=== PATIENT | male | born 1950 | race Caucasian/White ===

== ENCOUNTER 2019-03-17 11:00 | Inpatient (IN) | payer MEDICARE ==
[2019-03-17] MEDS ORDERED: SODIUM CHLORIDE 0.9% 1,000 ML IV STA (11:27)
[2019-03-17 11:46] LABS: Basophils # (A) 0.1 k/uL (0-0.2); Basophils % (A) 1 %; Eosinophils # (A) 0.5 k/uL (0-0.7); Eosinophils % (A) 7 %; HCT 44.7 % (39.0-53.0); HGB 14.6 gm/dL (13.0-17.5); Lymphocytes # (A) 2.1 k/uL (1.0-4.8); Lymphocytes % (A) 27 %; MCH 29.7 pg (25.0-35.0); MCHC 32.7 g/dL (31.0-37.0); MCV 90.7 fL (80.0-100.0); Mean Platelet Volume 7.8; Monocytes # (A) 0.4 k/uL (0-1.0); Monocytes % (A) 5 %; Neutrophils # (A) 4.7 k/uL (1.3-7.7); Neutrophils % (A) 60 %; Platelet Count 227 k/uL (150-450); RBC 4.93 m/uL (4.30-5.90); RDW 15.9 % (11.5-15.5); WBC 7.9 k/uL (3.8-10.6)
--- NOTE | 2019-03-17 11:51 | ED ---
Neuro HPI - General Chief Complaint: Neuro Symptoms/Deficit Stated Complaint: poss cva Time Seen by Provider: 03/17/19 11:11 Source: patient Mode of arrival: wheelchair Limitations: no limitations - History of Present Illness Is the patient presenting with stroke symptoms?: Yes Last Known Well Date: 03/15/19 -: days(s) Initial Comments: This is a 68-year-old male the ER for evaluation. Patient resents to ER for evaluation of strokelike symptoms slurred speech right-sided facial droop right- sided eye droop. Symptoms noted on Sunday they did and have mildly improved since. Symptoms of surgeon is to continue to wax and wane. Patient has elevated blood pressure takes no blood pressure medication. No significant medical history takes no medications. Patient occasionally will take a daily aspirin. Denies headache. No trauma. No fevers. Location: right face History of same: No Place: home Severity: mild Quality: weak Improves With: time Worsens With: none On Anticoagulants: No Context: sudden onset Associated Symptoms: denies other symptoms Treatments Prior to Arrival: none - Related Data Home Medications: Home Medications Medication Instructions Recorded Confirmed Aspirin EC [Ecotrin Low Dose] 81 mg PO DAILY 03/17/19 03/17/19 Cetirizine HCl [Zyrtec] 10 mg PO DAILY 03/17/19 03/17/19 Allergies/Adverse Reactions: Allergies Allergy/AdvReac Type Severity Reaction Status Date / Time No Known Allergies Allergy Verified 03/17/19 11:25 Review of Systems ROS Statement: Those systems with pertinent positive or pertinent negative responses have been documented in the HPI. ROS Other: All systems not noted in ROS Statement are negative. General Exam - General Exam Comments Initial Comments: NIH is 2 slurred speech Limitations: no limitations General appearance: alert, in no apparent distress Head exam: Present: atraumatic, normocephalic, normal inspection Eye exam: Present: normal appearance, PERRL, EOMI. Absent: scleral icterus, conjunctival injection, periorbital swelling ENT exam: Present: normal exam, mucous membranes moist Neck exam: Present: normal inspection. Absent: tenderness, meningismus, l ymphadenopathy Respiratory exam: Present: normal lung sounds bilaterally. Absent: respiratory distress, wheezes, rales, rhonchi, stridor Cardiovascular Exam: Present: regular rate, normal rhythm, normal heart sounds. Absent: systolic murmur, diastolic murmur, rubs, gallop, clicks GI/Abdominal exam: Present: soft, normal bowel sounds. Absent: distended, tenderness, guarding, rebound, rigid Extremities exam: Present: normal inspection, full ROM, normal capillary refill. Absent: tenderness, pedal edema, joint swelling, calf tenderness Back exam: Present: normal inspection Neurological exam: Present: alert, oriented X3, CN II-XII intact Psychiatric exam: Present: normal affect, normal mood Skin exam: Present: warm, dry, intact, normal color. Absent: rash Stroke MDM - Lab Data Result diagrams: 03/17/19 11:20 03/17/19 11:20 Lab Results 03/17/19 03/17/19 03/17/19 Range/Units 11:20 11:20 11:20 WBC 7.9 (3.8-10.6) k/uL RBC 4.93 (4.30-5.90) m/uL Hgb 14.6 (13.0-17.5) gm/dL Hct 44.7 (39.0-53.0) % MCV 90.7 (80.0-100.0) fL MCH 29.7 (25.0-35.0) pg MCHC 32.7 (31.0-37.0) g/dL RDW 15.9 H (11.5-15.5) % Plt Count 227 (150-450) k/uL Neutrophils % 60 % Lymphocytes % 27 % Monocytes % 5 % Eosinophils % 7 % Basophils % 1 % Neutrophils # 4.7 (1.3-7.7) k/uL Lymphocytes # 2.1 (1.0-4.8) k/uL Monocytes # 0.4 (0-1.0) k/uL Eosinophils # 0.5 (0-0.7) k/uL Basophils # 0.1 (0-0.2) k/uL PT 9.6 (9.0-12.0) sec INR 0.9 (<1.2) APTT 24.6 (22.0-30.0) sec Sodium 140 (137-145) mmol/L Potassium 4.2 (3.5-5.1) mmol/L Chloride 104 (98-107) mmol/L Carbon Dioxide 27 (22-30) mmol/L Anion Gap 9 mmol/L BUN 23 H (9-20) mg/dL Creatinine 1.25 (0.66-1.25) mg/dL Est GFR (CKD-EPI)AfAm 69 (>60 ml/min/1.73 sqM) Est GFR (CKD-EPI)NonAf 60 (>60 ml/min/1.73 sqM) Glucose 131 H (74-99) mg/dL Calcium 9.3 (8.4-10.2) mg/dL Total Bilirubin 0.7 (0.2-1.3) mg/dL AST 48 (17-59) U/L ALT 80 H (21-72) U/L Alkaline Phosphatase 186 H (38-126) U/L Troponin I (0.000-0.034) ng/mL Total Protein 7.6 (6.3-8.2) g/dL Albumin 4.2 (3.5-5.0) g/dL Urine Color Urine Appearance (Clear) Urine pH (5.0-8.0) Ur Specific Anthony (1.001-1.035) Urine Protein (Negative) Urine Glucose (UA) (Negative) Urine Ketones (Negative) Urine Blood (Negative) Urine Nitrite (Negative) Urine Bilirubin (Negative) Urine Urobilinogen (<2.0) mg/dL Ur Leukocyte Esterase (Negative) 03/17/19 03/17/19 Range/Units 11:20 12:15 WBC (3.8-10.6) k/uL RBC (4.30-5.90) m/uL Hgb (13.0-17.5) gm/dL Hct (39.0-53.0) % MCV (80.0-100.0) fL MCH (25.0-35.0) pg MCHC (31.0-37.0) g/dL RDW (11.5-15.5) % Plt Count (150-450) k/uL Neutrophils % % Lymphocytes % % Monocytes % % Eosinophils % % Basophils % % Neutrophils # (1.3-7.7) k/uL Lymphocytes # (1.0-4.8) k/uL Monocytes # (0-1.0) k/uL Eosinophils # (0-0.7) k/uL Basophils # (0-0.2) k/uL PT (9.0-12.0) sec INR (<1.2) APTT (22.0-30.0) sec Sodium (137-145) mmol/L Potassium (3.5-5.1) mmol/L Chloride (98-107) mmol/L Carbon Dioxide (22-30) mmol/L Anion Gap mmol/L BUN (9-20) mg/dL Creatinine (0.66-1.25) mg/dL Est GFR (CKD-EPI)AfAm (>60 ml/min/1.73 sqM) Est GFR (CKD-EPI)NonAf (>60 ml/min/1.73 sqM) Glucose (74-99) mg/dL Calcium (8.4-10.2) mg/dL Total Bilirubin (0.2-1.3) mg/dL AST (17-59) U/L ALT (21-72) U/L Alkaline Phosphatase (38-126) U/L Troponin I <0.012 (0.000-0.034) ng/mL Total Protein (6.3-8.2) g/dL Albumin (3.5-5.0) g/dL Urine Color Light Yellow Urine Appearance Clear (Clear) Urine pH 5.0 (5.0-8.0) Ur Specific Anthony 1.015 (1.001-1.035) Urine Protein Negative (Negative) Urine Glucose (UA) Negative (Negative) Urine Ketones Negative (Negative) Urine Blood Negative (Negative) Urine Nitrite Negative (Negative) Urine Bilirubin Negative (Negative) Urine Urobilinogen <2.0 (<2.0) mg/dL Ur Leukocyte Esterase Negative (Negative) - NIH Stroke Scale 1a. Level of Consciousness: (0) alert 1b. LOC Questions: (0) answers correctly 1c. LOC Commands: (0) performs tasks correctly 2. Best Gaze: (0) normal 3. Visual: (0) no visual loss 4. Facial Palsy: (0) normal symmetrical movement 5a. Motor Arm Left: (0) no drift 5b. Motor Arm Right: (0) no drift 6a. Motor Leg Left: (0) no drift 6b. Motor Leg Right: (0) no drift 7. Limb Ataxia: (0) absent 8. Sensory: (0) normal 9. Best Language: (1) mild/moderate aphasia 10. Dysarthria: (1) mild/moderate dysarthria 11. Extinction/Inattention: (0) no abnormality - Thrombolytic Inclusion/Exclusion Thrombolytic Exclusion Criteria: Symptom Onset > 3 Hours - Medical Decision Making 68 male the ER for evaluation hypertensive emergency with strokelike symptoms. Patient be admitted for blood pressure control aspirin neurology evaluation and continue monitoring of blood pressure - Radiology Data Radiology results: report reviewed (CT brain CTA had not negative for acute disease), image reviewed - EKG Data -: EKG Interpreted by Me (EKG shows normal sinus rhythm rate of 71, [place] 144, QRS 74, QTc 458) Past Medical History Past Medical History: No Reported History History of Any Multi-Drug Resistant Organisms: None Reported Past Surgical History: No Surgical Hx Reported Past Psychological History: No Psychological Hx Reported Smoking Status: Current some day smoker Past Alcohol Use History: Occasional Past Drug Use History: Marijuana Course Vital Signs 03/17/19 03/17/19 03/17/19 11:05 11:30 11:40 Temperature 98.5 F Pulse Rate 73 68 67 Respiratory 16 16 16 Rate Blood Pressure 213/113 208/108 192/143 O2 Sat by Pulse 97 96 97 Oximetry 03/17/19 12:50 Temperature Pulse Rate 60 Respiratory Rate Blood Pressure 204/94 O2 Sat by Pulse 98 Oximetry - Reevaluation(s) Reevaluation #1: 03/17/19 13:42 Medical records reviewed Reevaluation #2: 03/17/19 13:42 Patient's blood pressures improved remains severely elevated Critical Care Time Critical Care Time: Yes Total Critical Care Time: 31 Disposition Clinical Impression: Cerebrovascular accident, Hypertensive emergency Disposition: ADMITTED IP TO THIS [facility] Condition: Fair Is patient prescribed a controlled substance at d/c from ED?: No Referrals: Madhu Lombardo MD [Primary Care Provider] - 1-2 days
[2019-03-17 11:56] LABS: Albumin 4.2 g/dL (3.5-5.0); Calcium 9.3 mg/dL (8.4-10.2); Potassium 4.2 mmol/L (3.5-5.1); Total Bilirubin 0.7 mg/dL (0.2-1.3); Total Protein 7.6 g/dL (6.3-8.2)
[2019-03-17 12:01] LABS: INR 0.9 (<1.2)
[2019-03-17 12:02] LABS: Partial Thromboplastin Time 24.6 sec (22.0-30.0); Prothrombin Time 9.6 sec (9.0-12.0)
--- NOTE | 2019-03-17 12:19 | XR ---
EXAMINATION TYPE: XR chest 2V DATE OF EXAM: 03/17/2019 COMPARISON: NONE HISTORY: Altered mental status, slurred speech TECHNIQUE: Frontal and lateral views of the chest are obtained. FINDINGS: There is no focal air space opacity, pleural effusion, or pneumothorax seen. The cardiac silhouette size is within normal limits. The osseous structures are intact. There are overlying car diac leads. IMPRESSION: No acute cardiopulmonary process.
--- NOTE | 2019-03-17 12:20 | CT ---
EXAMINATION TYPE: CT brain wo con for TPA DATE OF EXAM: 03/17/2019 COMPARISON: None HISTORY: 68-year-old male Episode of right side facial numbness, droop, and slurred speech 3 days ago . TECHNIQUE: Examination was done in axial plane without intravenous contrast. Coronal and sagittal r econstructions performed. CT DLP: 1098.8 mGycm Automated exposure control for dose reduction was used. FINDINGS: There is no evidence of acute intracranial hemorrhage, acute ischemic changes, mass, mass-effect, or extra-axial fluid collection. There is no effacement of cerebral sulci or basal subarachnoid cister ns. There is no hydrocephalus. There is no midline shift. Weber-white matter distinction is preserv ed. Mild bifrontal cortical atrophy. Mild mucosal thickening right maxillary sinus. Cerumen within the right greater than left external au ditory canals. Mastoid air cells are well pneumatized. Orbits and globes appear intact. IMPRESSION: Mild bifrontal atrophy. No acute intracranial abnormality seen.
--- NOTE | 2019-03-17 12:29 | CT ---
EXAMINATION TYPE: CT angio head neck DATE OF EXAM: 03/17/2019 COMPARISON: CT brain noncontrast same day HISTORY: 68-year-old male with an episode of right side facial numbness, droop, and slurred speech 3 days ago. TECHNIQUE: Contiguous axial scanning of the neck and brain performed with IV Contrast, patient inject ed with 50 mL of Isovue 370. Coronal/sagittal MIP reconstructions performed. 3-D reconstructions gene rated on a dedicated independent workstation. CT DLP: 609.5 mGycm Automated exposure control for dose reduction was used. FINDINGS: Neck: Mild emphysematous change in the visualized upper lungs. Left apical pleural parenchymal scarring. Pr ominent adherent mucus and debris along the right posterolateral tracheal wall. There is conventional arterial vessel branching anatomy. Mild to moderate atherosclerotic plaque reva g the aortic arch. Brachiocephalic artery, right common carotid, and right internal carotid arteries are patent. Minimal atherosclerotic calcification at the right carotid bifurcation. There is retropharyngeal course of t he right CCA and ICA causing impression on the posterior pharyngeal wall. Left common and internal carotid arteries are patent with minimal atherosclerotic calcification of th e carotid bulb. Bilateral vertebral arteries are patent. Right vertebral artery is dominant. Head: The left vertebral artery becomes hypoplastic after the takeoff of the PICA. Diminutive versus hypoplastic P1 segment left posterior cerebral artery. Basilar artery is patent. Mild atherosclerotic calcifications within the carotid siphons. Anterior circulation appears patent. No aneurysmal change seen in the significant stenosis identified . IMPRESSION: 1. HEAD: DIMINUTIVE VERSUS HYPOPLASTIC P1 SEGMENT LEFT POSTERIOR CEREBRAL ARTERY. CORRELATE FOR POSSI BILITY OF FOCAL MODERATE TO SEVERE STENOSIS HERE. OTHERWISE, NO LARGE VESSEL INTRACRANIAL ARTERIAL OC CLUSION OR ANEURYSMAL CHANGE SEEN. 2. NECK: NO ICA STENOSIS. INCIDENTALLY, THE NONDOMINANT LEFT VERTEBRAL ARTERY BECOMES HYPOPLASTIC AFT ER THE LEFT PICA TAKEOFF.
[2019-03-17 12:49] LABS: Appearance,Urine Clear (Clear); Bilirubin,Urine Negative (Negative); Blood,Urine Negative (Negative); Color,Urine Light Yellow; Glucose,Urine (UA) Negative (Negative); Ketones,Urine Negative (Negative); Leukocyte Esterase,Urine Negative (Negative); Nitrite,Urine Negative (Negative); Protein,Urine Negative (Negative); Specific Gravity,Urine 1.015 (1.001-1.035); Urobilinogen,Urine <2.0 mg/dL (<2.0)
[2019-03-17] MEDS ORDERED: LABETALOL SYRINGE 5 MG/ML IVP STA (12:50)
[2019-03-17] MEDS ORDERED: ASPIRIN 81 MG PO STA (12:50)
[2019-03-17 14:59] VITALS: BMI 27.7
[2019-03-17] MEDS: SODIUM CHLORIDE 0.9% 1,000 ML IV SCH ×2 (16:33→19:56)
[2019-03-17] MEDS ORDERED: NALOXONE 0.4 MG/ML 1 ML VIAL IV PRN (17:13)
[2019-03-17] MEDS ORDERED: ACETAMINOPHEN TAB 325 MG TAB PO PRN (17:13)
--- NOTE | 2019-03-17 17:14 | P.HPIM ---
History of Present Illness H&P Date: 03/17/19 Chief Complaint: Neurological deficit 68-year-old male with no significant past medical history presents the ED for slurred speech, left-sided facial droop that has been ongoing since Sunday. Patient states that he was playing poker when the symptoms happened Sunday night. Symptoms lasted for 5 minutes and slowly went away. Patient also complained of slurred speech at that time. He denies any difficulty concentrating. He denies any difficult swallowing food. He denied any confusion. He denies any headache, lower extremity edema, nausea, vomiting, fever, cough, chest pain, shortness breath, changes in urination or bowel habits. No changes in appetite or weight. He denies any dizziness, numbness/weakness/tingling of the extremities. In the ED, his BP was 204/94. Vital signs were otherwise stable. CT of the brain was negative. CTA head and neck showed possible stenosis in the posterior left cerebral artery. CBC and CMP were unremarkable. Troponin was negative. Urinalysis was negative. Patient is admitted for possible CVA, neurology is consulted. Review of Systems Pertinent positives and negatives as discussed in HPI, a complete review of systems was performed and all other systems are negative. Past Medical History Past Medical History: GERD/Reflux, Hyperlipidemia, Hypertension Additional Past Medical History / Comment(s): Severe B12 deficiency, allergic rhinitis, pt/spouse state pt does not go to see a PCP very often. History of Any Multi-Drug Resistant Organisms: None Reported Past Surgical History: No Surgical Hx Reported Smoking Status: Current every day smoker - Past Family History Father Family Medical History: Congestive Heart Failure (CHF) Additional Family Medical History / Comment(s): Father at the age of 82 yrs from CHF. Mother Family Medical History: No Reported History Additional Family Medical History / Comment(s): Mother was healthy, not on any medications and lived to be 92 yrs old. Medications and Allergies Home Medications Medication Instructions Recorded Confirmed Type Aspirin EC [Ecotrin Low Dose] 81 mg PO DAILY 03/17/19 03/17/19 History Cetirizine HCl [Zyrtec] 10 mg PO DAILY 03/17/19 03/17/19 History Allergies Allergy/AdvReac Type Severity Reaction Status Date / Time No Known Allergies Allergy Verified 03/17/19 11:25 Physical Exam Vitals: Vital Signs Temp Pulse Resp BP Pulse Ox 03/17/19 16:00 51 L 162/86 97 03/17/19 15:00 49 L 165/96 95 03/17/19 14:00 155/92 93 L 03/17/19 13:40 54 L 18 161/96 94 L 03/17/19 12:50 60 204/94 98 03/17/19 11:40 67 16 192/143 97 03/17/19 11:30 68 16 208/108 96 03/17/19 11:05 98.5 F 73 16 213/113 97 Intake and Output 03/17/19 03/17/19 03/17/19 06:59 14:59 22:59 Other: Weight 103.419 kg General: [non toxic], [no distress], [appears at stated age] Derm: [warm], [dry] Head: [atraumatic], [normocephalic], [symmetric] Eyes: [EOMI], [no lid lag], [anicteric sclera] Mouth: [no lip lesion], [mucus membranes moist] Cardiovascular: [S1S2 reg], [no murmur], [positive posterior tibial pulse bilateral], Lungs: [CTA bilateral], [no rhonchi, no rales] , [no accessory muscle use] Abdominal: [soft], [ nontender to palpation], [no guarding], [no appreciable organomegaly] Ext: [no gross muscle atrophy], [no edema], [no contractures] Neuro: [ CN II-XI grossly intact except for cranial nerve VII on the left side], [no focal neuro deficits] Psych: [Alert], [oriented], [appropriate affect] Results CBC & Chem 7: 03/17/19 11:20 03/17/19 11:20 Labs: Abnormal Lab Results - Last 24 Hours (Table) 03/17/19 03/17/19 Range/Units 11:20 11:20 RDW 15.9 H (11.5-15.5) % BUN 23 H (9-20) mg/dL Glucose 131 H (74-99) mg/dL ALT 80 H (21-72) U/L Alkaline Phosphatase 186 H (38-126) U/L Thrombosis Risk Factor Assmnt - Choose All That Apply Any of the Below Risk Factors Present?: Yes Each Factor Represents 1 point: Obesity (BMI >25) Other Risk Factors: Yes Other congenital or acquired thrombophilia - If yes, enter type in comment: No Each Risk Factor Represents 5 Points: Stroke (< 1 month) Thrombosis Risk Factor Assessment Total Risk Factor Score: 6 Thrombosis Risk Factor Assessment Level: High Risk Assessment and Plan Assessment: Assessment and Plan Slurred speech, right-sided facial droop, concerns for CVA Hypertensive urgency Symptoms concerning of CVA. Brain CT shows no acute intracranial abnormality. CTA of the head and neck shows possible stenosis of the left posterior cerebral artery. Plans: Follow MRI brain. Follow-up echocardiogram. Follow A1c and lipid panel. Follow PT, OT and ST. Follow neurology consultation. Out of the window for permissive hypertension or for TPA. Continue aspirin and Lipitor. BP 162/86. Plans: Start amlodipine 10 mg by mouth daily. Start lisinopril 10 mg by mouth daily.. Monitor vitals, adjust medications as necessary. DVT prophylaxis heparin 5000 units subcutaneously twice a day. DVT prophylaxis: [Heparin] Discussed with: [Patient and ] Anticipated discharge: [Home] Anticipated discharge place: [1-2 days] A total of [45] minutes was spent on the care of this complex patient more than 50% of the time was spent in counseling and care coordination.
[2019-03-17] MEDS: amLODIPine 10 MG TAB PO SCH (17:42)
[2019-03-17] MEDS: LISINOPRIL 10 MG TAB PO SCH (17:42)
[2019-03-17] MEDS: HEPARIN SODIUM,PORCINE 5,000 UNIT/ML 1 ML VIAL SQ SCH (19:54)
[2019-03-17] MEDS ORDERED: ATORVASTATIN 80 MG TAB PO SCH (21:00)
[2019-03-18 03:15] LABS: Cholesterol 195 mg/dL (<200); HDL Cholesterol 41 mg/dL (40-60); LDL Cholesterol,Calculated 108 mg/dL (0-99); Triglycerides 228 mg/dL (<150)
[2019-03-18] MEDS: HEPARIN SODIUM,PORCINE 5,000 UNIT/ML 1 ML VIAL SQ SCH (08:04)
[2019-03-18] MEDS: amLODIPine 10 MG TAB PO SCH (08:04)
[2019-03-18] MEDS: LISINOPRIL 10 MG TAB PO SCH (08:04)
[2019-03-18] MEDS ORDERED: ASPIRIN 325 MG TAB PO SCH (09:00)
[2019-03-18 10:44] VITALS: RESP 16; TEMP 97.6
--- NOTE | 2019-03-18 11:11 | MR ---
MR brain without contrast HISTORY: Cerebral vascular accident Multiplanar multisequence imaging through the brain and correlated to CT brain 03/17/2019 There is restricted diffusion present within the posterior limb internal capsule, globus pallidus on the right, corresponding hyperintensity is present on T2 and inversion recovery sequences consistent with patient's history of surgery last accident. There is no hemorrhage or hydrocephalus. Some scatte red hyperintensities are present within the deep white matter on inversion recovery T2-weighted seque nces, approximately 5 lesions. There are normal vascular flow voids. Cerebellopontine angles, corpus callosum, pituitary, cervical medullary junction are normal. Orbits show symmetric appearance. Mild m ucosal disease present within the maxillary sinuses. Orbits show symmetric appearance. IMPRESSION: Subacute infarct as described.
--- NOTE | 2019-03-18 11:48 | P.PN ---
Subjective Progress Note Date: 03/18/19 Principal diagnosis: CVA Patient was seen and examined. No acute events overnight. Patient reports no changes in symptoms from last night. He does complain of facial droop. He denies chest pain, shortness of breath or palpitations. Wanting to go home. Objective - Vital Signs Vital signs: Vital Signs Temp 97.6 F 03/18/19 07:50 Pulse 64 03/18/19 07:50 Resp 16 03/18/19 07:50 BP 172/89 03/18/19 07:50 Pulse Ox 96 03/18/19 07:50 Intake & Output 03/17/19 03/18/19 03/18/19 18:59 06:59 18:59 Intake Total 300 480 Output Total 1100 Balance 300 -620 Weight 103.419 kg 101 kg Intake: Intake, IV Titration 300 Amount Sodium Chloride 0.9% 1, 300 000 ml @ 100 mls/hr IV . Q10H [facility] Rx#:[id number] Oral 480 Output: Urine 1100 Other: # Voids 1 - Exam General: [non toxic], [no distress], [appears at stated age] Derm: [warm], [dry] Head: [atraumatic], [normocephalic], [symmetric] Eyes: [EOMI], [no lid lag], [anicteric sclera] Mouth: [no lip lesion], [mucus membranes moist] Cardiovascular: [S1S2 reg], [no murmur], [positive posterior tibial pulse bilateral], Lungs: [CTA bilateral], [no rhonchi, no rales] , [no accessory muscle use] Abdominal: [soft], [ nontender to palpation], [no guarding], [no appreciable organomegaly] Ext: [no gross muscle atrophy], [no edema], [no contractures] Neuro: [ CN II-XI grossly intact except for cranial nerve VII on the left side], [no focal neuro deficits] Psych: [Alert], [oriented], [appropriate affect] - Labs CBC & Chem 7: 03/17/19 11:20 03/17/19 11:20 Labs: Abnormal Lab Results - Last 24 Hours (Table) 03/17/19 03/17/19 03/17/19 Range/Units 11:20 11:20 11:20 RDW 15.9 H (11.5-15.5) % BUN 23 H (9-20) mg/dL Glucose 131 H (74-99) mg/dL ALT 80 H (21-72) U/L Alkaline Phosphatase 186 H (38-126) U/L Triglycerides 228 H (<150) mg/dL LDL Cholesterol, Calc 108 H (0-99) mg/dL Assessment and Plan Assessment: Assessment and Plan Slurred speech, right-sided facial droop, concerns for CVA Hypertensive urgency Symptoms concerning of CVA. Brain CT shows no acute intracranial abnormality. CTA of the head and neck shows possible stenosis of the left posterior cerebral artery. MRI brain shows subacute CVA within the posterior limb of the internal capsule. Lipid panel shows LDL 108 and T. Chol 228. Plans: Follow-up echocardiogram. Follow A1c. Follow PT, OT and ST. Follow neurology consultation. Out of the window for permissive hypertension or for TPA. Continue aspirin and Lipitor. BP 172/89. Plans: Start amlodipine 10 mg by mouth daily. Start lisinopril 10 mg by mouth daily. Add Coreg 3.125 mg PO BID. Monitor vitals, adjust medications as necessary. DVT prophylaxis heparin 5000 units subcutaneously twice a day. CVA workup pending. Will DC when complete and Neuro evaluation.
[2019-03-18] MEDS: SODIUM CHLORIDE 0.9% 1,000 ML IV SCH (11:50)
--- NOTE | 2019-03-18 11:56 | ECHOF ---
Referral Reason:CVA MEASUREMENTS -------- HEIGHT: 188.0 cm WEIGHT: 102.5 kg BP: IVSd: 1.4 cm (0.6 - 1.1) LVIDd: 3.2 cm (3.9 - 5.3) LVPWd: 1.5 cm (0.6 - 1.1) IVSs: 2.0 cm LVIDs: 2.3 cm LVPWs: 1.4 cm LAESV Index (A-L): 18.43 ml/m Ao Diam: 3.5 cm (2.0 - 3.7) AV Cusp: 2.0 cm (1.5 - 2.6) LA Diam: 3.3 cm (2.7 - 3.8) MV EXCURSION: 11.714 mm (> 18.000) MV EF SLOPE: 80 mm/s (70 - 150) EPSS: 1.3 cm MV E Nicolás: 0.72 m/s MV A Nicolás: 0.85 m/s MV E/A Ratio: 0.85 RAP: 15.00 mmHg RVSP: 28.36 mmHg FINDINGS -------- Sinus rhythm. This was a technically good study. The left ventricular size is normal. There is moderate concentric left ventricular hypertrophy. O verall left ventricular systolic function is normal with, an EF between 55 - 60 %. The right ventricular wall thickness is normal measuring < 5mm. The left atrial size is normal. Normal LA size by volume 22+/-6 ml/m2. The right atrial size is normal. Interatrial and interventricular septum intact. The aortic valve is trileaflet and appears structurally normal. The mitral valve is normal. The mitral valve leaflets are mildly thickened. Mild mitral regurgita tion is present. Mild tricuspid regurgitation present. Right ventricular systolic pressure is normal at < 35 mmHg. There is no pulmonic regurgitation present. The aortic root size is normal. The inferior vena cava is mildly dilated but collapses. There is no pericardial effusion. CONCLUSIONS -------- 1. Sinus rhythm. 2. This was a technically good study. 3. The left ventricular size is normal. 4. There is moderate concentric left ventricular hypertrophy. 5. Overall left ventricular systolic function is normal with, an EF between 55 - 60 %. 6. The right ventricular wall thickness is normal measuring < 5mm. 7. The left atrial size is normal. 8. Normal LA size by volume 22+/-6 ml/m2. 9. The right atrial size is normal. 10. Interatrial and interventricular septum intact. 11. The aortic valve is trileaflet and appears structurally normal. 12. The mitral valve is normal. 13. The mitral valve leaflets are mildly thickened. 14. Mild mitral regurgitation is present. 15. Mild tricuspid regurgitation present. 16. Right ventricular systolic pressure is normal at < 35 mmHg. 17. There is no pulmonic regurgitation present. 18. The aortic root size is normal. 19. The inferior vena cava is mildly dilated but collapses. 20. There is no pericardial effusion. RECORDS MANAGEMENT CLERK: Nena Jeffery RDCS
[2019-03-18] MEDS: CARVEDILOL 3.125 MG TAB PO SCH ×2 (12:31→17:31)
[2019-03-18 14:39] LABS: Hemoglobin A1C 5.7 % (4.0-6.0)
--- NOTE | 2019-03-18 14:40 | P.CNNES ---
History of Present Illness Consult date: 03/18/19 Requesting physician: Jarek Kyle Reason for Consult: CVA Chief complaint: "I have a left facial droop since last Sunday" History of Present Illness: 68 RH male whose vascular risk factors include advancing age, HTN and tobacco use who was playing poker on 03/14/19 when he developed acute onset of left facial droop with slurred speech. His FD has improved since then but not resolved. No facial numbness or other focal neuro sx. He stopped taking his antihypertensives years ago. Does take an aspirin everyday and had been prior to his new-onset FD and dysarthria. Reportedly, he passed the dysphagia screen in the ER and was seen by SP this morning. He just had some pizza and is now coughing. Review of Systems 14-point ROS performed and as per HPI. Neurologically, patient denies decreased level or loss of consciousness, headache, seizure, changes in vision, diplopia, amaurosis, changes in hearing, facial numbness, ptosis, vertigo, hearing loss, tinnitus, aphasia, other focal numbness/weakness not mentioned above, tremors, bowel/bladder incontinence or ataxia. Past Medical History Past Medical History: GERD/Reflux, Hyperlipidemia, Hypertension Additional Past Medical History / Comment(s): Severe B12 deficiency, allergic rhinitis, pt/spouse state pt does not go to see a PCP very often. History of Any Multi-Drug Resistant Organisms: None Reported Past Surgical History: No Surgical Hx Reported Smoking Status: Current every day smoker - Past Family History Father Family Medical History: Congestive Heart Failure (CHF) Additional Family Medical History / Comment(s): Father at the age of 82 yrs from CHF. Mother Family Medical History: No Reported History Additional Family Medical History / Comment(s): Mother was healthy, not on any medications and lived to be 92 yrs old. Medications and Allergies Home Medications Medication Instructions Recorded Confirmed Type Aspirin EC [Ecotrin Low Dose] 81 mg PO DAILY 03/17/19 03/17/19 History Cetirizine HCl [Zyrtec] 10 mg PO DAILY 03/17/19 03/17/19 History Allergies Allergy/AdvReac Type Severity Reaction Status Date / Time No Known Allergies Allergy Verified 03/17/19 11:25 Physical Examination - Vital Signs Vital Signs: Vital Signs Temp Pulse Pulse Resp BP BP Pulse Ox 03/18/19 07:50 97.6 F 64 16 172/89 96 03/18/19 04:00 98 F 57 L 20 143/74 96 03/17/19 23:30 97.4 F L 60 18 167/71 96 03/17/19 19:54 59 L 18 185/88 96 03/17/19 18:50 57 L 16 190/85 96 03/17/19 16:50 98.1 F 56 L 18 210/103 99 03/17/19 16:00 51 L 162/86 97 03/17/19 15:00 49 L 165/96 95 Intake and Output 03/17/19 03/18/19 03/18/19 22:59 06:59 14:59 Intake Total 300 480 Output Total 1100 Balance 300 -620 Intake: Intake, IV Titration 300 Amount Sodium Chloride 0.9% 1, 300 000 ml @ 100 mls/hr IV . Q10H [facility] Rx#:[id number] Oral 480 Output: Urine 1100 Other: # Voids 1 Weight 101 kg Gen NAD Pleasant and cooperative HEENT NCAT Sclera without icterus O/P clear Neck Supple No carotid bruit Cor RRR no m/r/g Lungs CTAB Abd Soft NTND +BS Ext Warm to touch No edema Neuro MS A+Ox4 Normal fluency Able to follow all commands CN PERRL VFF no APD EOMI no nystagmus or HERMAN No Left UMN FD [place]'s symmetric Hearing intact to normal voice bilaterally Speech not dysarthric Equal elevation of palate Tongue midline Sym shrug and SCM bilaterally Motor Normal bulk/tone No pronator drift or tremors Strength 5/5 sym throughout Sens Intact to LT x4 No neglect or extinction Coord No dysmetria on FTN bilaterally DTRs 2+/4 sym throughout Toes downgoing bilaterally No clonus at achilles Gait Deferred NIHSS [address] head without contrast 03/17/19. Mild bifrontal atrophy. No acute intracranial abnormality seen. CT angiogram of the head and neck 03/17/19. 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 Otherwise no intra-or extracranial large vessel stenosis or occlusion. Incidental finding of nondominant left vertebral artery that becomes hypoplastic after doing left PICA takeoff. MRI Brain without gadolinium 03/18/19. Area of restricted diffusion in the posterior limb of the internal capsule and globus pallidus on the right with corresponding hypointensity on T2/FLAIR sequences suggestive of subacute ischemic infarct. There are also scattered subcortical hyperintensities bilaterally consistent with chronic microvascular ischemic disease. Transthoracic echocardiogram 03/18/19. Left ventricular size is normal. There is moderate concentric left ventricular hypertrophy. EF is between 55-60%. Left atrial size is normal. Inter-atrial and interventricular septum intact. No intracardiac thrombi are seen. - Laboratory Findings CBC and BMP: 03/17/19 11:20 03/17/19 11:20 Abnormal Lab Findings: Abnormal Labs 03/17/19 03/17/19 03/17/19 11:20 11:20 11:20 RDW 15.9 H BUN 23 H Glucose 131 H ALT 80 H Alkaline Phosphatase 186 H Triglycerides 228 H LDL Cholesterol, Calc 108 H Assessment and Plan Assessment: Right IC/GP subacute ischemic infarct, likely due to intracranial ath erosclerosis/thrombosis from uncontrolled HTN and ongoing tobacco use. 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 Plan: -Since patient was compliant with aspirin prior to his current stroke, will switch him to clopidogrel 75mg/day indefinitely. -Statin therapy. -Fine to treat BP to normotensive range as he is 4 days out from the onset of his acute stroke that is now subacute. -Goals BP <130/80, hga1c <7.0 and LDL <70. -Tobacco cessation counseling done. -Stroke education given to patient and . -PT/OT/SP per protocol. Since he is coughing after eating pizza, I have asked SP to come evaluate him again. -DVT prophylaxis: Heparin SC. -d/w patient and . All questions answered. -Once cleared by SP, may discharge from neuro standpoint. Please refer to outpatient neurology for follow-up within next 2-3 weeks. -No further neuro recs at this time. Please call with new ?. Thank you for this consultation. Time with Patient: Greater than 30 (Time spent in direct patient care, greater than 50% of which was spent in [id number] counseling and coordination of care: 70 minutes.)
[2019-03-18] MEDS ORDERED: CLOPIDOGREL 75 MG TAB PO SCH (14:45)
--- NOTE | 2019-03-18 16:22 | P.DS ---
Providers Date of admission: 03/17/19 13:33 Expected date of discharge: 03/18/19 Attending physician: Fallon Bajwa MD Consults: 03/18/19 09:24 Consult Physician Routine Consulting Provider: Hemal Martinez Consult Reason/Comments: cva Do you want consulting provider notified?: Yes Primary care physician: [facility] Course: 68-year-old male with no significant past medical history presents the ED for slurred speech, left-sided facial droop that has been ongoing since Sunday. Patient states that he was playing poker when the symptoms happened Sunday night. Symptoms lasted for 5 minutes and slowly went away. Patient also complained of slurred speech at that time. He denies any difficulty concentrating. He denies any difficult swallowing food. He denied any confusion. He denies any headache, lower extremity edema, nausea, vomiting, fever, cough, chest pain, shortness breath, changes in urination or bowel habits. No changes in appetite or weight. He denies any dizziness, numbness/weakness/tingling of the extremities. In the ED, his BP was 204/94. Vital signs were otherwise stable. CT of the brain was negative. CTA head and neck showed possible stenosis in the posterior left cerebral artery. CBC and CMP were unremarkable. Troponin was negative. Urinalysis was negative. Patient is admitted for possible CVA, neurology is consulted. CT of the head and neck showed possible stenosis of the left posterior cervical artery. MRI of the brain showed subacute stroke within the posterior limb of the internal capsule. Lipid panel showed LDL and total cholesterol 228. Echocardiogram showed EF of 55-60% with moderate LVH. Neurology evaluated the patient included the patient for discharge. Patient was cleared from physical therapy, occupational therapy and speech therapy. Assessment and Plan Slurred speech, right-sided facial droop, concerns for CVA Hypertensive urgency Symptoms concerning of CVA. Brain CT shows no acute intracranial abnormality. CTA of the head and neck shows possible stenosis of the left posterior cerebral artery. MRI brain shows subacute CVA within the posterior limb of the internal capsule. Lipid panel shows LDL 108 and T. Chol 228. Echocardiogram shows EF 55- 60% with moderate concentric LVH. Plans: Follow A1c. Follow PT, OT and ST. Follow neurology consultation. Out of the window for permissive hypertension or for TPA. Continue aspirin and Lipitor. BP 172/89. Plans: Start amlodipine 10 mg by mouth daily. Start lisinopril 10 mg by mouth daily. Add Coreg 3.125 mg PO BID. Monitor vitals, adjust medications as necessary. DVT prophylaxis heparin 5000 units subcutaneously twice a day. CVA workup complete. Cleared by neurology. Cleared by PT, OT and ST. Pertinent Studies: CT brain, CTA head and neck, echocardiogram, MRI brain. Patient Condition at Discharge: Stable Plan - Discharge Summary Discharge Rx Participant: No New Discharge Prescriptions: New Carvedilol [Coreg] 3.125 mg PO BID-W/MEALS #180 tab Atorvastatin [Lipitor] 80 mg PO HS #90 tab amLODIPine [Norvasc] 10 mg PO DAILY #90 tab Clopidogrel [Plavix] 75 mg PO DAILY #90 tab Lisinopril [Zestril] 10 mg PO DAILY #90 tab Continue Cetirizine HCl [Zyrtec] 10 mg PO DAILY Discontinued Aspirin EC [Ecotrin Low Dose] 81 mg PO DAILY Discharge Medication List Cetirizine HCl [Zyrtec] 10 mg PO DAILY 03/17/19 [History] Atorvastatin [Lipitor] 80 mg PO HS #90 tab 03/18/19 [Rx] Carvedilol [Coreg] 3.125 mg PO BID-W/MEALS #180 tab 03/18/19 [Rx] Clopidogrel [Plavix] 75 mg PO DAILY #90 tab 03/18/19 [Rx] Lisinopril [Zestril] 10 mg PO DAILY #90 tab 03/18/19 [Rx] amLODIPine [Norvasc] 10 mg PO DAILY #90 tab 03/18/19 [Rx] Follow up Appointment(s)/Referral(s): Madhu Lombardo MD [Primary Care Provider] - 1-2 days Mick Sim MD [STAFF PHYSICIAN] - 1 Week Activity/Diet/Wound Care/Special Instructions: diet: Heart healthy Follow-up PCP within 1-2 days of discharge. Follow-up with neurology within 1 week of discharge. Take all medications as advised. You will need additional speech therapy sessions through your PCP. Discharge Disposition: HOME SELF-CARE
[2019-03-18 16:59] VITALS: BP 182/90; PULSE 63
== END 2019-03-18 17:37 | disposition home or self-care (01) | DRG 65 ==
LOC: EC 11:00 → 3SCARD 13:33
PROVIDERS: ADMIT Internal Medicine; ATTEND Internal Medicine
DX: I63.9 Cerebral infarction, unspecified (principal); I16.1 Hypertensive emergency; R29.702 NIHSS score 2; R47.81 Slurred speech; R29.810 Facial weakness; R40.2362 Coma scale, best motor response, obeys commands, at arrival to emergency department; E53.8 Deficiency of other specified B group vitamins; Z68.27 Body mass index [BMI] 27.0-27.9, adult; E66.9 Obesity, unspecified; R40.2142 Coma scale, eyes open, spontaneous, at arrival to emergency department; K21.9 Gastro-esophageal reflux disease without esophagitis; R40.2252 Coma scale, best verbal response, oriented, at arrival to emergency department; J30.9 Allergic rhinitis, unspecified; E78.5 Hyperlipidemia, unspecified; F17.200 Nicotine dependence, unspecified, uncomplicated; I10 Essential (primary) hypertension; Z79.82 Long term (current) use of aspirin; Z79.899 Other long term (current) drug therapy; Z82.49 Family history of ischemic heart disease and other diseases of the circulatory system
CPT/HCPCS: 36415; 70450; 70496; 70498; 70551; 71046; 80053; 80061; 81003; 83036; 84484; 85025; 85610; 85730; 93005; 93306

== ENCOUNTER → 2019-09-23 | Outpatient (CLI) | payer MEDICARE ==
--- NOTE | 2019-09-23 10:39 | US ---
EXAMINATION TYPE: US abdomen complete DATE OF EXAM: 09/23/2019 COMPARISON: NONE CLINICAL HISTORY: R63.4 WEIGHT LOSS. EXAM MEASUREMENTS: Liver Length: 14.1 cm Gallbladder Wall: 0.6 cm CBD: 0.9 cm Spleen: 14.6 cm Right Kidney: 12.1 x 5.3 x 4.3cm Left Kidney: 10.1 x 4.7 x 4.4 cm Pancreas: somewhat limited visualization due to overlying bowel gas, portions visualized wnl Liver: Coarsened echo pattern Gallbladder: large stone vs sludge ball, wall thickened lower Evidence for sonographic Marino's sign: no CBD: dilated Spleen: measures large Right Kidney: measures large Left Kidney: lobular, measures smaller than right Upper IVC: wnl Abd Aorta: atherosclerotic changes throughout, proximal portion obscured by bowel gas, right iliac p rominent at 1.3cm IMPRESSION: 1. Large gallstone with gallbladder sludge and gallbladder wall thickening correlate for cholecystiti s. 2. Common bile duct measures 9 mm and is dilated distal CBD stone or pathology in the differential di agnosis. 3. Mild splenomegaly. 4. The liver echo pattern is somewhat coarsened which could be associated with hepatic steatosis or h epatocellular disease correlate clinically.
== END | disposition home or self-care (01) ==
LOC: RADUSWWP 09:55
PROVIDERS: ATTEND Internal Medicine
DX: K80.20 Calculus of gallbladder without cholecystitis without obstruction (principal); R16.1 Splenomegaly, not elsewhere classified; R93.2 Abnormal findings on diagnostic imaging of liver and biliary tract
CPT/HCPCS: 76700

== ENCOUNTER → 2021-05-26 | Outpatient (CLI) | payer MEDICARE ==
[2021-05-26 13:18] LABS: Albumin 3.4 g/dL (3.5-5.0); Calcium 9.2 mg/dL (8.4-10.2); Potassium 4.5 mmol/L (3.5-5.1); Total Bilirubin 0.8 mg/dL (0.2-1.3); Total Protein 6.2 g/dL (6.3-8.2)
[2021-05-26 13:34] LABS: Basophils # (A) 0.1 k/uL (0-0.2); Basophils % (A) 1 %; Eosinophils # (A) 0.2 k/uL (0-0.7); Eosinophils % (A) 2 %; HGB 14.1 gm/dL (13.0-17.5); Lymphocytes # (A) 1.2 k/uL (1.0-4.8); Lymphocytes % (A) 11 %; MCHC 33.7 g/dL (31.0-37.0); Mean Platelet Volume 7.3; Monocytes # (A) 0.6 k/uL (0-1.0); Monocytes % (A) 5 %; Neutrophils # (A) 9.3 k/uL (1.3-7.7); Neutrophils % (A) 82 %; Platelet Count 547 k/uL (150-450); RBC 4.56 m/uL (4.30-5.90); RDW 13.8 % (11.5-15.5); WBC 11.4 k/uL (3.8-10.6)
--- NOTE | 2021-05-26 13:53 | CT ---
EXAMINATION TYPE: CT abdomen pelvis w con DATE OF EXAM: 05/26/2021 COMPARISON: Ultrasound abdomen September 23, 2019 HISTORY: Decreased appetite, diarrhea, left lower quadrant pain. CT DLP: 996.7 mGycm, Automated Exposure Control for Dose Reduction was Utilized. CONTRAST: CT scan of the abdomen and pelvis is performed without oral but with IV Contrast, patient injected wi th 80 mL of Isovue M300. FINDINGS: LUNG BASES: No significant abnormality is appreciated. LIVER/GB: Gallbladder not distinctly visualized, may be surgically absent. Liver somewhat small in si ze with adjacent moderate ascites. No new biliary dilatation. PANCREAS: No significant abnormality is seen. SPLEEN: Spleen remains mildly enlarged at 13.8 cm long axis coronal image 65 with moderate adjacent a scites. ADRENALS: Nonspecific 2.4 cm right adrenal mass axial image 21 warrants follow-up. Slightly smaller n odularity left adrenal gland axial image 24 favored benign. KIDNEYS: Slight asymmetric diminished size and cortical thinning left kidney. No hydronephrosis ident ified, no excretion noted on delayed images however. BOWEL: Stomach poorly distended and suboptimally evaluated. No suspicious small or large bowel dilata tion. Hyperdense material distally likely reflects ingested food product. Slightly suboptimal evaluat ion of bowel without enteric contrast. PROSTATE/SEMINAL VESICLES: Mildly enlarged prostate bulging on bladder base with central calcificatio ns. LYMPH NODES: No greater than 1cm abdominal or pelvic lymph nodes are appreciated. OSSEOUS STRUCTURES: No significant abnormality is seen. OTHER: Small to moderate amount of nonsimple ascites as does not layer dependently and is not more pr ominent in the pelvis. There is irregular linear component in the mid abdomen with suggestion of some mass effect on the serosal surface of the adjacent bowel loops. [id number] calcified plaque of the aorta extends into branch vessels. IMPRESSION: New small to moderate amount of intra-abdominal nonsimple ascites. Peritoneal carcinomato sis is suspected. Imaging guided sampling for diagnostic purposes may be beneficial.
[2021-05-27 11:50] LABS: Protein, Total 6.4 g/dL (6.2-8.2)
== END | disposition home or self-care (01) ==
LOC: RADCTMAIN 12:20
PROVIDERS: ATTEND Internal Medicine
DX: R18.8 Other ascites (principal)
CPT/HCPCS: 80053; 84443; 82150; 83690; 85025; 84165; 74177; 36415; Q9967 ×2

== ENCOUNTER 2021-06-01 16:27 | Emergency (ER) | payer MEDICARE ==
[2021-06-01] MEDS ORDERED: SODIUM CHLORIDE 0.9% 1,000 ML IV STA (18:35)
[2021-06-01] MEDS ORDERED: ONDANSETRON 4 MG/2 ML VIAL IVP STA (18:35)
[2021-06-01 18:55] LABS: Basophils # (A) 0.1 k/uL (0-0.2); Basophils % (A) 0 %; Eosinophils # (A) 0.2 k/uL (0-0.7); Eosinophils % (A) 1 %; HCT 44.4 % (39.0-53.0); HGB 15.3 gm/dL (13.0-17.5); Lymphocytes # (A) 1.2 k/uL (1.0-4.8); Lymphocytes % (A) 10 %; MCH 30.9 pg (25.0-35.0); MCHC 34.5 g/dL (31.0-37.0); MCV 89.7 fL (80.0-100.0); Monocytes # (A) 0.7 k/uL (0-1.0); Monocytes % (A) 6 %; Neutrophils # (A) 9.5 k/uL (1.3-7.7); Neutrophils % (A) 81 %; Platelet Count 480 k/uL (150-450); RBC 4.95 m/uL (4.30-5.90); RDW 13.2 % (11.5-15.5); WBC 11.7 k/uL (3.8-10.6)
--- NOTE | 2021-06-01 19:03 | ED ---
General Adult HPI - General Chief complaint: Weakness Stated complaint: not able to eat, fluid on Abdomen Time Seen by Provider: 06/01/21 18:11 Source: patient, RN notes reviewed, old records reviewed Mode of arrival: ambulatory Limitations: no limitations - History of Present Illness Initial comments: Evaluated the patient when he was placed in a room. Patient is a 70-year-old male with past medical history remarkable for hypertension, hyperlipidemia, GERD, ALLERGIC rhinitis who is recently diagnosed ascites of unknown etiology as well as a plan for diagnostic paracentesis with possible biopsy of a masslike structure in his abdomen presents emergency Department with a chief complaint of possible dehydration. Patient states he has been having no appetite either. Is been having his typical abdominal discomfort since being diagnosed with ascites recently. He had a CT abdomen and pelvis earlier this week that revealed the ascites as well as possible mass which is being worked up outpatient. He denies any chest pain but does endorse some intermittent abnormal dyspnea which is usually when he has some intermittent abdominal discomfort. He did climes knowing any palliative or provocative factors for any of his symptoms. He believes is dehydrated but states he has no appetite to eat or drink. He has been trying to drink. That is his primary complaint at this time. Denies any recent weight loss to his knowledge. Denies any history of blood clots. Denies any headache or weakness. Patient otherwise has no acute complaints, denying any change in stooling or urinary complaints. Patient presents primarily for evaluation over concern for his loss of appetite. - Related Data Home Medications Medication Instructions Recorded Confirmed Ciprofloxacin HCl [Cipro] 500 mg PO BID 06/01/21 06/01/21 Previous Rx's Medication Instructions Recorded Atorvastatin [Lipitor] 80 mg PO HS #90 tab 03/18/19 Clopidogrel [Plavix] 75 mg PO DAILY #90 tab 03/18/19 carvediloL [Coreg] 3.125 mg PO BID-W/MEALS #180 tab 03/18/19 lisinopriL [Zestril] 10 mg PO DAILY #90 tab 03/18/19 Ondansetron Odt [Zofran Odt] 4 mg PO Q8HR PRN 2 Days #6 tab 06/01/21 Allergies Allergy/AdvReac Type Severity Reaction Status Date / Time No Known Allergies Allergy Verified 06/01/21 19:03 Review of Systems ROS Statement: Those systems with pertinent positive or pertinent negative responses have been documented in the HPI. Review of Systems: CONST: Denies fever EYES: Denies blurry vision ENT: Denies nasal congestion C/V: Denies Chest pain RESP: Endorses intermittent dyspnea of unknown etiology GI: Endorses abdominal ascites : Denies dysuria SKIN: Denies rash. MSK: Denies joint pain. NEURO: Denies headache ROS Other: All systems not noted in ROS Statement are negative. Past Medical History Past Medical History: GERD/Reflux, Hyperlipidemia, Hypertension Additional Past Medical History / Comment(s): Severe B12 deficiency, allergic rhinitis History of Any Multi-Drug Resistant Organisms: None Reported Past Surgical History: Cholecystectomy Past Anesthesia/Blood Transfusion Reactions: No Reported Reaction Past Psychological History: No Psychological Hx Reported Smoking Status: Former smoker Past Alcohol Use History: Occasional Past Drug Use History: Marijuana - Past Family History Father Family Medical History: Congestive Heart Failure (CHF) Additional Family Medical History / Comment(s): Father at the age of 82 yrs from CHF. Mother Family Medical History: No Reported History Additional Family Medical History / Comment(s): Mother was healthy, not on any medications and lived to be 92 yrs old. General Exam - General Exam Comments Initial Comments: General: Appears in no acute distress. HEAD: Normal with no signs of head trauma. EYES: PERRLA, EOMI, conjunctiva normal, no discharge. ENT: Hearing grossly intact, normal oropharynx. RESPIRATORY: Clear breath sounds bilaterally. No wheezes, rales, or rhonchi. C/V: Patient is tachycardic with a regular rhythm. S1 and S2 auscultated. Peripheral pulses are 2+ and intact throughout. There is no peripheral edema. ABD: Abdomen soft, nondistended. It is nontender to palpation. No peritoneal signs. No rebound tenderness. EXT: Normal range of motion, no obvious deformity SKIN: No rashes or lesions observed on exposed skin. NEURO: Alert and oriented 4. No focal sensory strength deficits. Limitations: no limitations Course Vital Signs 06/01/21 06/01/21 06/01/21 17:00 19:29 21:16 Temperature 97.7 F 98.1 F Pulse Rate 97 109 H 105 H Respiratory 16 20 20 Rate Blood Pressure 132/76 151/88 138/97 O2 Sat by Pulse 93 L 99 94 L Oximetry Medical Decision Making - Medical Decision Making Based on the patient's presentation and physical exam, is likely experiencing symptoms related to his possible abdominal cancer which is being worked up on an outpatient basis. However patient is tachycardic with an unknown etiology, possible dehydration. I cannot rule out the possibility of pulmonary embolism at this time as patient does not perC out, and he has a low Well's score for PE, so d-dimer in addition to abdominal laboratory studies as well as cardiac workup including troponin and EKG will be obtained. Patient was in agreement this plan. He'll be given a 1 L fluid bolus as well as IV Zofran for symptomatically treatment. He will be connected to continuous cardiac monitoring while is here in the department. Patient was in agreement this plan. His EKG shows no signs of acute ischemia on but does reveal sinus tachycardia. Laboratory studies were remarkable for a very mild leukocytosis of 11.7. Platelet count is mildly elevated 480. Patient has an elevated d-dimer 7.63. She has mild hyponatremia and hypochloremia at 130-95 respectively. Troponin is negative. Remainder the laboratory studies are unremarkable. On reevaluation come patient's tachycardia is improved to approximately 105. However due to the elevated d-dimer did recommend that we obtain a CT angiogram of pulmonary embolus and. He was in agreement this plan. CT angiogram did not reveal pulmonary embolism. It revealed chronic changes and his abdomen previously seen on prior CT abdomen and pelvis. I discussed the findings with the patient. He is feeling improved. He is time by mouth intake. Vital signs are improved. I believe it is safer to be discharged home with his prescheduled follow-up with his PCP and to continue workup of his abdominal mass for possible cancer. Patient was in agreement this plan. I councelled the patient on the importance of eating and staying hydrated. I will provide the patient with a prescription for Zofran ODT. I instructed the patient to follow up with their PCP in the next 3 days. . I explained that the patient should return to the emergency department if they experience any worsening symptoms. Strict return precautions were discussed with the patient. The patient expressed understanding of these instructions. I answered all questions that the patient had. The patient was discharged home in fair con dition with their prescriptions and follow up information. - Lab Data Result diagrams: 06/01/21 18:40 06/01/21 18:40 Lab Results 09/05/1406/01/21 06/01/21 Range/Units 18:40 18:40 18:40 WBC 11.7 H (3.8-10.6) k/uL RBC 4.95 (4.30-5.90) m/uL Hgb 15.3 (13.0-17.5) gm/dL Hct 44.4 (39.0-53.0) % MCV 89.7 (80.0-100.0) fL MCH 30.9 (25.0-35.0) pg MCHC 34.5 (31.0-37.0) g/dL RDW 13.2 (11.5-15.5) % Plt Count 480 H (150-450) k/uL MPV 8.0 Neutrophils % 81 % Lymphocytes % 10 % Monocytes % 6 % Eosinophils % 1 % Basophils % 0 % Neutrophils # 9.5 H (1.3-7.7) k/uL Lymphocytes # 1.2 (1.0-4.8) k/uL Monocytes # 0.7 (0-1.0) k/uL Eosinophils # 0.2 (0-0.7) k/uL Basophils # 0.1 (0-0.2) k/uL PT 10.8 (9.0-12.0) sec INR 1.0 (<1.2) APTT 25.7 (22.0-30.0) sec D-Dimer 7.63 H (<0.60) mg/L FEU Sodium (137-145) mmol/L Potassium (3.5-5.1) mmol/L Chloride (98-107) mmol/L Carbon Dioxide (22-30) mmol/L Anion Gap mmol/L BUN (9-20) mg/dL Creatinine (0.66-1.25) mg/dL Est GFR (CKD-EPI)AfAm (>60 ml/min/1.73 sqM) Est GFR (CKD-EPI)NonAf (>60 ml/min/1.73 sqM) Glucose (74-99) mg/dL Plasma Lactic Acid Leandro (0.7-2.0) mmol/L Calcium (8.4-10.2) mg/dL Total Bilirubin (0.2-1.3) mg/dL AST (17-59) U/L ALT (4-49) U/L Alkaline Phosphatase (38-126) U/L Troponin I (0.000-0.034) ng/mL Total Protein (6.3-8.2) g/dL Albumin (3.5-5.0) g/dL Amylase (30-110) U/L Lipase (23-300) U/L Urine Color Yellow Urine Appearance Clear (Clear) Urine pH 6.0 (5.0-8.0) Ur Specific Letcher 1.021 (1.001-1.035) Urine Protein 1+ H (Negative) Urine Glucose (UA) Negative (Negative) Urine Ketones 2+ H (Negative) Urine Blood Negative (Negative) Urine Nitrite Negative (Negative) Urine Bilirubin 1+ H (Negative) Urine Urobilinogen 2.0 (<2.0) mg/dL Ur Leukocyte Esterase Negative (Negative) Urine RBC 1 (0-5) /hpf Urine WBC 3 (0-5) /hpf Ur Squamous Epith Cells <1 (0-4) /hpf Hyaline Casts 11 H (0-2) /lpf Urine Mucus Many H (None) /hpf 06/01/21 06/01/21 06/01/21 Range/Units 18:40 18:40 18:40 WBC (3.8-10.6) k/uL RBC (4.30-5.90) m/uL Hgb (13.0-17.5) gm/dL Hct (39.0-53.0) % MCV (80.0-100.0) fL MCH (25.0-35.0) pg MCHC (31.0-37.0) g/dL RDW (11.5-15.5) % Plt Count (150-450) k/uL MPV Neutrophils % % Lymphocytes % % Monocytes % % Eosinophils % % Basophils % % Neutrophils # (1.3-7.7) k/uL Lymphocytes # (1.0-4.8) k/uL Monocytes # (0-1.0) k/uL Eosinophils # (0-0.7) k/uL Basophils # (0-0.2) k/uL PT (9.0-12.0) sec INR (<1.2) APTT (22.0-30.0) sec D-Dimer (<0.60) mg/L FEU Sodium 132 L (137-145) mmol/L Potassium 4.7 (3.5-5.1) mmol/L Chloride 95 L (98-107) mmol/L Carbon Dioxide 23 (22-30) mmol/L Anion Gap 14 mmol/L BUN 15 (9-20) mg/dL Creatinine 1.03 (0.66-1.25) mg/dL Est GFR (CKD-EPI)AfAm 86 (>60 ml/min/1.73 sqM) Est GFR (CKD-EPI)NonAf 75 (>60 ml/min/1.73 sqM) Glucose 128 H (74-99) mg/dL Plasma Lactic Acid Leandro 1.6 (0.7-2.0) mmol/L Calcium 9.6 (8.4-10.2) mg/dL Total Bilirubin 0.6 (0.2-1.3) mg/dL AST 18 (17-59) U/L ALT 8 (4-49) U/L Alkaline Phosphatase 80 (38-126) U/L Troponin I <0.012 (0.000-0.034) ng/mL Total Protein 6.9 (6.3-8.2) g/dL Albumin 3.7 (3.5-5.0) g/dL Amylase 63 (30-110) U/L Lipase 187 (23-300) U/L Urine Color Urine Appearance (Clear) Urine pH (5.0-8.0) Ur Specific Letcher (1.001-1.035) Urine Protein (Negative) Urine Glucose (UA) (Negative) Urine Ketones (Negative) Urine Blood (Negative) Urine Nitrite (Negative) Urine Bilirubin (Negative) Urine Urobilinogen (<2.0) mg/dL Ur Leukocyte Esterase (Negative) Urine RBC (0-5) /hpf Urine WBC (0-5) /hpf Ur Squamous Epith Cells (0-4) /hpf Hyaline Casts (0-2) /lpf Urine Mucus (None) /hpf - EKG Data -: EKG Interpreted by Me EKG Comments: 12-lead Electrocardiogram Interpretation Note EKG was reviewed and interpreted by myself. 12-lead ECG performed at 1829 is interpreted by me as revealing sinus tachycardia with PACs at a rate of 118 vega ts per minute. [place] is normal. ND interval is 130 ms, gross duration 76 seconds, QTC is 454 ms.. There were no ST or T wave abnormalities to suggest myocardial ischemia or injury. R wave progression across the precordium was satisfactory. By my interpretation this EKG is non-diagnostic for acute ischemia. Disposition Clinical Impression: Sinus tachycardia, Elevated d-dimer, Ascitic fluid, Dehydration Disposition: HOME SELF-CARE Condition: Fair Instructions (If sedation given, give patient instructions): Ascites (ED) Prescriptions: Ondansetron Odt [Zofran Odt] 4 mg PO Q8HR PRN 2 Days #6 tab PRN Reason: Nausea Is patient prescribed a controlled substance at d/c from ED?: No Referrals: Timo Cheung MD [Primary Care Provider] - 1-2 days
[2021-06-01 19:05] LABS: Albumin 3.7 g/dL (3.5-5.0); Calcium 9.6 mg/dL (8.4-10.2); Potassium 4.7 mmol/L (3.5-5.1); Total Bilirubin 0.6 mg/dL (0.2-1.3); Total Protein 6.9 g/dL (6.3-8.2)
[2021-06-01 19:23] LABS: Partial Thromboplastin Time 25.7 sec (22.0-30.0); Prothrombin Time 10.8 sec (9.0-12.0)
[2021-06-01 19:33] VITALS: RESP 20
[2021-06-01 19:50] LABS: Appearance,Urine Clear (Clear); Bilirubin,Urine 1+ (Negative); Blood,Urine Negative (Negative); Color,Urine Yellow; Glucose,Urine (UA) Negative (Negative); Ketones,Urine 2+ (Negative); Leukocyte Esterase,Urine Negative (Negative); Nitrite,Urine Negative (Negative); Protein,Urine 1+ (Negative); Specific Gravity,Urine 1.021 (1.001-1.035)
[2021-06-01 19:51] LABS: Hyaline Casts,Urine 11 /lpf (0-2); Mucus,Urine Many /hpf; RBC,Urine 1 /hpf (0-5); Squamous Epithelial Cell,Urine <1 /hpf (0-4); WBC,Urine 3 /hpf (0-5)
[2021-06-01] MEDS ORDERED: SODIUM CHLORIDE 0.9% 1,000 ML IV ONE (20:06)
--- NOTE | 2021-06-01 21:09 | CT ---
EXAMINATION TYPE: CT chest angio for PE DATE OF EXAM: 06/01/2021 COMPARISON: CT abdomen 05/26/2021. HISTORY: elevated d-dimer CT DLP: 425.5 mGycm Automated exposure control for dose reduction was used. CONTRAST: CT Chest for pulmonary embolism performed with with IV Contrast, patient injected with 100 mL of Isov ue 370. MIPS reformats were provided and reviewed. FINDINGS: LUNGS: The lungs are grossly clear, there is no concerning parenchymal mass or nodule identified. T here is no pleural effusion or pneumothorax seen. The tracheobronchial tree is patent. MEDIASTINUM: There is satisfactory enhancement of the pulmonary artery and its branches, there is no CT evidence for pulmonary embolism. There are no greater than 1 cm hilar or mediastinal lymph nodes. No pericardial effusion is seen. OTHER: Partially imaged moderate volume abdominal ascites. Mild pneumobilia seen. IMPRESSION: Recurrent/persistent abdominal ascites. Interval mild pneumobilia. Otherwise no acute PE or cardiopulmonary abnormality.
[2021-06-01 21:18] VITALS: BP 138/97; PULSE 105; TEMP 98.1
== END 2021-06-01 21:43 | disposition home or self-care (01) ==
LOC: EC 16:27
DX: R18.8 Other ascites (principal); E86.0 Dehydration; R00.0 Tachycardia, unspecified; R79.89 Other specified abnormal findings of blood chemistry; I10 Essential (primary) hypertension; E78.5 Hyperlipidemia, unspecified; K21.9 Gastro-esophageal reflux disease without esophagitis; F12.90 Cannabis use, unspecified, uncomplicated; Z79.02 Long term (current) use of antithrombotics/antiplatelets; Z79.899 Other long term (current) drug therapy; Z82.49 Family history of ischemic heart disease and other diseases of the circulatory system; Z87.891 Personal history of nicotine dependence; Z90.49 Acquired absence of other specified parts of digestive tract
CPT/HCPCS: 36415; 93005; 85379; 80053; 82150; 83605; 83690; 84484; 85025; 85610; 85730; 81001; 71275; 96374; 96361 ×3; 99284; J2405; Q9967

== ENCOUNTER 2021-06-08 08:36 | Day surgery (SDC) | payer MEDICARE ==
[2021-06-08 09:19] LABS: Mean Platelet Volume 7.8; Platelet Count 395 k/uL (150-450)
[2021-06-08 09:20] VITALS: TEMP 97.9
[2021-06-08 09:33] LABS: Prothrombin Time 10.3 sec (9.0-12.0)
[2021-06-08] MEDS: ALBUMIN HUMAN 25% 50 ML in EMPTY BAG 1 BAG IVPB SCH ×3 (10:17→10:53)
[2021-06-08 11:06] VITALS: BP 109/58; PULSE 78; RESP 14
--- NOTE | 2021-06-08 11:54 | US ---
Ultrasound-guided paracentesis. DATE OF EXAM: 06/08/2021 CLINICAL HISTORY: Ascites The procedure was discussed with the patient. The risks, complications, benefits, and alternatives we re discussed and any questions were answered. Informed consent was obtained. The patient was placed s upine on the ultrasound table and prepped and draped in the usual sterile fashion. All elements of maximal barrier technique were utilized. Under ultrasound guidance, access into the right lower quadrant was obtained, via the paracentesis catheter system and direct ultrasound guidanc e. Approximately 5.4 liters of straw-colored fluid was removed. The patient was stable throughout the pr ocedure and remained stable upon discharge from Department of Radiology. Sample sent to pathology for analysis. IMPRESSION: Successful paracentesis under ultrasound guidance.
== END 2021-06-08 11:10 | disposition home or self-care (01) ==
LOC: RADPROMAIN 08:36
PROVIDERS: ATTEND Internal Medicine
DX: R18.8 Other ascites (principal)
CPT/HCPCS: 49083; 88108; 88305; 82565; 85049; 85610; 87070; 87205; 87075; 36415; P9047

== ENCOUNTER → 2021-06-15 | Outpatient (CLI) | payer MEDICARE ==
[2021-06-15 23:27] LABS: Basophils # (A) 0.05 X 10*3/uL (0.00-0.10); Basophils % (A) 0.6 %; Eosinophils # (A) 0.16 X 10*3/uL (0.04-0.35); Eosinophils % (A) 1.9 %; HCT 40.3 % (39.6-50.0); Lymphocytes # (A) 1.18 X 10*3/uL (0.90-5.00); Lymphocytes % (A) 13.8 %; MCH 29.1 pg (27.0-32.0); MCHC 32.3 g/dL (32.0-37.0); MCV 90.4 fL (80.0-97.0); Monocytes # (A) 0.59 X 10*3/uL (0.20-1.00); Monocytes % (A) 6.9 %; Neutrophils % (A) 76.3 %; Platelet Count 368 X 10*3/uL (140-440); RBC 4.46 X 10*6/uL (4.40-5.60); RDW 12.9 % (11.5-14.5); WBC 8.52 X 10*3/uL (4.50-10.00)
[2021-06-16 16:08] LABS: ALT <8 U/L (10-49); AST 14 U/L (14-35); African American GFR (CKD) 59.4 (60.0-200.0); Albumin/Globulin Ratio 1.56 (1.60-3.17); Alkaline Phosphatase 73 U/L (41-126); BUN/Creat Ratio 19.29 Ratio (12.00-20.00); Calcium 8.7 mg/dL (8.7-10.3); Carbon Dioxide 19.7 mmol/L (21.6-31.8); Chloride 101 mmol/L (96-109); Globulin 2.5 g/dL (1.6-3.3); Glucose 97 mg/dL (70-110); Non-African American GFR(CKD) 51.3 (60.0-200.0); Potassium 5.3 mmol/L (3.5-5.5); Sodium 139 mmol/L (135-145); Total Bilirubin 0.6 mg/dL (0.3-1.2); Total Protein 6.4 g/dL (6.2-8.2)
== END | disposition home or self-care (01) ==
LOC: LABWHC1 14:09
PROVIDERS: ATTEND Internal Medicine
DX: E27.8 Other specified disorders of adrenal gland (principal)
CPT/HCPCS: 36415; 80053; 82533; 85025

== ENCOUNTER → 2021-07-01 | Outpatient (CLI) | payer MEDICARE ==
--- NOTE | 2021-07-05 10:07 | PE ---
Nuclear medicine PET/CT HISTORY: E 27.8 Patient received 10.3 mCi F-18 FDG intravenously in delayed scanning was performed from the skull bas e to the mid thighs. Localization and attenuation correction CT scan was performed. Correlation CT abdomen pelvis 05/26/2021 Chest and neck: There is no supraclavicular or cervical adenopathy. There is a left pleural effusion greater than right. No pericardial effusion. No mediastinal, axillar, or hilar adenopathy. There are coronary artery calcifications. There is no suspicious uptake. No evident lung mass. Along the analysis intern al mammary vasculature on the left at the level of the [place] there is a small focus of uptake, SUV i s only one. ABDOMEN: Low dense right adrenal mass likely represents adenoma. There is ascites present, the perito waldo surface shows some mild diffuse uptake, SUV approximately 1-2.2. There is some increased attenua tion present within the mesenteric fat which may be due to fluid, local uptake, axial images #174 may be due to bowel uptake, physiologic change rather than abnormal mesenteric soft tissue, SUV 3.9-4.7 however along the region of the transverse colon. Fluid is loculated along the anterior and upper abd omen. Prostate calcifications are present. There is no pelvic adenopathy. No evident retroperitoneal adenopathy. No evident liver mass. IMPRESSION: Consider paracentesis with cytology analysis to exclude underlying mesenteric masses, fin dings suggest omental caking. Right adrenal lesion likely represents adenoma which could be confirmed with MRI.
== END | disposition home or self-care (01) ==
LOC: RADPETMAIN 12:42
PROVIDERS: ATTEND Internal Medicine
DX: E27.8 Other specified disorders of adrenal gland (principal); R18.8 Other ascites
CPT/HCPCS: 78815; A9552

== ENCOUNTER 2021-07-07 16:08 | Inpatient (IN) | payer MEDICARE ==
[2021-07-07] MEDS ORDERED: SODIUM CHLORIDE 0.9% 1,000 ML IV STA (18:35)
[2021-07-07 18:59] LABS: Basophils % (A) 0 %; Eosinophils % (A) 0 %; HCT 39.4 % (39.0-53.0); HGB 13.1 gm/dL (13.0-17.5); Lymphocytes # (A) 1.1 k/uL (1.0-4.8); Lymphocytes % (A) 13 %; MCH 30.3 pg (25.0-35.0); MCHC 33.2 g/dL (31.0-37.0); Mean Platelet Volume 7.8; Monocytes # (A) 0.5 k/uL (0-1.0); Monocytes % (A) 6 %; Neutrophils # (A) 6.7 k/uL (1.3-7.7); Neutrophils % (A) 79 %; Platelet Count 257 k/uL (150-450); RBC 4.33 m/uL (4.30-5.90); RDW 14.8 % (11.5-15.5); WBC 8.4 k/uL (3.8-10.6)
[2021-07-07 19:07] LABS: Partial Thromboplastin Time 24.3 sec (22.0-30.0); Prothrombin Time 10.7 sec (9.0-12.0)
[2021-07-07 19:09] LABS: Albumin 2.9 g/dL (3.5-5.0); Calcium 8.8 mg/dL (8.4-10.2); Magnesium 1.8 mg/dL (1.6-2.3); Phosphorus 3.8 mg/dL (2.5-4.5); Potassium 3.9 mmol/L (3.5-5.1); Total Bilirubin 1.1 mg/dL (0.2-1.3); Total Protein 5.8 g/dL (6.3-8.2)
--- NOTE | 2021-07-07 19:17 | ED ---
Weakness HPI - General Chief complaint: Weakness Stated complaint: Fatigue/Congestion Time Seen by Provider: 07/07/21 18:11 Source: patient Mode of arrival: wheelchair Limitations: no limitations - History of Present Illness Initial comments: 70-year-old male with recently diagnosed stomach cancer with metastasis who presents emergency room with generalized weakness. Patient states that for the past couple of days he has had a cough, congestion, shortness of breath with poor oral intake. States that due to his diagnosis of stomach cancer that he cortez s unable to eat or drink much. He denies any fevers. Upon presentation in triage the patient does have a low-grade fever. He denies any sick contacts with similar symptoms. Does admit to wheezing in his chest. Patient is Covid vaccinated. Admits nausea without vomiting. No abdominal pain. Patient admits to abdominal distention secondary to ascites. Has had 3 paracenteses. 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 Denies any chest pain. He sees Dr. Velazquez on Sunday to establish care with oncology. Is not currently on any treatment at this time. No other alleviating, precipitating or modifying factors - Related Data Home Medications Medication Instructions Recorded Confirmed lisinopriL [Zestril] 5 mg PO DAILY 07/07/21 07/07/21 Previous Rx's Medication Instructions Recorded Atorvastatin [Lipitor] 80 mg PO HS #90 tab 03/18/19 Clopidogrel [Plavix] 75 mg PO DAILY #90 tab 03/18/19 carvediloL [Coreg] 3.125 mg PO BID-W/MEALS #180 tab 03/18/19 Allergies Allergy/AdvReac Type Severity Reaction Status Date / Time No Known Allergies Allergy Verified 07/07/21 18:55 Review of Systems ROS Statement: Those systems with pertinent positive or pertinent negative responses have been documented in the HPI. ROS Other: All systems not noted in ROS Statement are negative. Past Medical History Past Medical History: GERD/Reflux, Hyperlipidemia, Hypertension Additional Past Medical History / Comment(s): Severe B12 deficiency, allergic rhinitis History of Any Multi-Drug Resistant Organisms: None Reported Past Surgical History: Cholecystectomy Past Anesthesia/Blood Transfusion Reactions: No Reported Reaction Past Psychological History: No Psychological Hx Reported Smoking Status: Former smoker Past Alcohol Use History: Occasional Past Drug Use History: Marijuana - Past Family History Father Family Medical History: Congestive Heart Failure (CHF) Additional Family Medical History / Comment(s): Father at the age of 82 yrs from CHF. Mother Family Medical History: No Reported History Additional Family Medical History / Comment(s): Mother was healthy, not on any medications and lived to be 92 yrs old. General Exam Limitations: no limitations Course Vital Signs 07/07/21 07/07/21 07/07/21 17:08 18:23 18:48 Temperature 100.1 F H Pulse Rate 115 H Respiratory 19 41 H 18 Rate Blood Pressure 124/85 O2 Sat by Pulse 96 Oximetry 07/07/21 07/07/21 07/08/21 22:00 23:00 00:00 Temperature 97.0 F L Pulse Rate 100 100 94 Respiratory 20 18 17 Rate Blood Pressure 121/88 121/88 122/96 O2 Sat by Pulse 90 L 94 L 94 L Oximetry EKG Findings - EKG Comments: EKG Findings:: EKG demonstrates sinus tachycardia with a ventricular rate of 113. WI interval 128. QRS 80. QTC of 444. Some ST depression in 2, 3 and aVF as well as V3 through V6. Medical Decision Making - Medical Decision Making Vital patient is placed into room 23. A thorough history and physical exam is performed. IV is established and the patient is given IV fluids due to his tachycardia. Laboratory studies are conducted. Sodium mildly low at 134. Urinalysis demonstrates 2+ ketones. Covid is negative. Chest x-ray does demonstrate bilateral pleural effusions with compressive atelectasis. As the patient is reporting cough and has a low-grade fever he is given a dose of antibiotics. Blood cultures were obtained. I did recommend admission for which the patient did agree to. Heart rate has improved with the fluid administration. I called and spoke with Dr. Bajwa who agreed to admit the patient. Dr. nowak will be placed on consult. Patient remained in stable condition awaiting a bed on the floor - Lab Data Result diagrams: 07/07/21 18:48 07/07/21 18:48 Lab Results 07/07/21 07/07/21 07/07/21 Range/Units 18:48 18:48 18:48 WBC 8.4 (3.8-10.6) k/uL RBC 4.33 (4.30-5.90) m/uL Hgb 13.1 (13.0-17.5) gm/dL Hct 39.4 (39.0-53.0) % MCV 91.0 (80.0-100.0) fL MCH 30.3 (25.0-35.0) pg MCHC 33.2 (31.0-37.0) g/dL RDW 14.8 (11.5-15.5) % Plt Count 257 (150-450) k/uL MPV 7.8 Neutrophils % 79 % Lymphocytes % 13 % Monocytes % 6 % Eosinophils % 0 % Basophils % 0 % Neutrophils # 6.7 (1.3-7.7) k/uL Lymphocytes # 1.1 (1.0-4.8) k/uL Monocytes # 0.5 (0-1.0) k/uL Eosinophils # 0.0 (0-0.7) k/uL Basophils # 0.0 (0-0.2) k/uL PT 10.7 (9.0-12.0) sec INR 1.0 (<1.2) APTT 24.3 (22.0-30.0) sec Sodium 134 L (137-145) mmol/L Potassium 3.9 (3.5-5.1) mmol/L Chloride 100 (98-107) mmol/L Carbon Dioxide 24 (22-30) mmol/L Anion Gap 10 mmol/L BUN 21 H (9-20) mg/dL Creatinine 1.06 (0.66-1.25) mg/dL Est GFR (CKD-EPI)AfAm 84 (>60 ml/min/1.73 sqM) Est GFR (CKD-EPI)NonAf 72 (>60 ml/min/1.73 sqM) Glucose 123 H (74-99) mg/dL Plasma Lactic Acid Leandro (0.7-2.0) mmol/L Calcium 8.8 (8.4-10.2) mg/dL Phosphorus 3.8 (2.5-4.5) mg/dL Magnesium 1.8 (1.6-2.3) mg/dL Total Bilirubin 1.1 (0.2-1.3) mg/dL AST 21 (17-59) U/L ALT 13 (4-49) U/L Alkaline Phosphatase 166 H (38-126) U/L Troponin I (0.000-0.034) ng/mL NT-Pro-B Natriuret Pep pg/mL Total Protein 5.8 L (6.3-8.2) g/dL Albumin 2.9 L (3.5-5.0) g/dL Urine Color Urine Appearance (Clear) Urine pH (5.0-8.0) Ur Specific [place] (1.001-1.035) Urine Protein (Negative) Urine Glucose (UA) (Negative) Urine Ketones (Negative) Urine Blood (Negative) Urine Nitrite (Negative) Urine Bilirubin (Negative) Urine Urobilinogen (<2.0) mg/dL Ur Leukocyte Esterase (Negative) Urine RBC (0-5) /hpf Urine WBC (0-5) /hpf Ur Squamous Epith Cells (0-4) /hpf Calcium Oxalate Crystal (None) /hpf Hyaline Casts (0-2) /lpf Urine Mucus (None) /hpf Coronavirus (PCR) (Not Detectd) 07/07/21 07/07/21 07/07/21 Range/Units 18:48 18:48 18:48 WBC (3.8-10.6) k/uL RBC (4.30-5.90) m/uL Hgb (13.0-17.5) gm/dL Hct (39.0-53.0) % MCV (80.0-100.0) fL MCH (25.0-35.0) pg MCHC (31.0-37.0) g/dL RDW (11.5-15.5) % Plt Count (150-450) k/uL MPV Neutrophils % % Lymphocytes % % Monocytes % % Eosinophils % % Basophils % % Neutrophils # (1.3-7.7) k/uL Lymphocytes # (1.0-4.8) k/uL Monocytes # (0-1.0) k/uL Eosinophils # (0-0.7) k/uL Basophils # (0-0.2) k/uL PT (9.0-12.0) sec INR (<1.2) APTT (22.0-30.0) sec Sodium (137-145) mmol/L Potassium (3.5-5.1) mmol/L Chloride (98-107) mmol/L Carbon Dioxide (22-30) mmol/L Anion Gap mmol/L BUN (9-20) mg/dL Creatinine (0.66-1.25) mg/dL Est GFR (CKD-EPI)AfAm (>60 ml/min/1.73 sqM) Est GFR (CKD-EPI)NonAf (>60 ml/min/1.73 sqM) Glucose (74-99) mg/dL Plasma Lactic Acid Leandro 1.6 (0.7-2.0) mmol/L Calcium (8.4-10.2) mg/dL Phosphorus (2.5-4.5) mg/dL Magnesium (1.6-2.3) mg/dL Total Bilirubin (0.2-1.3) mg/dL AST (17-59) U/L ALT (4-49) U/L Alkaline Phosphatase (38-126) U/L Troponin I <0.012 (0.000-0.034) ng/mL NT-Pro-B Natriuret Pep 424 pg/mL Total Protein (6.3-8.2) g/dL Albumin (3.5-5.0) g/dL Urine Color Urine Appearance (Clear) Urine pH (5.0-8.0) Ur Specific [place] (1.001-1.035) Urine Protein (Negative) Urine Glucose (UA) (Negative) Urine Ketones (Negative) Urine Blood (Negative) Urine Nitrite (Negative) Urine Bilirubin (Negative) Urine Urobilinogen (<2.0) mg/dL Ur Leukocyte Esterase (Negative) Urine RBC (0-5) /hpf Urine WBC (0-5) /hpf Ur Squamous Epith Cells (0-4) /hpf Calcium Oxalate Crystal (None) /hpf Hyaline Casts (0-2) /lpf Urine Mucus (None) /hpf Coronavirus (PCR) (Not Detectd) 07/07/21 07/07/21 Range/Units 18:48 20:32 WBC (3.8-10.6) k/uL RBC (4.30-5.90) m/uL Hgb (13.0-17.5) gm/dL Hct (39.0-53.0) % MCV (80.0-100.0) fL MCH (25.0-35.0) pg MCHC (31.0-37.0) g/dL RDW (11.5-15.5) % Plt Count (150-450) k/uL MPV Neutrophils % % Lymphocytes % % Monocytes % % Eosinophils % % Basophils % % Neutrophils # (1.3-7.7) k/uL Lymphocytes # (1.0-4.8) k/uL Monocytes # (0-1.0) k/uL Eosinophils # (0-0.7) k/uL Basophils # (0-0.2) k/uL PT (9.0-12.0) sec INR (<1.2) APTT (22.0-30.0) sec Sodium (137-145) mmol/L Potassium (3.5-5.1) mmol/L Chloride (98-107) mmol/L Carbon Dioxide (22-30) mmol/L Anion Gap mmol/L BUN (9-20) mg/dL Creatinine (0.66-1.25) mg/dL Est GFR (CKD-EPI)AfAm (>60 ml/min/1.73 sqM) Est GFR (CKD-EPI)NonAf (>60 ml/min/1.73 sqM) Glucose (74-99) mg/dL Plasma Lactic Acid Leandro (0.7-2.0) mmol/L Calcium (8.4-10.2) mg/dL Phosphorus (2.5-4.5) mg/dL Magnesium (1.6-2.3) mg/dL Total Bilirubin (0.2-1.3) mg/dL AST (17-59) U/L ALT (4-49) U/L Alkaline Phosphatase (38-126) U/L Troponin I (0.000-0.034) ng/mL NT-Pro-B Natriuret Pep pg/mL Total Protein (6.3-8.2) g/dL Albumin (3.5-5.0) g/dL Urine Color Dark Yellow Urine Appearance Cloudy (Clear) Urine pH 6.0 (5.0-8.0) Ur Specific [place] 1.037 H (1.001-1.035) Urine Protein 1+ H (Negative) Urine Glucose (UA) Negative (Negative) Urine Ketones 2+ H (Negative) Urine Blood Negative (Negative) Urine Nitrite Negative (Negative) Urine Bilirubin 1+ H (Negative) Urine Urobilinogen 6.0 (<2.0) mg/dL Ur Leukocyte Esterase Negative (Negative) Urine RBC 5 (0-5) /hpf Urine WBC 3 (0-5) /hpf Ur Squamous Epith Cells <1 (0-4) /hpf Calcium Oxalate Crystal Rare H (None) /hpf Hyaline Casts 7 H (0-2) /lpf Urine Mucus Many H (None) /hpf Coronavirus (PCR) Not Detected (Not Detectd) Disposition Clinical Impression: Stomach cancer, Tachycardia, Dehydration, Cough Disposition: ADMITTED IP TO THIS [facility] Condition: Stable Is patient prescribed a controlled substance at d/c from ED?: No Decision to Admit Reason: Admit from EC Decision Date: 07/07/21 Decision Time: 21:27
--- NOTE | 2021-07-07 19:45 | XR ---
EXAMINATION TYPE: XR chest 2V DATE OF EXAM: 07/07/2021 COMPARISON: CT chest 06/01/2021 HISTORY: Weakness. TECHNIQUE: Frontal and lateral views of the chest are obtained. FINDINGS: The cardiomediastinal silhouette and pulmonary vasculature are within normal limits. Blunting of the bilateral costophrenic angles. Strandy opacities at the lung bases. No consolidation or pneumothorax. The osseous structures are intact. IMPRESSION: Small bilateral effusions with adjacent atelectasis/airspace disease.
[2021-07-07 20:48] LABS: Appearance,Urine Cloudy (Clear); Bilirubin,Urine 1+ (Negative); Blood,Urine Negative (Negative); Calcium Oxalate Crystals,Urine Rare /hpf; Color,Urine Dark Yellow; Glucose,Urine (UA) Negative (Negative); Hyaline Casts,Urine 7 /lpf (0-2); Ketones,Urine 2+ (Negative); Leukocyte Esterase,Urine Negative (Negative); Mucus,Urine Many /hpf; Nitrite,Urine Negative (Negative); Protein,Urine 1+ (Negative); RBC,Urine 5 /hpf (0-5); Specific Gravity,Urine 1.037 (1.001-1.035); Squamous Epithelial Cell,Urine <1 /hpf (0-4); WBC,Urine 3 /hpf (0-5)
[2021-07-07] MEDS ORDERED: ACETAMINOPHEN TAB 500 MG TAB PO STA (20:51)
[2021-07-07] MEDS ORDERED: cefTRIAXone IN SWFI 1,000 MG/10 ML SYRINGE IVP STA (21:22)
[2021-07-07] MEDS ORDERED: NALOXONE 0.4 MG/ML 1 ML VIAL IV PRN (21:27)
[2021-07-07] MEDS ORDERED: AZITHROMYCIN 500 MG in SODIUM CHLORIDE 0.9% 250 ML IVPB ONE (21:30)
[2021-07-07] MEDS ORDERED: IBUPROFEN 400 MG TAB PO PRN (21:32)
[2021-07-07] MEDS ORDERED: ACETAMINOPHEN TAB 325 MG TAB PO PRN (21:32)
[2021-07-07] MEDS ORDERED: ONDANSETRON 4 MG/2 ML VIAL IVP PRN (21:32)
[2021-07-07] MEDS: SODIUM CHLORIDE 0.9% 1,000 ML IV SCH (22:16)
[2021-07-08 07:03] LABS: Basophils % (A) 0 %; Eosinophils % (A) 1 %; HCT 32.9 % (39.0-53.0); HGB 10.9 gm/dL (13.0-17.5); Lymphocytes # (A) 0.9 k/uL (1.0-4.8); Lymphocytes % (A) 15 %; MCH 30.6 pg (25.0-35.0); MCHC 33.1 g/dL (31.0-37.0); MCV 92.4 fL (80.0-100.0); Mean Platelet Volume 7.9; Monocytes # (A) 0.4 k/uL (0-1.0); Monocytes % (A) 6 %; Neutrophils # (A) 4.5 k/uL (1.3-7.7); Neutrophils % (A) 76 %; Platelet Count 233 k/uL (150-450); RBC 3.56 m/uL (4.30-5.90); RDW 14.9 % (11.5-15.5); WBC 5.9 k/uL (3.8-10.6)
[2021-07-08 07:32] LABS: Calcium 8.2 mg/dL (8.4-10.2); Potassium 4.4 mmol/L (3.5-5.1)
[2021-07-08] MEDS: CLOPIDOGREL 75 MG TAB PO SCH (08:49)
[2021-07-08] MEDS: carvediloL 3.125 MG TAB PO SCH ×2 (08:49→16:57)
[2021-07-08] MEDS: lisinopriL 5 MG TAB PO SCH (08:49)
[2021-07-08] MEDS: SODIUM CHLORIDE 0.9% 1,000 ML IV SCH (11:27)
[2021-07-08 11:45] VITALS: BMI 22.1
--- NOTE | 2021-07-08 13:48 | P.PN ---
Subjective Progress Note Date: 07/08/21 Hospital course: Patient is a 70-year-old male with a past medical history of hypertension, hyperlipidemia, GERD, and recently diagnosed stomach cancer with metastasis. Patient reports since diagnosis of his stomach cancer he has developed abdominal ascites requiring paracentesis with last paracentesis being approximately one month ago. Patient states that over the past few days he began experiencing the same symptoms he had prior to his last paracentesis including weakness, fatigue, cough, shortness of breath with exertion, and very poor appetite due to constant feeling of fullness from abdominal distention. Patient is not currently undergoing treatment for his cancer, as he has scheduled an appointment with Dr. Velazquez on 07/12/21 to establish care and discuss possible treatment options. Patient was evaluated in the emergency departmentand admitted under our services with consult to hematology/oncologist Dr. Velazquez. an EKG was completed revealing sinus tachycardia at 113 bpmwith T-wave inversion in leads II, V3, V4, V5, and V6. Chest x-ray revealing small bilateral pleural effusions. Physical exam: Patient seen and fully evaluated at the bedside this morning. He reports feeling slightly better this morning. Morning labs reviewed revealing normocytic normochromic anemia with hemoglobin of 10.9. Chest x-rays revealing small bilateral pleural effusions. Patient reports continued abdominal fullness /distention and shortness of breath with exertion. Awaiting hematology/oncology to evaluate and further recommendations. Vital signs reviewed and stable. General: Nontoxic, no distress and appears stated age. Derm: Skin warm and dry, normal coloration for ethnicity. Head: Atraumatic, normocephalic and symmetric. Eyes: EOMs intact, no lid lag, and anicteric sclera Mouth: no lip lesions, mucus membranes moist Cardiovascular: regular rate and rhythm with normal S1S2, no murmur, positive posterior tibial pulses bilaterally, and cap refill < 2 seconds. Lungs: Respirations even, regular, and unlabored on room air. Lungs CTA bilaterally, no rhonchi, no rales, no wheezing, and no accessory muscle usage. Abdominal: taut, distended, nontender to palpation, no guarding, no appreciable organomegaly Ext: ROM intact. No gross muscle atrophy, no edema, no contractures Neuro: Speech clear, face symmetrical and CN II-XII grossly intact with no noted focal neuro deficits Psych: Alert and oriented to person, place, time, and situation. Appropriate and pleasant affect. Assessment and Plan of Care: CODE STATUS:[] DVT prophylaxis: [] Discussed with: [] Anticipated discharge date: [] Anticipated discharge place: [] A total of [] minutes was spent on the care of this complex patient more than 50% of the time was spent in counseling and care coordination. Objective - Vital Signs Vital signs: Vital Signs Temp 98.3 F 07/08/21 08:00 Pulse 80 07/08/21 08:00 Resp 16 07/08/21 08:00 BP 122/81 07/08/21 08:00 Pulse Ox 99 07/08/21 08:00 Intake & Output 07/07/21 07/08/21 07/08/21 18:59 06:59 18:59 Intake Total 100 Balance 100 Weight 82.554 kg 82.554 kg 82.554 kg Intake: Oral 100 Other: Voiding Method Toilet - Labs CBC & Chem 7: 07/08/21 05:38 07/08/21 05:49 Labs: Abnormal Lab Results - Last 24 Hours (Table) 07/07/21 07/07/21 07/08/21 Range/Units 18:48 20:32 05:38 RBC 3.56 L (4.30-5.90) m/uL Hgb 10.9 L (13.0-17.5) gm/dL Hct 32.9 L (39.0-53.0) % Lymphocytes # 0.9 L (1.0-4.8) k/uL Sodium 134 L (137-145) mmol/L BUN 21 H (9-20) mg/dL Glucose 123 H (74-99) mg/dL Calcium (8.4-10.2) mg/dL Alkaline Phosphatase 166 H (38-126) U/L Total Protein 5.8 L (6.3-8.2) g/dL Albumin 2.9 L (3.5-5.0) g/dL Ur Specific [place] 1.037 H (1.001-1.035) Urine Protein 1+ H (Negative) Urine Ketones 2+ H (Negative) Urine Bilirubin 1+ H (Negative) Calcium Oxalate Crystal Rare H (None) /hpf Hyaline Casts 7 H (0-2) /lpf Urine Mucus Many H (None) /hpf 07/08/21 Range/Units 05:49 RBC (4.30-5.90) m/uL Hgb (13.0-17.5) gm/dL Hct (39.0-53.0) % Lymphocytes # (1.0-4.8) k/uL Sodium 135 L (137-145) mmol/L BUN 22 H (9-20) mg/dL Glucose 102 H (74-99) mg/dL Calcium 8.2 L (8.4-10.2) mg/dL Alkaline Phosphatase (38-126) U/L Total Protein (6.3-8.2) g/dL Albumin (3.5-5.0) g/dL Ur Specific [place] (1.001-1.035) Urine Protein (Negative) Urine Ketones (Negative) Urine Bilirubin (Negative) Calcium Oxalate Crystal (None) /hpf Hyaline Casts (0-2) /lpf Urine Mucus (None) /hpf
--- NOTE | 2021-07-08 15:12 | P.HPIM ---
<Alcon Becerra - Last Filed: 07/08/21 14:04> History of Present Illness H&P Date: 07/08/21 Chief Complaint: fever, fatique, SOB, cough History of Presenting Illness: Patient is a 70-year-old male with a past medical history of hypertension, hyperlipidemia, GERD, and recently diagnosed stomach cancer with metastasis. Patient reports since diagnosis of his stomach cancer he has developed abdominal ascites requiring paracentesis with last paracentesis being approximately one month ago. Patient states that over the past few days he began experiencing the same symptoms he had prior to his last paracentesis including weakness, fatigue, cough, shortness of breath, dyspnea with exertion with exertion, and very poor appetite due to constant feeling of fullness from abdominal distention. Patient is not currently undergoing treatment for his cancer, as he has scheduled an appointment with Dr. Velazquez on 07/12/21 to establish care and discuss possible treatment options. Patient was evaluated in the emergency department. He was initially tachycardic with heart rate as high as 115, low-grade temp of 100.1, and tachypneic with respiratory rate of 41. An EKG was completed revealing sinus tachycardia at 113 bpm with T-wave inversion in leads II, aVF, V3, V4, V5, and V6 unchanged from previous EKG completed 06/01/21. Chest x-ray revealing small bilateral pleural effusions. Urinalysis negative for infection. Patient seen and fully evaluated at the bedside this morning. He reports feeling slightly better this morning. Morning labs reviewed revealing normocytic normochromic anemia with hemoglobin of 10.9. Patient reports continued abdominal ful lness/distention and shortness of breath with exertion. Denies headache, lightheadedness, dizziness, chest pain, palpitations, or experiencing any numbness/tingling/weakness in his extremities. .Patient is admitted under our services with consult to hematology/oncologist Dr. Velazquez. Review of systems: Pertinent positives and negatives as discussed in HPI, a complete review of systems was performed and all other systems are negative. Physical exam: Vital signs reviewed and stable. General: Nontoxic, no distress and appears stated age. Derm: Skin warm and dry, normal coloration for ethnicity. Head: Atraumatic, normocephalic and symmetric. Eyes: EOMs intact, no lid lag, and anicteric sclera Mouth: no lip lesions, mucus membranes moist Cardiovascular: regular rate and rhythm with normal S1S2, no murmur, positive posterior tibial pulses bilaterally, and cap refill < 2 seconds. Lungs: Respirations even, regular, and unlabored on 2 L O2 via nasal cannula.. Left lower lobe crackles, lungs otherwise clear to auscultation. No accessory muscle use. Abdominal: taut, distended, nontender to palpation, no guarding, no appreciable organomegaly Ext: ROM intact. No gross muscle atrophy, 1+ pitting bilateral lower extremity edema, no contractures Neuro: Speech clear, face symmetrical and CN II-XII grossly intact with no noted focal neuro deficits Psych: Alert and oriented to person, place, time, and situation. Appropriate and pleasant affect. Assessment and Plan of Care: Fever, Fatigue, cough, shortness of breath secondary to unclear etiology X-ray revealing bilateral pleural effusions Covid PCR negative. We will obtain a d-dimer, Pro-calcitonin, RSV PCR, and influenza A and B PCR. -Oxygenation to be administered as needed and titrated as needed to maintain SPO2 equal to or greater than 92% -Telemetry monitoring. -Incentive Spirometry -Antibiotics: Azithromycin and Rocephin pending further results -Consult to hematology/oncology, Dr. Velazquez Abdominal pain and feeling of fullness with decreased appetite in patient with recently diagnosed Stomach cancer with metastasis -Patient is not currently undergoing treatment for his cancer, as he has scheduled an appointment with Dr. Velazquez on 07/12/21 to establish care and discuss possible treatment options. -Hematology/oncology consult placed Hypertension Monitor vital signs and continue daily medication regimen with carvedilol and lisinopril. Hyperlipidemia Continue daily medication regimen with atorvastatin 80 mg nightly. GERD GI prophylaxis with Protonix 40 mg by mouth daily. The patient is admitted with an anticipated greater than 2 midnight stay for evaluation of fever, fatigue, cough, shortness of breath in cancer patient. CODE STATUS: Full code DVT prophylaxis: Heparin Discussed with: Patient and RN Anticipated discharge date: Clinical course to determine Anticipated discharge place: Home A total of 45 minutes was spent on the care of this complex patient more than 50% of the time was spent in counseling and care coordination. Past Medical History Past Medical History: CVA/TIA, GERD/Reflux, Hyperlipidemia, Hypertension Additional Past Medical History / Comment(s): Severe B12 deficiency, allergic rhinitis History of Any Multi-Drug Resistant Organisms: None Reported Past Surgical History: Cholecystectomy Past Anesthesia/Blood Transfusion Reactions: No Reported Reaction Past Psychological History: No Psychological Hx Reported Additional Psychological History / Comment(s): Pt resides with his spouse. He is independent. He is retired. Smoking Status: Former smoker Past Alcohol Use History: Occasional Additional Past Alcohol Use History / Comment(s): Pt started smoking as a teen and a pack will last 2 weeks. He states he goes thru a case of beer a week with some liqour too. Past Drug Use History: Marijuana Additional Drug Use History / Comment(s): Pt smokes marijuana on occasion. - Past Family History Father Family Medical History: Congestive Heart Failure (CHF) Additional Family Medical History / Comment(s): Father at the age of 82 yrs from CHF. Mother Family Medical History: No Reported History Additional Family Medical History / Comment(s): Mother was healthy, not on any medications and lived to be 92 yrs old. Medications and Allergies Home Medications Medication Instructions Recorded Confirmed Type Atorvastatin [Lipitor] 80 mg PO HS #90 tab 03/18/19 07/07/21 Rx Clopidogrel [Plavix] 75 mg PO DAILY #90 tab 03/18/19 07/07/21 Rx carvediloL [Coreg] 3.125 mg PO BID-W/MEALS #180 tab 03/18/19 07/07/21 Rx lisinopriL [Zestril] 5 mg PO DAILY 07/07/21 07/07/21 History Allergies Allergy/AdvReac Type Severity Reaction Status Date / Time No Known Allergies Allergy Verified 07/07/21 18:55 Physical Exam Vitals: Vital Signs Temp Pulse Pulse Resp BP BP Pulse Ox 07/08/21 08:00 98.3 F 80 16 122/81 99 07/08/21 02:00 98.3 F 78 18 131/84 98 07/08/21 01:00 92 21 127/88 98 07/08/21 00:00 94 17 122/96 94 L 07/07/21 23:00 100 18 121/88 94 L 07/07/21 22:00 97.0 F L 100 20 121/88 90 L 07/07/21 18:48 18 07/07/21 18:23 41 H 07/07/21 17:08 100.1 F H 115 H 19 124/85 96 Intake and Output 07/07/21 07/08/21 07/08/21 22:59 06:59 14:59 Intake Total 100 Balance 100 Intake: Oral 100 Other: Voiding Method Toilet Weight 82.554 kg 82.554 kg 82.554 kg Results CBC & Chem 7: 07/08/21 05:38 07/08/21 05:49 Labs: Abnormal Lab Results - Last 24 Hours (Table) 07/07/21 07/07/21 07/08/21 Range/Units 18:48 20:32 05:38 RBC 3.56 L (4.30-5.90) m/uL Hgb 10.9 L (13.0-17.5) gm/dL Hct 32.9 L (39.0-53.0) % Lymphocytes # 0.9 L (1.0-4.8) k/uL Sodium 134 L (137-145) mmol/L BUN 21 H (9-20) mg/dL Glucose 123 H (74-99) mg/dL Calcium (8.4-10.2) mg/dL Alkaline Phosphatase 166 H (38-126) U/L Total Protein 5.8 L (6.3-8.2) g/dL Albumin 2.9 L (3.5-5.0) g/dL Ur Specific [place] 1.037 H (1.001-1.035) Urine Protein 1+ H (Negative) Urine Ketones 2+ H (Negative) Urine Bilirubin 1+ H (Negative) Calcium Oxalate Crystal Rare H (None) /hpf Hyaline Casts 7 H (0-2) /lpf Urine Mucus Many H (None) /hpf 07/08/21 Range/Units 05:49 RBC (4.30-5.90) m/uL Hgb (13.0-17.5) gm/dL Hct (39.0-53.0) % Lymphocytes # (1.0-4.8) k/uL Sodium 135 L (137-145) mmol/L BUN 22 H (9-20) mg/dL Glucose 102 H (74-99) mg/dL Calcium 8.2 L (8.4-10.2) mg/dL Alkaline Phosphatase (38-126) U/L Total Protein (6.3-8.2) g/dL Albumin (3.5-5.0) g/dL Ur Specific [place] (1.001-1.035) Urine Protein (Negative) Urine Ketones (Negative) Urine Bilirubin (Negative) Calcium Oxalate Crystal (None) /hpf Hyaline Casts (0-2) /lpf Urine Mucus (None) /hpf Thrombosis Risk Factor Assmnt - Choose All That Apply Each Factor Represents 1 point: Sepsis (< 1month) Each Risk Factor Represents 2 Points: Age 61-74 years Thrombosis Risk Factor Assessment Total Risk Factor Score: 3 Thrombosis Risk Factor Assessment Level: Moderate Risk <Fallon Bajwa - Last Filed: 07/08/21 22:36> History of Present Illness Patient seen and examined independently. Patient was also seen by Alcon Becerra NP and case was discussed. I am in agreement with subjective, physical exam, assessment and plan as written above and amended below. General: Constitutional: No acute distress, conversant, pleasant Eyes: Anicteric sclerae, moist conjunctiva, Pupils equal round reactive to light Lungs: decrease breath sounds at lung bases bilaterally Normal respiratory effort, no accessory muscle use Cardiovascular: Heart regular in rate and rhythm, No murmurs, gallops, or rubs No peripheral edema Abdominal: distended abd, non tender recent diagnosis of possible metastatic cancer of the stomach, s/p abd paracenthesis about 4 weeks ago check abd US , reassess fluid accumulation , patient might possibly require another paracenthesis oncology evaluation SOB, and productive cough, CXR showed bialteral small effusion with atelactesis vs airspace disease, possibly due to distended abd, pneumonia could not be ruled out , patient started on antibiotics follow up cultures COVID negative Physical Exam Vitals: Vital Signs Temp Pulse Pulse Resp BP BP Pulse Ox 07/08/21 14:00 97.9 F 67 15 119/76 97 07/08/21 08:00 98.3 F 80 16 122/81 99 07/08/21 02:00 98.3 F 78 18 131/84 98 07/08/21 01:00 92 21 127/88 98 07/08/21 00:00 94 17 122/96 94 L 07/07/21 23:00 100 18 121/88 94 L Intake and Output 07/08/21 07/08/21 07/08/21 06:59 14:59 22:59 Intake Total 100 Balance 100 Intake: Oral 100 Other: Voiding Method Toilet # Voids 3 Weight 82.554 kg 82.554 kg Results CBC & Chem 7: 07/08/21 05:38 07/08/21 05:49 Labs: Abnormal Lab Results - Last 24 Hours (Table) 07/08/21 07/08/21 07/08/21 Range/Units 05:38 05:49 14:55 RBC 3.56 L (4.30-5.90) m/uL Hgb 10.9 L (13.0-17.5) gm/dL Hct 32.9 L (39.0-53.0) % Lymphocytes # 0.9 L (1.0-4.8) k/uL D-Dimer 5.51 H (<0.60) mg/L FEU Sodium 135 L (137-145) mmol/L BUN 22 H (9-20) mg/dL Glucose 102 H (74-99) mg/dL Calcium 8.2 L (8.4-10.2) mg/dL
[2021-07-08] MEDS: HEPARIN SODIUM,PORCINE/PF 5,000 UNIT/0.5 ML SYRINGE SQ SCH (16:57)
--- NOTE | 2021-07-08 20:20 | P.CONS ---
History of Present Illness - Reason for Consult Consult date: 07/08/21 metastatic Cancer Requesting physician: Malorie Healy - History of Present Illness Mr. Lundberg is a 70 year old male patient apparently recently diagnosed with metastatic Gastric Cancer, Pathology is not reported here. He was apparently diagnosed at outside hospital with stage 4 gastric cancer and was scheduled to see Dr. Velazquez in office next week. He has had recurrent ascites prompting paracentesis. PET scan revealed possible metastatic disease to omentum. He now presents with ascite and abdominal pain. Review of Systems All systems: negative Constitutional: Reports as per HPI Past Medical History Past Medical History: CVA/TIA, GERD/Reflux, Hyperlipidemia, Hypertension Additional Past Medical History / Comment(s): Severe B12 deficiency, allergic rhinitis History of Any Multi-Drug Resistant Organisms: None Reported Past Surgical History: Cholecystectomy Past Anesthesia/Blood Transfusion Reactions: No Reported Reaction Past Psychological History: No Psychological Hx Reported Additional Psychological History / Comment(s): Pt resides with his spouse. He is independent. He is retired. Smoking Status: Former smoker Past Alcohol Use History: Occasional Additional Past Alcohol Use History / Comment(s): Pt started smoking as a teen and a pack will last 2 weeks. He states he goes thru a case of beer a week with some liqour too. Past Drug Use History: Marijuana Additional Drug Use History / Comment(s): Pt smokes marijuana on occasion. - Past Family History Father Family Medical History: Congestive Heart Failure (CHF) Additional Family Medical History / Comment(s): Father at the age of 82 yrs from CHF. Mother Family Medical History: No Reported History Additional Family Medical History / Comment(s): Mother was healthy, not on any medications and lived to be 92 yrs old. Medications and Allergies Home Medications Medication Instructions Recorded Confirmed Type Atorvastatin [Lipitor] 80 mg PO HS #90 tab 03/18/19 07/07/21 Rx Clopidogrel [Plavix] 75 mg PO DAILY #90 tab 03/18/19 07/07/21 Rx carvediloL [Coreg] 3.125 mg PO BID-W/MEALS #180 tab 03/18/19 07/07/21 Rx lisinopriL [Zestril] 5 mg PO DAILY 07/07/21 07/07/21 History Allergies Allergy/AdvReac Type Severity Reaction Status Date / Time No Known Allergies Allergy Verified 07/07/21 18:55 Physical Exam Vitals: Vital Signs Temp Pulse Pulse Resp BP BP Pulse Ox 07/08/21 14:00 97.9 F 67 15 119/76 97 07/08/21 08:00 98.3 F 80 16 122/81 99 07/08/21 02:00 98.3 F 78 18 131/84 98 07/08/21 01:00 92 21 127/88 98 07/08/21 00:00 94 17 122/96 94 L 07/07/21 23:00 100 18 121/88 94 L 07/07/21 22:00 97.0 F L 100 20 121/88 90 L 07/07/21 18:48 18 07/07/21 18:23 41 H 07/07/21 17:08 100.1 F H 115 H 19 124/85 96 Intake and Output 07/08/21 07/08/21 07/08/21 06:59 14:59 22:59 Intake Total 100 Balance 100 Intake: Oral 100 Other: Voiding Method Toilet Weight 82.554 kg 82.554 kg - Constitutional General appearance: cooperative, no acute distress - EENT ENT: NA/AT - Respiratory Respiratory: bilateral: diminished - Cardiovascular Rhythm: regularly irregular leg Peripheral Edema: bilateral: 1+ - Gastrointestinal General gastrointestinal: distended - Integumentary Integumentary: pale - Musculoskeletal Musculoskeletal: generalized weakness - Psychiatric Psychiatric: A&O x's 3, appropriate affect Results CBC & Chem 7: 07/08/21 05:38 07/08/21 05:49 Labs: Abnormal Lab Results - Last 24 Hours (Table) 07/07/21 07/07/21 07/08/21 Range/Units 18:48 20:32 05:38 RBC 3.56 L (4.30-5.90) m/uL Hgb 10.9 L (13.0-17.5) gm/dL Hct 32.9 L (39.0-53.0) % Lymphocytes # 0.9 L (1.0-4.8) k/uL D-Dimer (<0.60) mg/L FEU Sodium 134 L (137-145) mmol/L BUN 21 H (9-20) mg/dL Glucose 123 H (74-99) mg/dL Calcium (8.4-10.2) mg/dL Alkaline Phosphatase 166 H (38-126) U/L Total Protein 5.8 L (6.3-8.2) g/dL Albumin 2.9 L (3.5-5.0) g/dL Ur Specific [place] 1.037 H (1.001-1.035) Urine Protein 1+ H (Negative) Urine Ketones 2+ H (Negative) Urine Bilirubin 1+ H (Negative) Calcium Oxalate Crystal Rare H (None) /hpf Hyaline Casts 7 H (0-2) /lpf Urine Mucus Many H (None) /hpf 07/08/21 07/08/21 Range/Units 05:49 14:55 RBC (4.30-5.90) m/uL Hgb (13.0-17.5) gm/dL Hct (39.0-53.0) % Lymphocytes # (1.0-4.8) k/uL D-Dimer 5.51 H (<0.60) mg/L FEU Sodium 135 L (137-145) mmol/L BUN 22 H (9-20) mg/dL Glucose 102 H (74-99) mg/dL Calcium 8.2 L (8.4-10.2) mg/dL Alkaline Phosphatase (38-126) U/L Total Protein (6.3-8.2) g/dL Albumin (3.5-5.0) g/dL Ur Specific [place] (1.001-1.035) Urine Protein (Negative) Urine Ketones (Negative) Urine Bilirubin (Negative) Calcium Oxalate Crystal (None) /hpf Hyaline Casts (0-2) /lpf Urine Mucus (None) /hpf Chest x-ray: report reviewed Assessment and Plan (1) Ascites Current Visit: Yes Status: Acute Code(s): R18.8 - OTHER ASCITES SNOMED Code(s): 246821879 (2) Gastric cancer Current Visit: Yes Status: Acute Code(s): C16.9 - MALIGNANT NEOPLASM OF STOMACH, UNSPECIFIED SNOMED Code(s): 824807990 (3) Stomach cancer Current Visit: Yes Status: Acute Code(s): C16.9 - MALIGNANT NEOPLASM OF STOMACH, UNSPECIFIED SNOMED Code(s): 411659025 Plan: 1. CTA to rule out Pulmonary EMboli 2. Paracentesiis therapeutic and Diagnostic 3. Supportive care 4. Daily CBC, CMP Physician Attest: I have completed the full history and physical and agree with above dictation, dictated as a scribe
[2021-07-08] MEDS ORDERED: ATORVASTATIN 80 MG TAB ONE (23:59)
[2021-07-08] MEDS ORDERED: MELATONIN 5 MG TABLET ONE (23:59)
[2021-07-08] MEDS ORDERED: SODIUM CHLORIDE 0.9% 50 ML BAG ONE (23:59)
[2021-07-08] MEDS ORDERED: cefTRIAXone 2 GM VIAL ONE (23:59)
--- NOTE | 2021-07-09 03:37 | CT ---
EXAMINATION TYPE: CT angio chest DATE OF EXAM: 07/09/2021 COMPARISON: None HISTORY: elevated d-dimer CT DLP: 409 mGycm Automated exposure control for dose reduction was used. CONTRAST: Performed with IV Contrast, patient injected with 100 mL of Isovue 370. There are 3-D post processed images. There are mild bilateral pleural effusions. Heart size is normal. There is no pericardial effusion. T here is large amount of abdominal ascites. Liver is irregular consistent with cirrhosis. There are no hilar masses. There is no mediastinal adenopathy. The thoracic spine is intact. There is no compression fracture. Sternum is intact. The ribs appear in tact. IMPRESSION: No evidence of pulmonary embolism. Mild to moderate bilateral pleural effusions. Massive abdominal ascites. Hepatic changes which are co nsistent with cirrhosis.
[2021-07-09] MEDS: ATORVASTATIN 80 MG TAB PO SCH ×2 (06:35→21:22)
[2021-07-09] MEDS: HEPARIN SODIUM,PORCINE/PF 5,000 UNIT/0.5 ML SYRINGE SQ SCH ×4 (06:37→21:22)
[2021-07-09] MEDS: SODIUM CHLORIDE 0.9% 1,000 ML IV SCH ×2 (06:37→13:30)
[2021-07-09] MEDS: lisinopriL 5 MG TAB PO SCH (08:38)
[2021-07-09] MEDS: carvediloL 3.125 MG TAB PO SCH ×2 (08:38→16:40)
[2021-07-09] MEDS: CLOPIDOGREL 75 MG TAB PO SCH (08:38)
[2021-07-09] MEDS: AZITHROMYCIN 500 MG TAB PO SCH (08:39)
--- NOTE | 2021-07-09 08:48 | US ---
EXAMINATION TYPE: US abdomen limited DATE OF EXAM: 07/09/2021 COMPARISON: NONE CLINICAL HISTORY: ascites. distended ABD All four quadrants scanned. Moderate to severe ascites noted IMPRESSION: Marked ascites.
--- NOTE | 2021-07-09 16:38 | P.PN ---
Subjective Progress Note Date: 07/09/21 No significant events overnight. Patient denies any abdominal pain, no nausea or vomiting, but he has been complaining of significant diarrhea with multiple bowel movements throughout the night. Denies any fevers or chills, no chest pain, shortness of breath, but he is complaining of feeling very fatigued and tired. His appetite is very poor and his oral intake has been very minimal, denies any nausea or vomiting, no dysphagia. Ultrasound of the abdomen shows significant ascites, plan for paracentesis on Sunday Objective - Vital Signs Vital signs: Vital Signs Temp 98.3 F 07/09/21 13:17 Pulse 76 07/09/21 13:17 Resp 17 07/09/21 13:17 BP 117/74 07/09/21 13:17 Pulse Ox 98 07/09/21 13:17 Intake & Output 07/08/21 07/09/21 07/09/21 18:59 06:59 18:59 Intake Total 900 Balance 900 Weight 82.554 kg Intake: Intake, IV Titration 900 Amount Sodium Chloride 0.9% 1, 900 000 ml @ 75 mls/hr IV . [id number] [facility] Rx#:[id number] Other: Voiding Method Toilet Toilet # Voids 3 2 # Bowel Movements 3 - Exam General: Nontoxic, no distress and appears stated age. Derm: Skin warm and dry, normal coloration for ethnicity. Head: Atraumatic, normocephalic and symmetric. Eyes: EOMs intact, no lid lag, and anicteric sclera Mouth: no lip lesions, mucus membranes moist Cardiovascular: regular rate and rhythm with normal S1S2, no murmur, positive posterior tibial pulses bilaterally, and cap refill < 2 seconds. Lungs: Respirations even, regular, and unlabored on 2 L O2 via nasal cannula.. Left lower lobe crackles, lungs otherwise clear to auscultation. No accessory muscle use. Abdominal:distended, nontender to palpation, no guarding, no appreciable organomegaly Ext: ROM intact. No gross muscle atrophy, 1+ pitting bilateral lower extremity edema, no contractures Neuro: Speech clear, face symmetrical and CN II-XII grossly intact with no noted focal neuro deficits - Labs CBC & Chem 7: 07/08/21 05:38 07/08/21 05:49 Labs: Abnormal Lab Results - Last 24 Hours (Table) 07/08/21 Range/Units 14:55 Procalcitonin 0.19 H (0.02-0.09) ng/mL Microbiology - Last 24 Hours (Table) 07/07/21 22:11 Blood Culture - Preliminary Blood No Growth after 24 hours Assessment and Plan Plan: Sepsis-present on admission -Source is unclear, chest x-ray shows bilateral pleural effusions which may be due to pneumonia -Patient also has significant ascites, cannot rule out SBP at this point -Continue azithromycin and Rocephin -Follow up on cultures Covid PCR negative. -Oxygenation to be administered as needed and titrated as needed to maintain SPO2 equal to or greater than 92% -Telemetry monitoring. Acute hypoxic respiratory failure -Secondary to above -CTA negative for PE -Currently on 2 L of oxygen, no history of home oxygen use Ascites -Secondary to gastric cancer with metastasis to the omentum -Cannot rule out SBP at this point -Plan for paracentesis on Sunday -Hold all antiplatelets and anticoagulants recently diagnosed Stomach cancer with metastasis -Patient is not currently undergoing treatment for his cancer, as he has sche duled an appointment with Dr. Velazquez on 07/12/21 to establish care and discuss possible treatment options. -Hematology/oncology consult placed Hypertension Monitor vital signs and continue daily medication regimen with carvedilol and lisinopril. Hyperlipidemia Continue daily medication regimen with atorvastatin 80 mg nightly. GERD GI prophylaxis with Protonix 40 mg by mouth daily. Time with Patient: Greater than 30
[2021-07-09] MEDS: LOPERAMIDE 2 MG CAP PO PRN (17:42)
[2021-07-09] MEDS ORDERED: HEPARIN SODIUM,PORCINE/PF 5,000 UNIT/0.5 ML SYRINGE SQ ONE (23:59)
[2021-07-09] MEDS ORDERED: SODIUM CHLORIDE 0.9% 1,000 ML BAG ONE (23:59)
[2021-07-10] MEDS: AZITHROMYCIN 500 MG TAB PO SCH (08:54)
[2021-07-10] MEDS: HEPARIN SODIUM,PORCINE/PF 5,000 UNIT/0.5 ML SYRINGE SQ SCH ×3 (08:55→22:36)
[2021-07-10] MEDS: lisinopriL 5 MG TAB PO SCH (08:55)
[2021-07-10] MEDS: carvediloL 3.125 MG TAB PO SCH ×2 (08:55→17:23)
[2021-07-10 09:46] LABS: Basophils # (A) 0.01 X 10*3/uL (0.00-0.10); Basophils % (A) 0.2 %; Eosinophils # (A) 0.14 X 10*3/uL (0.04-0.35); Eosinophils % (A) 2.9 %; HCT 30.5 % (39.6-50.0); Lymphocytes # (A) 0.79 X 10*3/uL (0.90-5.00); Lymphocytes % (A) 16.4 %; MCH 30.4 pg (27.0-32.0); MCHC 32.8 g/dL (32.0-37.0); MCV 92.7 fL (80.0-97.0); Mean Platelet Volume 10.1 fL (9.5-12.2); Monocytes # (A) 0.45 X 10*3/uL (0.20-1.00); Monocytes % (A) 9.3 %; Neutrophils # (A) 3.41 X 10*3/uL (1.80-7.70); Neutrophils % (A) 70.8 %; Platelet Count 243 X 10*3/uL (140-440); RBC 3.29 X 10*6/uL (4.40-5.60); WBC 4.82 X 10*3/uL (4.50-10.00)
[2021-07-10 10:51] LABS: African American GFR (CKD) 106.2 (60.0-200.0); Albumin 2.5 g/dL (3.8-4.9); Albumin/Globulin Ratio 1.21 (1.60-3.17); Anion Gap 9.4 mmol/L (4.00-12.00); BUN/Creat Ratio 21.17 Ratio (12.00-20.00); Calcium 8.1 mg/dL (8.7-10.3); Carbon Dioxide 24.6 mmol/L (21.6-31.8); Globulin 2.1 g/dL (1.6-3.3); Magnesium 1.8 mg/dL (1.5-2.4); Non-African American GFR(CKD) 91.7 (60.0-200.0); Potassium 3.7 mmol/L (3.5-5.5); Total Bilirubin 0.3 mg/dL (0.30-1.20); Total Protein 4.6 g/dL (6.2-8.2)
--- NOTE | 2021-07-10 16:52 | P.PN ---
Subjective Progress Note Date: 07/10/21 patient had a bloody bowel movement today, but diarrhea is overall improving. Denies any abdominal pain, nausea or vomiting, is tolerating a regular diet. Vital signs of been stable, has been afebrile, overall no other changes in the last 24 hours. Awaiting paracentesis tomorrow Objective - Vital Signs Vital signs: Vital Signs Temp 98.4 F 07/10/21 14:00 Pulse 68 07/10/21 14:00 Resp 16 07/10/21 14:00 BP 114/67 07/10/21 14:00 Pulse Ox 95 07/10/21 14:00 Intake & Output 07/09/21 07/10/21 07/10/21 18:59 06:59 18:59 Other: Voiding Method Toilet Toilet Toilet # Voids 5 # Bowel Movements 12 - Exam General: Nontoxic, no distress and appears stated age. Derm: Skin warm and dry, normal coloration for ethnicity. Head: Atraumatic, normocephalic and symmetric. Eyes: EOMs intact, no lid lag, and anicteric sclera Mouth: no lip lesions, mucus membranes moist Cardiovascular: regular rate and rhythm with normal S1S2, no murmur, positive posterior tibial pulses bilaterally, and cap refill < 2 seconds. Lungs: Respirations even, regular, and unlabored on 2 L O2 via nasal cannula.. Left lower lobe crackles, lungs otherwise clear to auscultation. No accessory muscle use. Abdominal:distended, nontender to palpation, no guarding, no appreciable organomegaly Ext: ROM intact. No gross muscle atrophy, 1+ pitting bilateral lower extremity edema, no contractures Neuro: Speech clear, face symmetrical and CN II-XII grossly intact with no noted focal neuro deficits - Labs CBC & Chem 7: 07/10/21 06:20 07/10/21 06:20 Labs: Abnormal Lab Results - Last 24 Hours (Table) 07/10/21 07/10/21 Range/Units 06:20 06:20 RBC 3.29 L (4.40-5.60) X 10*6/uL Hgb 10.0 L (13.0-17.0) g/dL Hct 30.5 L (39.6-50.0) % RDW 15.0 H (11.5-14.5) % Lymphocytes # 0.79 L (0.90-5.00) X 10*3/uL BUN/Creatinine Ratio 21.17 H (12.00-20.00) Ratio Calcium 8.1 L (8.7-10.3) mg/dL AST 11 L (14-35) U/L ALT 7 L (10-49) U/L Total Protein 4.6 L (6.2-8.2) g/dL Albumin 2.5 L (3.8-4.9) g/dL Albumin/Globulin Ratio 1.21 L (1.60-3.17) g/dL Microbiology - Last 24 Hours (Table) 07/07/21 22:11 Blood Culture - Preliminary Blood No Growth after 48 hours Assessment and Plan Plan: Sepsis-present on admission -Source is unclear, chest x-ray shows bilateral pleural effusions which may be due to pneumonia -Patient also has significant ascites, cannot rule out SBP at this point -Continue azithromycin and Rocephin -Follow up on cultures Covid PCR negative. GI bleed -Patient had bright red bloody stool this morning -CBC this afternoon, transfuse for hemoglobin less than 7 -If bleeding continues, discontinue heparin. 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 Velazquez on 07/12/21 to establish care and discuss possible treatment options. -Hematology/oncology consult placed Hypertension Monitor vital signs and continue daily medication regimen with carvedilol and lisinopril. Hyperlipidemia Continue daily medication regimen with atorvastatin 80 mg nightly. GERD GI prophylaxis with Protonix 40 mg by mouth daily. Time with Patient: Less than 30
[2021-07-10 17:34] LABS: Basophils % (A) 0 %; Eosinophils # (A) 0.1 k/uL (0-0.7); Eosinophils % (A) 2 %; HCT 34.9 % (39.0-53.0); HGB 11.3 gm/dL (13.0-17.5); Lymphocytes # (A) 0.8 k/uL (1.0-4.8); Lymphocytes % (A) 16 %; MCH 29.9 pg (25.0-35.0); MCHC 32.4 g/dL (31.0-37.0); MCV 92.2 fL (80.0-100.0); Mean Platelet Volume 7.5; Monocytes # (A) 0.3 k/uL (0-1.0); Monocytes % (A) 6 %; Neutrophils # (A) 3.7 k/uL (1.3-7.7); Neutrophils % (A) 73 %; Platelet Count 310 k/uL (150-450); RBC 3.79 m/uL (4.30-5.90); RDW 14.9 % (11.5-15.5); WBC 5.1 k/uL (3.8-10.6)
[2021-07-10] MEDS: MELATONIN 5 MG TABLET PO PRN (22:36)
[2021-07-10] MEDS: ATORVASTATIN 80 MG TAB PO SCH (22:36)
[2021-07-10] MEDS: LOPERAMIDE 2 MG CAP PO PRN (22:36)
[2021-07-11] MEDS: HEPARIN SODIUM,PORCINE/PF 5,000 UNIT/0.5 ML SYRINGE SQ SCH ×2 (06:30→17:49)
[2021-07-11] MEDS: AZITHROMYCIN 500 MG TAB PO SCH (08:05)
[2021-07-11] MEDS: carvediloL 3.125 MG TAB PO SCH ×2 (08:05→17:49)
[2021-07-11] MEDS: lisinopriL 5 MG TAB PO SCH (08:05)
[2021-07-11 09:23] LABS: HCT 31.7 % (39.0-53.0); HGB 10.5 gm/dL (13.0-17.5); MCH 30.8 pg (25.0-35.0); MCHC 33.2 g/dL (31.0-37.0); MCV 92.8 fL (80.0-100.0); Mean Platelet Volume 7.1; Platelet Count 259 k/uL (150-450); RBC 3.42 m/uL (4.30-5.90); RDW 14.9 % (11.5-15.5)
[2021-07-11 09:38] LABS: ALT 7 U/L (4-49); AST 15 U/L (17-59); African American GFR (CKD) >90 (>60 ml/min/1.73 sqM); Albumin 2.3 g/dL (3.5-5.0); Albumin/Globulin Ratio 0.9; Alkaline Phosphatase 88 U/L (38-126); Anion Gap 5 mmol/L; Blood Urea Nitrogen 15 mg/dL (9-20); Calcium 8.3 mg/dL (8.4-10.2); Carbon Dioxide 26 mmol/L (22-30); Chloride 104 mmol/L (98-107); Globulin 2.5 g/dL; Glucose 109 mg/dL (74-99); Non-African American GFR(CKD) >90 (>60 ml/min/1.73 sqM); Potassium 3.2 mmol/L (3.5-5.1); Sodium 135 mmol/L (137-145); Total Bilirubin 0.4 mg/dL (0.2-1.3); Total Protein 4.8 g/dL (6.3-8.2)
[2021-07-11 09:45] LABS: Prothrombin Time 10.7 sec (9.0-12.0)
--- NOTE | 2021-07-11 10:49 | P.PN ---
Subjective Progress Note Date: 07/11/21 Principal diagnosis: cough, CAP, ascites In f/u today pt reports stable/improved breathing, pending another paracentesis to see if that improves breathing and for cytology. Objective - Vital Signs Vital signs: Vital Signs Temp 98.3 F 07/11/21 07:14 Pulse 80 07/11/21 07:14 Resp 16 07/11/21 07:14 BP 143/79 07/11/21 07:14 Pulse Ox 99 07/11/21 07:14 Intake & Output 07/10/21 07/11/21 07/11/21 18:59 06:59 18:59 Intake Total 240 Balance 240 Intake: Oral 240 Other: Voiding Method Toilet Toilet # Voids 3 # Bowel Movements 2 - Constitutional General appearance: Present: average body habitus, cooperative, no acute distress - EENT Eyes: Present: anicteric sclerae, EOMI ENT: Present: hearing grossly normal - Respiratory Respiratory: bilateral: CTA, diminished (bases) - Cardiovascular Heart sounds: normal: S1, S2 - Peripheral edema leg Peripheral Edema: bilateral: None - Gastrointestinal General gastrointestinal: Present: distended, normal bowel sounds, soft - Neurologic Neurologic: Present: CNII-XII intact (grossly) - Psychiatric Psychiatric: Present: A&O x's 3, appropriate affect, intact judgment & insight - Labs CBC & Chem 7: 07/11/21 09:11 07/11/21 09:11 Labs: Abnormal Lab Results - Last 24 Hours (Table) 07/10/21 07/10/21 07/11/21 Range/Units 06:20 17:06 09:11 RBC 3.79 L 3.42 L (4.30-5.90) m/uL Hgb 11.3 L 10.5 L (13.0-17.5) gm/dL Hct 34.9 L 31.7 L (39.0-53.0) % Lymphocytes # 0.8 L (1.0-4.8) k/uL Sodium (137-145) mmol/L Potassium (3.5-5.1) mmol/L BUN/Creatinine Ratio 21.17 H (12.00-20.00) Ratio Glucose (74-99) mg/dL Calcium 8.1 L (8.7-10.3) mg/dL AST 11 L (14-35) U/L ALT 7 L (10-49) U/L Total Protein 4.6 L (6.2-8.2) g/dL Albumin 2.5 L (3.8-4.9) g/dL Albumin/Globulin Ratio 1.21 L (1.60-3.17) g/dL 07/11/21 Range/Units 09:11 RBC (4.30-5.90) m/uL Hgb (13.0-17.5) gm/dL Hct (39.0-53.0) % Lymphocytes # (1.0-4.8) k/uL Sodium 135 L (137-145) mmol/L Potassium 3.2 L (3.5-5.1) mmol/L BUN/Creatinine Ratio (12.00-20.00) Ratio Glucose 109 H (74-99) mg/dL Calcium 8.3 L (8.7-10.3) mg/dL AST 15 L (14-35) U/L ALT (10-49) U/L Total Protein 4.8 L (6.2-8.2) g/dL Albumin 2.3 L (3.8-4.9) g/dL Albumin/Globulin Ratio (1.60-3.17) g/dL Microbiology - Last 24 Hours (Table) 07/07/21 22:11 Blood Culture - Preliminary Blood No Growth after 72 hours - Imaging and Cardiology CT scan - chest: report reviewed (no PE) US - abdomen: report reviewed (marked ascites) Assessment and Plan (1) Ascites Narrative/Plan: Pt has had a negative cytology previously. Another para is planned, pending cytology on next specimen. Case discussed with Lab, need a value for ascitic albumin not a range to calculate SAG. May have to request specimen be sent out when the calculated value is <5-less then 5 is not measurable in house lab. Current Visit: Yes Status: Acute Priority: High Code(s): R18.8 - OTHER ASCITES SNOMED Code(s): 072970672 (2) Gastric cancer Narrative/Plan: PET scan showed suspicious uptake in the omentum. The ascites may be r/t cirrhosis or malignancy. It was discussed with the pt that his liver has cirrhotic look to it, pt states previous ETOH use. Pt has had cytology on 1 specimen of ascitic fluid that was neg for malignancy. Pending cytology from planned paracentesis. Current Visit: Yes Status: Acute Priority: High Code(s): C16.9 - MALIGNANT NEOPLASM OF STOMACH, UNSPECIFIED SNOMED Code(s): 112181879 Plan: Attests: I have seen and examined pt, performed H&P, developed impression and plan of care. Discussed with dictator. Agree with documentation, documented as a scribe.
--- NOTE | 2021-07-11 18:07 | P.PN ---
Subjective Progress Note Date: 07/11/21 (delayed charting seen at 1045) Patient is a 70-year-old male with recently diagnosed stomach cancer, hypertension, dyslipidemia, and prior stroke who presented secondary to abdominal bloating and fevers. Patient seen and examined at bedside. He is very that he cannot have his paracentesis done until 07/13. He states he is still having some abdominal pressure and bloating feelings. He denies any cough, congestion, shortness of breath. present at bedside and we discussed coming up with Plavix this is only indication was prior stroke 2 years ago. We discussed risks and benefits and she does not want to delay paracentesis in the future. I did inform him that coming off of Plavix would increase his risk of recurrent stroke, however he finds it more frustrating To delay paracentesis with Plavix and would like to come off of this. We discussed that he will need to take a baby aspirin instead and he is agreeable with that. General: non toxic, no distress, appears at stated age Derm: warm, dry Head: atraumatic, normocephalic, symmetric Eyes: EOMI, no lid lag, anicteric sclera Mouth: no lip lesion, mucus membranes moist Cardiovascular: S1S2 reg, no murmur, positive posterior tibial pulse bilateral, Lungs: CTA bilateral, no rhonchi, no rales , no accessory muscle use Abdominal: Distended, nontender to palpation, no guarding, no appreciable organomegaly Ext: no gross muscle atrophy, no edema, no contractures Neuro: CN II-XI grossly intact, no focal neuro deficits Psych: Alert, oriented, appropriate affect Pyrexia on admission with fever of 100.1 -Sepsis ruled out as no documented fever greater than 100.4 and only needs one criteria of pulse of 1:15. White blood cell count has remained normal throughout his hospital stay -Suspect this is reflective of B symptoms from his known cancer and ascites. -Patient has been on antibiotics and paracentesis likely will not yield whether or not this is SBP. -Continue with Rocephin Ascites with recently diagnosed gastic cancer with metastasis -Case discussed with oncology and he'll have rapid outpatient follow-up -Oncology will await cytology from paracentesis. -Patient unable to have paracentesis today as he last had Plavix on 07/08 and will not be able to have her until 07/13 GI bleed 1 -Bright red blood in his stool has resolved -Follow CBC -Transfuse for hemoglobin less than 7 Hypertension -controlled -Continue with Coreg and lisinopril GERD -Protonix History of CVA -Patient has history of CVA 2 years ago and has since been on Plavix. Discussed with patient that it may be best to hold Plavix until we can determine that his ascites will not recur and he has had all evaluations necessary for his cancer including biopsies. Patient is aware that this would increase his risk of recurrent stroke. He is amenable to taking a baby aspirin which was confirmed with interventional radiology will not delay paracentesis in the future. Patient is in agreement. -Asked patient to follow-up with his primary on discharge to ensure that he is in agreement. Acute hypoxic respiratory failure, resolved Likely discharge on 07/13 after paracentesis. Objective - Vital Signs Vital signs: Vital Signs Temp 97.8 F 07/11/21 14:00 Pulse 72 07/11/21 14:00 Resp 16 07/11/21 14:00 BP 117/70 07/11/21 14:00 Pulse Ox 93 L 07/11/21 14:00 Intake & Output 07/10/21 07/11/21 07/11/21 18:59 06:59 18:59 Intake Total 240 Balance 240 Intake: Oral 240 Other: Voiding Method Toilet Toilet Toilet # Voids 3 2 # Bowel Movements 2 - Labs CBC & Chem 7: 07/11/21 09:11 07/11/21 09:11 Labs: Abnormal Lab Results - Last 24 Hours (Table) 07/11/21 07/11/21 Range/Units 09:11 09:11 RBC 3.42 L (4.30-5.90) m/uL Hgb 10.5 L (13.0-17.5) gm/dL Hct 31.7 L (39.0-53.0) % Sodium 135 L (137-145) mmol/L Potassium 3.2 L (3.5-5.1) mmol/L Glucose 109 H (74-99) mg/dL Calcium 8.3 L (8.4-10.2) mg/dL AST 15 L (17-59) U/L Total Protein 4.8 L (6.3-8.2) g/dL Albumin 2.3 L (3.5-5.0) g/dL Microbiology - Last 24 Hours (Table) 07/07/21 22:11 Blood Culture - Preliminary Blood No Growth after 72 hours
[2021-07-11] MEDS: MELATONIN 5 MG TABLET PO PRN (20:19)
[2021-07-11] MEDS: ATORVASTATIN 80 MG TAB PO SCH (20:19)
[2021-07-12] MEDS: lisinopriL 5 MG TAB PO SCH (07:40)
[2021-07-12] MEDS: carvediloL 3.125 MG TAB PO SCH ×2 (07:40→16:59)
[2021-07-12] MEDS: AZITHROMYCIN 500 MG TAB PO SCH (07:40)
[2021-07-12] MEDS: HEPARIN SODIUM,PORCINE/PF 5,000 UNIT/0.5 ML SYRINGE SQ SCH ×4 (07:40→23:30)
--- NOTE | 2021-07-12 10:32 | P.PN ---
Subjective Progress Note Date: 07/12/21 Principal diagnosis: Feels okay, no chest pain no abdominal pain no nausea no vomiting no dizziness no shortness of breath. Patient remains afebrile. Objective - Vital Signs Vital signs: Vital Signs Temp 97.7 F 07/12/21 07:32 Pulse 97 07/12/21 07:32 Resp 18 07/12/21 08:00 BP 132/84 07/12/21 07:32 Pulse Ox 97 07/12/21 07:32 Intake & Output 07/11/21 07/12/21 07/12/21 18:59 06:59 18:59 Intake Total 290 Output Total 600 Balance -310 Intake: IV 50 Invasive Line 1 50 Oral 240 Output: Urine 600 Other: Voiding Method Toilet # Voids 2 2 # Bowel Movements 1 - Exam General: non toxic, no distress, appears at stated age Derm: warm, dry Head: atraumatic, normocephalic, symmetric Eyes: EOMI, no lid lag, anicteric sclera Mouth: no lip lesion, mucus membranes moist Cardiovascular: S1S2 reg, no murmur, positive posterior tibial pulse bilateral, Lungs: CTA bilateral, no rhonchi, no rales , no accessory muscle use Abdominal: Distended, nontender to palpation, no guarding Ext: no gross muscle atrophy, no edema, no contractures Neuro: CN II-XI grossly intact, no focal neuro deficits Psych: Alert, oriented, appropriate affect - Labs CBC & Chem 7: 07/11/21 09:11 07/11/21 09:11 Labs: Microbiology - Last 24 Hours (Table) 07/07/21 22:11 Blood Culture - Preliminary Blood No Growth after 96 hours Assessment and Plan Assessment: Sepsis ruled out as no documented fever greater than 100.4 and only needs one criteria of pulse of 1:15. White blood cell count has remained normal throughout his hospital stay -Suspect this is reflective of B symptoms from his known cancer and ascites. -Patient has been on antibiotics and paracentesis likely will not yield whether or not this is SBP. -Continue with Rocephin, supportive care. Ascites with recently diagnosed gastic cancer with metastasis -Oncology will await cytology from paracentesis, he'll follow up with oncology as an outpatient. Patient was on Plavix , last dose 07/08. Paracentesis tomorrow. GI bleed 1 -Bright red blood in his stool has resolved -Transfuse for hemoglobin less than 7 Monitor H&H Hypertension -controlled -Continue with Coreg and lisinopril GERD -Protonix History of CVA -Patient has history of CVA 2 years ago and has since been on Plavix. hold Plavix until we can determine that his ascites will not recur and he has had all evaluations necessary for his cancer including biopsies. Acute hypoxic respiratory failure, resolved Likely discharge on 07/13 after paracentesis (paracenteses)
[2021-07-12] MEDS: ATORVASTATIN 80 MG TAB PO SCH (20:43)
[2021-07-12] MEDS: MELATONIN 5 MG TABLET PO PRN (20:43)
[2021-07-13] MEDS: HEPARIN SODIUM,PORCINE/PF 5,000 UNIT/0.5 ML SYRINGE SQ SCH (07:31)
[2021-07-13] MEDS: AZITHROMYCIN 500 MG TAB PO SCH (07:43)
[2021-07-13] MEDS: carvediloL 3.125 MG TAB PO SCH (07:43)
[2021-07-13] MEDS: lisinopriL 5 MG TAB PO SCH (07:43)
[2021-07-13 08:17] VITALS: TEMP 98.3
--- NOTE | 2021-07-13 10:01 | P.DS ---
Providers Date of admission: 07/07/21 21:28 Expected date of discharge: 07/13/21 Attending physician: Fallon Bajwa MD Consults: 07/07/21 21:30 Consult Physician Urgent Consulting Provider: Paty Velazquez Consult Reason/Comments: stage 4 stomach cancer Do you want consulting provider notified?: Yes Primary care physician: Timo Cheung MD Hospital Course: History of Presenting Illness: Patient is a 70-year-old male with a past medical history of hypertension, hyperlipidemia, GERD, and recently diagnosed stomach cancer with metastasis. Patient reports since diagnosis of his stomach cancer he has developed abdominal ascites requiring paracentesis with last paracentesis being approximately one month ago. Patient states that over the past few days he began experiencing the same symptoms he had prior to his last paracentesis including weakness, fatigue, cough, shortness of breath, dyspnea with exertion with exertion, and very poor appetite due to constant feeling of fullness from abdominal distention. Patient is not currently undergoing treatment for his cancer, as he has scheduled an appointment with Dr. Velazquez on 07/12/21 to establish care and discuss possible treatment options. Patient was evaluated in the emergency department. He was initially tachycardic with heart rate as high as 115, low-grade temp of 100.1, and tachypneic with respiratory rate of 41. An EKG was completed revealing sinus tachycardia at 113 bpm with T-wave inversion in leads II, aVF, V3, V4, V5, and V6 unchanged from previous EKG completed 06/01/21. Chest x-ray revealing small bilateral pleural effusions. Urinalysis negative for infection. Patient seen and fully evaluated at the bedside this morning. He reports feeling slightly b horacio this morning. Morning labs reviewed revealing normocytic normochromic anemia with hemoglobin of 10.9. Patient reports continued abdominal fullness/distention and shortness of breath with exertion. Denies headache, lightheadedness, dizziness, chest pain, palpitations, or experiencing any numbness/tingling/weakness in his extremities. .Patient is admitted under our services with consult to hematology/oncologist Dr. Velazquez. Hospital course and treatment: Patient was admitted to the hospital with fatigue and weakness. He was recently diagnosed with metastatic stomach cancer. Upon admission he was febrile with temperature of 100.1. Sepsis ruled out fever was likely associated with underlying cancer. He has improved with antibiotics. He was found to have ascites likely associated with malignancy. He will have a paracentesis performed today. Oncology will await cytology report. He initially had some bright red blood in the stool but this has resolved. He has history of CVA with no residual findings. Plavix was held for the procedure. He will be discharged home with oncology follow-up as an outpatient after paracenteses. Patient Condition at Discharge: Fair Plan - Discharge Summary Discharge Rx Participant: No New Discharge Prescriptions: Continue carvediloL [Coreg] 3.125 mg PO BID-W/MEALS #180 tab Atorvastatin [Lipitor] 80 mg PO HS #90 tab Clopidogrel [Plavix] 75 mg PO DAILY #90 tab lisinopriL [Zestril] 5 mg PO DAILY Discharge Medication List Atorvastatin [Lipitor] 80 mg PO HS #90 tab 03/18/19 [Rx] Clopidogrel [Plavix] 75 mg PO DAILY #90 tab 03/18/19 [Rx] carvediloL [Coreg] 3.125 mg PO BID-W/MEALS #180 tab 03/18/19 [Rx] lisinopriL [Zestril] 5 mg PO DAILY 07/07/21 [History] Follow up Appointment(s)/Referral(s): Timo Cheung MD [Primary Care Provider] - 1-2 days Paty Velazquez MD [STAFF PHYSICIAN] - 07/19/21 12:00 pm Discharge Disposition: HOME SELF-CARE
[2021-07-13 10:13] LABS: Basophils # (A) 0.02 X 10*3/uL (0.00-0.10); Basophils % (A) 0.4 %; Eosinophils # (A) 0.09 X 10*3/uL (0.04-0.35); HCT 30.2 % (39.6-50.0); HGB 9.7 g/dL (13.0-17.0); Lymphocytes # (A) 0.81 X 10*3/uL (0.90-5.00); Lymphocytes % (A) 18.1 %; MCH 29.8 pg (27.0-32.0); MCHC 32.1 g/dL (32.0-37.0); MCV 92.6 fL (80.0-97.0); Monocytes # (A) 0.43 X 10*3/uL (0.20-1.00); Monocytes % (A) 9.6 %; Neutrophils # (A) 3.09 X 10*3/uL (1.80-7.70); Platelet Count 309 X 10*3/uL (140-440); RBC 3.26 X 10*6/uL (4.40-5.60); RDW 15.2 % (11.5-14.5); WBC 4.48 X 10*3/uL (4.50-10.00)
[2021-07-13 10:51] LABS: ALT <5 U/L (10-49); AST 11 U/L (14-35); African American GFR (CKD) 101.4 (60.0-200.0); Albumin 2.5 g/dL (3.8-4.9); Albumin/Globulin Ratio 1.19 (1.60-3.17); Alkaline Phosphatase 77 U/L (41-126); BUN/Creat Ratio 15.33 Ratio (12.00-20.00); Blood Urea Nitrogen 13.8 mg/dL (9.0-27.0); Calcium 8.2 mg/dL (8.7-10.3); Carbon Dioxide 23.6 mmol/L (21.6-31.8); Chloride 105 mmol/L (96-109); Globulin 2.1 g/dL (1.6-3.3); Glucose 87 mg/dL (70-110); Non-African American GFR(CKD) 87.5 (60.0-200.0); Potassium 3.8 mmol/L (3.5-5.5); Sodium 140 mmol/L (135-145); Total Protein 4.6 g/dL (6.2-8.2)
[2021-07-13 11:45] VITALS: BP 105/66; PULSE 74; RESP 18
--- NOTE | 2021-07-13 14:01 | US ---
EXAMINATION TYPE: US paracentesis abd w/image DATE OF EXAM: 07/13/2021 COMPARISON: NONE HISTORY: Ascites. PROCEDURE: Maximal barrier technique was utilized. The skin overlying a suitable pocket of fluid was localized with ultrasound and the overlying skin was prepped and draped. Ultrasound was utilized with sterile technique. Lidocaine was used for local anesthesia and a skin josie made with a scalpel. Catheter was advanced under direct ultrasound guidance into a suitable pocket of fluid and approximately 6.6 liter s of serous fluid were removed. Catheter was withdrawn and hemostasis achieved. There is no immedia te complication; the patient is discharged in stable condition. IMPRESSION: STATUS POST ULTRASOUND GUIDED PARACENTESIS FOR PALLIATION OF ASCITES. Specimen sent for laboratory analysis. THIS PROCEDURE WAS PERFORMED BY THE UNDERSIGNED.
[2021-07-13 14:46] LABS: Appearance,BF Clear; Nucleated Cells, Body Fluid 220 /uL; RBC, Body Fluid 145 /uL
[2021-07-13 15:16] LABS: Mononuclear WBC,Body Fluid 97 %; Polynuclear WBC,Body Fluid 3 %; Total Cells Counted,Body Fluid 100
[2021-07-14 03:21] LABS: Glucose, BF Source Ascites; Glucose, Body Fluid 65 mg/dL; LDH, Body Fluid Source Ascites; Total Protein, Body Fluid 2990 mg/dL
== END 2021-07-13 13:17 | disposition home or self-care (01) | DRG 374 ==
LOC: EC 16:08 → 4SSUR 21:28
PROVIDERS: ADMIT Internal Medicine; ATTEND Internal Medicine
PROC: 0W9G3ZZ Drainage of Peritoneal Cavity, Percutaneous Approach (ICD-10-PCS; principal; 2021-07-13)
DX: C16.9 Malignant neoplasm of stomach, unspecified (principal); J96.01 Acute respiratory failure with hypoxia; C79.9 Secondary malignant neoplasm of unspecified site; J90 Pleural effusion, not elsewhere classified; J98.11 Atelectasis; K62.5 Hemorrhage of anus and rectum; R18.0 Malignant ascites; E86.0 Dehydration; R53.1 Weakness; D64.9 Anemia, unspecified; E78.5 Hyperlipidemia, unspecified; I10 Essential (primary) hypertension; K21.9 Gastro-esophageal reflux disease without esophagitis; Z20.822 Contact with and (suspected) exposure to COVID-19; E53.8 Deficiency of other specified B group vitamins; Z79.02 Long term (current) use of antithrombotics/antiplatelets; Z79.899 Other long term (current) drug therapy; Z82.49 Family history of ischemic heart disease and other diseases of the circulatory system; Z86.73 Personal history of transient ischemic attack (TIA), and cerebral infarction without residual deficits; Z87.891 Personal history of nicotine dependence
CPT/HCPCS: 36415; 49083; 71046; 71275; 76705; 80048; 80053; 81001; 82945; 83605; 83615; 83735; 83880; 84100; 84145; 84157; 84484; 85025; 85027; 85379; 85610; 85730; 87040; 87070; 87075; 87205; 87324; 87502; 87634; 87635; 88108; 88305; 89050; 93005; 94760; 96360; 99285

== ENCOUNTER 2021-07-27 09:59 | Inpatient (IN) | payer MEDICARE ==
[2021-07-27] MEDS ORDERED: SODIUM CHLORIDE 0.9% 1,000 ML IV STA ×2 (10:20)
--- NOTE | 2021-07-27 10:42 | ED ---
Nausea/Vomiting/Diarrhea HPI - General Chief complaint: Nausea/Vomiting/Diarrhea Stated complaint: vomiting Time Seen by Provider: 07/27/21 10:25 Source: patient, family, RN notes reviewed Mode of arrival: ambulatory Limitations: no limitations - History of Present Illness Initial comments: 70-year-old male with a history of stomach cancer who is pending the onset of chemotherapy who states he's had nausea vomiting all night and has not felt well for the past couple days decreased oral intake for 3 days feels lightheaded and weak some dizziness when he gets up too quickly. No overt fevers chills sweats no cough no phlegm production no other complaints or modifying factors at this time he states it has happened before he also is pending a paracentesis in one week. MD complaint: nausea, vomiting, other - Related Data Home Medications Medication Instructions Recorded Confirmed lisinopriL [Zestril] 5 mg PO DAILY 07/07/21 07/27/21 Previous Rx's Medication Instructions Recorded Atorvastatin [Lipitor] 80 mg PO HS #90 tab 03/18/19 Clopidogrel [Plavix] 75 mg PO DAILY #90 tab 03/18/19 carvediloL [Coreg] 3.125 mg PO BID-W/MEALS #180 tab 03/18/19 Allergies Allergy/AdvReac Type Severity Reaction Status Date / Time No Known Allergies Allergy Verified 07/27/21 11:07 Review of Systems ROS Statement: Those systems with pertinent positive or pertinent negative responses have been documented in the HPI. ROS Other: All systems not noted in ROS Statement are negative. Past Medical History Past Medical History: Cancer, CVA/TIA, GERD/Reflux, Hyperlipidemia, Hypertension Additional Past Medical History / Comment(s): Severe B12 deficiency, allergic rhinitis, stomach cancer History of Any Multi-Drug Resistant Organisms: None Reported Past Surgical History: Cholecystectomy Additional [facility] with biopsy that showed stomach cancer June 28 but has not yet started chemotherapy, paracentesis times 2 with last one July 13 6.6 liters removed Past Anesthesia/Blood Transfusion Reactions: No Reported Reaction Additional Past Anesthesia/Blood Transfusion Reaction / Comment(s): no previous blood transfusion Past Psychological History: No Psychological Hx Reported Smoking Status: Former smoker Past Alcohol Use History: Heavy Past Drug Use History: None Reported - Past Family History Father Family Medical History: Congestive Heart Failure (CHF) Additional Family Medical History / Comment(s): Father at the age of 82 yrs from CHF. Mother Family Medical History: No Reported History Additional Family Medical History / Comment(s): Mother was healthy, not on any medications and lived to be 92 yrs old. General Exam - General Exam Comments Initial Comments: This is a well-developed sec appearing male was awake alert oriented 3 Limitations: no limitations General appearance: alert Head exam: Present: atraumatic, normocephalic, normal inspection Eye exam: Present: normal appearance, PERRL, EOMI. Absent: scleral icterus, conjunctival injection, periorbital swelling ENT exam: Present: mucous membranes dry Neck exam: Present: normal inspection. Absent: tenderness, meningismus, lymphadenopathy Respiratory exam: Present: decreased breath sounds (Study decreased breath sounds bilaterally). Absent: respiratory distress, wheezes, rales, rhonchi, stridor Cardiovascular Exam: Present: regular rate, normal rhythm, normal heart sounds. Absent: systolic murmur, diastolic murmur, rubs, gallop, clicks GI/Abdominal exam: Present: soft, normal bowel sounds, other (Bruising noted over the abdominal wall evidence of effusion.). Absent: distended, tenderness, guarding, rebound, rigid Extremities exam: Present: normal inspection, full ROM, normal capillary refill. Absent: tenderness, pedal edema, joint swelling, calf tenderness Back exam: Present: normal inspection Neurological exam: Present: alert, oriented X3, CN II-XII intact Psychiatric exam: Present: normal affect, normal mood Skin exam: Present: warm, dry, intact, normal color. Absent: rash Course Vital Signs 07/27/21 07/27/21 07/27/21 10:09 11:57 13:53 Temperature 98.1 F Pulse Rate 83 91 74 Respiratory 18 18 18 Rate Blood Pressure 117/82 134/82 153/99 O2 Sat by Pulse 100 96 96 Oximetry 07/27/21 14:59 Temperature 97.8 F Pulse Rate 80 Respiratory 16 Rate Blood Pressure 137/86 O2 Sat by Pulse 96 Oximetry Medical Decision Making - Medical Decision Making I did discuss findings with the patient family as well as with Dr. Bailey. Patient will be admitted for inpatient evaluation treatment rehydration and IV antibiotics - Lab Data Result diagrams: 07/27/21 11:53 07/27/21 11:53 Lab Results 07/27/21 07/27/21 Range/Units 11:53 11:53 WBC 13.2 H (3.8-10.6) k/uL RBC 4.03 L (4.30-5.90) m/uL Hgb 12.1 L (13.0-17.5) gm/dL Hct 37.5 L (39.0-53.0) % MCV 93.1 (80.0-100.0) fL MCH 30.1 (25.0-35.0) pg MCHC 32.3 (31.0-37.0) g/dL RDW 16.3 H (11.5-15.5) % Plt Count 432 (150-450) k/uL MPV 7.6 Neutrophils % 87 % Lymphocytes % 8 % Monocytes % 4 % Eosinophils % 1 % Basophils % 0 % Neutrophils # 11.5 H (1.3-7.7) k/uL Lymphocytes # 1.0 (1.0-4.8) k/uL Monocytes # 0.5 (0-1.0) k/uL Eosinophils # 0.1 (0-0.7) k/uL Basophils # 0.0 (0-0.2) k/uL Anisocytosis Slight Sodium 138 (137-145) mmol/L Potassium 4.2 (3.5-5.1) mmol/L Chloride 103 (98-107) mmol/L Carbon Dioxide 23 (22-30) mmol/L Anion Gap 12 mmol/L BUN 19 (9-20) mg/dL Creatinine 0.90 (0.66-1.25) mg/dL Est GFR (CKD-EPI)AfAm >90 (>60 ml/min/1.73 sqM) Est GFR (CKD-EPI)NonAf 87 (>60 ml/min/1.73 sqM) Glucose 117 H (74-99) mg/dL Calcium 9.1 (8.4-10.2) mg/dL Magnesium 1.9 (1.6-2.3) mg/dL Total Bilirubin 0.5 (0.2-1.3) mg/dL AST 14 L (17-59) U/L ALT 6 (4-49) U/L Alkaline Phosphatase 114 (38-126) U/L Total Protein 6.0 L (6.3-8.2) g/dL Albumin 2.8 L (3.5-5.0) g/dL Lipase 134 (23-300) U/L - Radiology Data Radiology results: report reviewed (Imaging reviewed as well as report evidence of right lower lobe infiltrate and atelectasis along with a small effusion. Evidence of ileus on x-ray), image reviewed Disposition Clinical Impression: Right lower lobe pneumonia, Nausea & vomiting, Dehydration, Ileus, unspecified, History of stomach cancer Disposition: ADMITTED IP TO THIS [facility] Condition: Fair Referrals: Timo Cheung MD [Primary Care Provider] - 1-2 days
[2021-07-27 12:17] LABS: Anisocytosis Slight; Basophils % (A) 0 %; Eosinophils # (A) 0.1 k/uL (0-0.7); Eosinophils % (A) 1 %; HCT 37.5 % (39.0-53.0); HGB 12.1 gm/dL (13.0-17.5); Lymphocytes % (A) 8 %; MCH 30.1 pg (25.0-35.0); MCHC 32.3 g/dL (31.0-37.0); MCV 93.1 fL (80.0-100.0); Mean Platelet Volume 7.6; Monocytes # (A) 0.5 k/uL (0-1.0); Monocytes % (A) 4 %; Neutrophils # (A) 11.5 k/uL (1.3-7.7); Neutrophils % (A) 87 %; Platelet Count 432 k/uL (150-450); RBC 4.03 m/uL (4.30-5.90); RDW 16.3 % (11.5-15.5); WBC 13.2 k/uL (3.8-10.6)
[2021-07-27 12:28] LABS: ALT 6 U/L (4-49); AST 14 U/L (17-59); African American GFR (CKD) >90 (>60 ml/min/1.73 sqM); Albumin 2.8 g/dL (3.5-5.0); Alkaline Phosphatase 114 U/L (38-126); Anion Gap 12 mmol/L; Blood Urea Nitrogen 19 mg/dL (9-20); Calcium 9.1 mg/dL (8.4-10.2); Carbon Dioxide 23 mmol/L (22-30); Chloride 103 mmol/L (98-107); Glucose 117 mg/dL (74-99); Lipase 134 U/L (23-300); Magnesium 1.9 mg/dL (1.6-2.3); Non-African American GFR(CKD) 87 (>60 ml/min/1.73 sqM); Potassium 4.2 mmol/L (3.5-5.1); Sodium 138 mmol/L (137-145); Total Bilirubin 0.5 mg/dL (0.2-1.3)
[2021-07-27] MEDS ORDERED: ONDANSETRON 4 MG/2 ML VIAL IVP STA (13:38)
--- NOTE | 2021-07-27 13:58 | XR ---
KUB HISTORY: Pain, vomiting, weakness Frontal KUB submitted on 2 images and correlated to prior CT 05/26/2021 Suspect there is pleural effusion present on the right, there is blunting PHRENIC angle, bibasilar de nsity is present. There are air-fluid levels with gas-filled loops of small bowel in the left hemiabd omen. Overall increased density within the abdomen suggests underlying ascites. IMPRESSION: Correlate to exclude small bowel obstruction versus ileus or enteritis, there may be basi lar effusions right greater than left, associated atelectasis, difficult to exclude pneumonia. Suspec t ascites.
--- NOTE | 2021-07-27 14:04 | XR ---
EXAMINATION TYPE: XR chest 2V DATE OF EXAM: 07/27/2021 COMPARISON: Chest x-ray 07/07/[address] 07/09/2021 HISTORY: Pain, weakness, shortness of breath and vomiting TECHNIQUE: Frontal and lateral views of the chest are obtained. FINDINGS: There has been interval regression of abnormal density at the right lung base, blunting of the right gastric angle. The port has been placed in the right pectoral region, distal to the cathet er is overlying the superior vena cava. There is no evident pneumothorax. Cardiac mediastinal silhoue tte shows a similar appearance. IMPRESSION: Probable basilar atelectasis and associated effusion, correlate to exclude pneumonia. Th ere is underlying emphysema.
[2021-07-27] MEDS ORDERED: AZITHROMYCIN 500 MG in SODIUM CHLORIDE 0.9% 250 ML IVPB STA (15:07)
[2021-07-27] MEDS ORDERED: PNEUMONIA PROTOCOL UTILIZED 1 EACH MISC PO PRN (15:07)
[2021-07-27] MEDS ORDERED: MORPHINE SULFATE 4 MG/ML SYRINGE IV PRN (15:33)
[2021-07-27] MEDS ORDERED: ACETAMINOPHEN TAB 325 MG TAB PO PRN (15:33)
[2021-07-27] MEDS ORDERED: NALOXONE 0.4 MG/ML 1 ML VIAL IV PRN (15:33)
[2021-07-27] MEDS: SODIUM CHLORIDE 0.9% 1,000 ML IV SCH ×2 (16:05→21:18)
[2021-07-27] MEDS: HYDROcodone/APAP 5-325MG 1 EACH TAB PO PRN (16:05)
--- NOTE | 2021-07-27 16:18 | P.HPIM ---
<Alcon Becerra - Last Filed: 07/27/21 15:53> History of Present Illness H&P Date: 07/27/21 History of Presenting Illness: Patient is a very pleasant 70-year-old male with past medical history of hypertension, hyperlipidemia, GERD, and recently diagnosed stomach cancer with metastasis. He presented to the hospital with a chief complaint of intractable nausea and vomiting. Patient reports this began approximately 3 days ago when he began to feel fatigued, nauseous, and decreased appetite and states that over the past 24 hours has had persistent nausea and vomiting accompanied by previous reported weakness and fatigue as well as dizziness and lightheadedness upon standing. Patient states he is currently being worked up by Dr. Gunn with plans to possibly begin chemotherapy for his stomach cancer with metastasis. Patient reports that he had a chemo port placed last week, but states they have not discussed treatment plan at this time. Patient's at bedside reports that they have another appointment next week for education/teaching regarding care of port. Patient states he has also been receiving biweekly paracentesis secondary to extensive abdominal ascites resulting from this metastatic cancer. Patient reports last paracentesis 07/13/21 with next scheduled paracentesis 08/02/21. Patient denies having any other complaints including recent fevers, headache, chills, diaphoresis, chest pain, palpitations, shortness of breath at rest, cough or congestion, sore throat or difficulty with swallowing, or experiencing any new onset or changes in his abdominal pain/discomfort. He continues to report feeling his "usual" abdominal fullness and distention along with shortness of breath with exertion, but denies any changes in this pain or discomfort. In the emergency department, patient was seen and fully evaluated. KUB showing air-fluid levels with gas-filled loops of small bowel in the left hemiabdomen cannot exclude small bowel obstruction versus ileus versus enteritis with suspected ascites. Chest x-ray revealing probable basilar atelectasis and associated effusion with underlying emphysema. Labs: CBC revealing mild leukocytosis with WBC count of 13.2, stable normocytic normochromic anemia with hemoglobin of 12.1, and hypoalbuminemia with albumin of 2.8. Vital signs stable. Patient was given IV antibiotics: Rocephin and admitted under our services for intractable nausea and vomiting with consultation to GI and oncology. Review of systems: Pertinent positives and negatives as discussed in HPI, a complete review of systems was performed and all other systems are negative. Physical exam: Vital signs reviewed and stable. General: Nontoxic, no acute distress, very thin/frail and chronically ill appearing. Derm: Skin warm and dry, normal coloration for ethnicity. Port to right chest, healing incision with no surrounding erythema, edema, or drainage. Head: Atraumatic, normocephalic and symmetric. Eyes: EOMs intact, no lid lag, and anicteric sclera Mouth: no lip lesions, mucus membranes dry Cardiovascular: regular rate and rhythm with normal S1S2, no murmur, positive posterior tibial pulses bilaterally, and cap refill < 2 seconds. Lungs: Respirations even, regular, and unlabored on room air. Lungs CTA bilaterally, no rhonchi, no rales, no wheezing, and no accessory muscle usage. Abdominal: Distended cirrhotic abdomen, taught, diffuse tenderness upon palpation. Ext: ROM intact. No gross muscle atrophy, no edema, no contractures Neuro: Speech clear, face symmetrical and CN II-XII grossly intact with no noted focal neuro deficits Psych: Alert and oriented to person, place, time, and situation. Appropriate and pleasant affect. Assessment and Plan of Care: Intractable nausea and vomiting Stomach cancer with metastasis Small bowel ileus, concerns for possible SBO Vs enteritis Abdominal ascites -Patient admitted under our services with consultation to GI and oncology. -KUB showing air-fluid levels with gas-filled loops of small bowel in the left hemiabdomen cannot exclude small bowel obstruction versus ileus versus enteritis with suspected ascites. -We will provide symptomatic care and pain management. -Gentle hydration with IV fluids. -Continue IV antibiotics with: Rocephin 2 g daily -Consultation to oncology, appreciate further recommendations -Consultation to GI, appreciate further recommendations -Anti-emetics with Compazine -Pro-calcitonin -Blood cultures -Continued close monitoring with repeat a.m. labs. Basilar atelectasis Emphysema/COPD -Chest x-ray revealing probable basilar atelectasis and associated effusion with underlying emphysema. -Encourage use of incentive spirometry 10-15 times hourly while awake. -Monitor for any development of cough or congestion. Hypertension Monitor vital signs. Patient reports being taken off of antihypertensive medications one week ago. Normocytic normochromic anemia, stable -We will continue to monitor with repeat a.m. labs, currently hemoglobin stable at 12.1. Hypoalbuminemia -Albumin 2.8, likely secondary to moderate ascites and recent biweekly paracentesis. We will continue to monitor closely. GERD GI prophylaxis with Protonix 40 mg IVP daily. The patient is admitted with an anticipated greater than 2 midnight stay for evaluation of intractable nausea and vomiting, small bowel ileus with concerns of possible SBO versus enteritis. CODE STATUS: Full code DVT prophylaxis: Heparin Discussed with: Patient, patient's , and RN Anticipated discharge date: Clinical course to determine Anticipated discharge place: Home A total of 50 minutes was spent on the care of this complex patient more than 50% of the time was spent in counseling and care coordination. Past Medical History Past Medical History: Cancer, CVA/TIA, GERD/Reflux, Hyperlipidemia, Hypertension Additional Past Medical History / Comment(s): Severe B12 deficiency, allergic rhinitis, stomach cancer History of Any Multi-Drug Resistant Organisms: None Reported Past Surgical History: Cholecystectomy Additional Past Surgical History / Comment(s): [facility] right chest, EGD with biopsy that showed stomach cancer June 28 but has not yet started chemotherapy, paracentesis times 2 with last one July 13 6.6 liters removed Past Anesthesia/Blood Transfusion Reactions: No Reported Reaction Additional Past Anesthesia/Blood Transfusion Reaction / Comment(s): no previous blood transfusion Past Psychological History: No Psychological Hx Reported Smoking Status: Former smoker Past Alcohol Use History: Heavy Past Drug Use History: None Reported - Past Family History Father Family Medical History: Congestive Heart Failure (CHF) Additional Family Medical History / Comment(s): Father at the age of 82 yrs from CHF. Mother Family Medical History: No Reported History Additional Family Medical History / Comment(s): Mother was healthy, not on any medications and lived to be 92 yrs old. Medications and Allergies Home Medications Medication Instructions Recorded Confirmed Type Atorvastatin [Lipitor] 80 mg PO HS #90 tab 03/18/19 07/27/21 Rx Clopidogrel [Plavix] 75 mg PO DAILY #90 tab 03/18/19 07/27/21 Rx carvediloL [Coreg] 3.125 mg PO BID-W/MEALS #180 tab 03/18/19 07/27/21 Rx lisinopriL [Zestril] 5 mg PO DAILY 07/07/21 07/27/21 History Allergies Allergy/AdvReac Type Severity Reaction Status Date / Time No Known Allergies Allergy Verified 07/27/21 11:07 Physical Exam Vitals: Vital Signs Temp Pulse Resp BP Pulse Ox 07/27/21 14:59 97.8 F 80 16 137/86 96 07/27/21 13:53 74 18 153/99 96 07/27/21 11:57 91 18 134/82 96 07/27/21 10:09 98.1 F 83 18 117/82 100 Intake and Output 07/27/21 07/27/21 07/27/21 06:59 14:59 22:59 Other: Voiding Method Toilet Weight 77.111 kg Results CBC & Chem 7: 07/27/21 11:53 07/27/21 11:53 Labs: Abnormal Lab Results - Last 24 Hours (Table) 07/27/21 07/27/21 Range/Units 11:53 11:53 WBC 13.2 H (3.8-10.6) k/uL RBC 4.03 L (4.30-5.90) m/uL Hgb 12.1 L (13.0-17.5) gm/dL Hct 37.5 L (39.0-53.0) % RDW 16.3 H (11.5-15.5) % Neutrophils # 11.5 H (1.3-7.7) k/uL Glucose 117 H (74-99) mg/dL AST 14 L (17-59) U/L Total Protein 6.0 L (6.3-8.2) g/dL Albumin 2.8 L (3.5-5.0) g/dL <Swetha Alonzo - Last Filed: 07/28/21 21:35> History of Present Illness Alcon Becerra NP rendered care for this patient independently, reviewed the findings and plan as documented in the note above. I did not physically speak with or examine the patient on this date. Physical Exam Osteopathic Statement: *. No significant issues noted on an osteopathic structural exam other than those noted in the History and Physical/Consult. Vitals: Vital Signs Temp Pulse Pulse Resp BP Pulse Ox 07/28/21 20:00 83 74 17 07/28/21 19:06 98.1 F 74 17 122/72 93 L 07/28/21 17:30 56 L 133/76 93 L 07/28/21 17:15 102 H 133/80 07/28/21 17:00 59 L 134/93 07/28/21 16:45 75 143/84 92 L 07/28/21 16:30 69 142/88 07/28/21 16:15 69 133/82 07/28/21 16:00 74 133/80 92 L 07/28/21 15:45 70 132/81 90 L 07/28/21 15:30 97.6 F 86 17 129/81 92 L 07/28/21 15:15 83 18 134/78 93 L 07/28/21 15:00 87 16 122/62 91 L 07/28/21 14:55 91 17 118/59 91 L 07/28/21 14:40 85 16 144/70 92 L 07/28/21 14:25 80 16 137/82 92 L 07/28/21 14:13 78 14 151/95 92 L 07/28/21 14:07 85 16 155/90 90 L 07/28/21 07:03 97.7 F 73 18 123/75 95 07/28/21 02:00 98.0 F 75 16 116/65 93 L Intake and Output 07/28/21 07/28/21 07/28/21 06:59 14:59 22:59 Intake Total 240 Balance 240 Intake: Oral 240 Other: Voiding Method Toilet Results CBC & Chem 7: 07/28/21 07:27 07/27/21 11:53 Labs: Abnormal Lab Results - Last 24 Hours (Table) 07/27/21 07/27/21 07/28/21 Range/Units 15:42 16:04 07:27 RBC 3.70 L (4.40-5.60) X 10*6/uL Hgb 10.7 L (13.0-17.0) g/dL Hct 35.3 L (39.6-50.0) % MCHC 30.3 L (32.0-37.0) g/dL RDW 17.1 H (11.5-14.5) % Immature Gran # 0.08 H (0.00-0.04) X 10*3/uL Procalcitonin 0.19 H (0.02-0.09) ng/mL Ur Specific [place] >1.050 H (1.001-1.035) Urine Protein 1+ H (Negative) Urine Ketones 2+ H (Negative) Urine Bilirubin 1+ H (Negative) Urine Mucus Moderate H (None) /hpf Microbiology - Last 24 Hours (Table) 07/27/21 16:04 Blood Culture - Preliminary Blood No Growth after 24 hours 07/27/21 15:50 Blood Culture - Preliminary Blood No Growth after 24 hours 07/28/21 11:15 Sputum Culture - Preliminary Sputum
[2021-07-27 17:29] LABS: Appearance,Urine Clear (Clear); Bilirubin,Urine 2+ (Negative); Blood,Urine Negative (Negative); Calcium Oxalate Crystals,Urine Rare /hpf; Color,Urine Yellow; Glucose,Urine (UA) Negative (Negative); Hyaline Casts,Urine 5 /lpf (0-2); Ketones,Urine 3+ (Negative); Leukocyte Esterase,Urine Negative (Negative); Mucus,Urine Many /hpf; Nitrite,Urine Negative (Negative); Protein,Urine 2+ (Negative); RBC,Urine 1 /hpf (0-5); Specific Gravity,Urine 1.034 (1.001-1.035); Squamous Epithelial Cell,Urine <1 /hpf (0-4); WBC,Urine 2 /hpf (0-5)
[2021-07-27] MEDS: HEPARIN SODIUM,PORCINE/PF 5,000 UNIT/0.5 ML SYRINGE SQ SCH (21:18)
--- NOTE | 2021-07-27 23:57 | CT ---
EXAMINATION TYPE: CT abdomen pelvis w con DATE OF EXAM: 07/27/2021 COMPARISON: PET CT scan 07/01/2021 HISTORY: abd pain with N&V. recently dx with stomach cancer CT DLP: 1044.1 mGycm Automated exposure control for dose reduction was used. CONTRAST: Performed with IV Contrast, patient injected with 100 mL of Isovue 300. Images obtained from the diaphragm to the floor the pelvis with IV contrast. There are moderate bilateral pleural effusions. Heart size is normal. There is small pericardial effu hilaria. There is large amount of abdominal ascites. There is no evidence of splenic mass. There is no evidenc e of pancreatic mass. Stomach is intact. Liver is slightly irregular. Cirrhosis is possible. Gallbladder is not seen. The bile ducts are not dilated. There is no adrenal mass. Kidneys show satisfactory contrast opacification. There is no hydronephrosi s. There is some presacral edema. There is no inguinal hernia. Bladder distends smoothly. There is no pelvic mass. There is no evidence of free air. Appendix not definitely seen. No sign of thickened appendix. There are some distended small bowel loops with fluid levels that is suggestive of ileus. There is opacific ation of the portal vein and the inferior vena cava. These vessels are small. There is no sign of thr ombosis. The lumbar vertebra have normal alignment. There is no compression fracture. Posterior elements are i ntact. The hip joints are intact. IMPRESSION: Bilateral moderate pleural effusions increased compared to old exam. Massive abdominal ascites fluid not significantly different than old exam. There is evidence for some small bowel ileus which is incr eased compared to old exam. The portal vein and inferior vena cava are small that could relate to hypovolemia.
[2021-07-28] MEDS: PANTOPRAZOLE 40 MG/10 ML VIAL IVP SCH (07:43)
[2021-07-28] MEDS: PROCHLORPERAZINE INJ 10 MG/2 ML VIAL IVP PRN (07:43)
[2021-07-28] MEDS: HEPARIN SODIUM,PORCINE/PF 5,000 UNIT/0.5 ML SYRINGE SQ SCH ×3 (07:44→20:34)
--- NOTE | 2021-07-28 08:03 | XR ---
EXAMINATION TYPE: XR chest 1V portable DATE OF EXAM: 07/28/2021 COMPARISON: 07/27/2020 HISTORY: Cough TECHNIQUE: Single frontal view of the chest is obtained. FINDINGS: Bibasilar infiltrate and small pleural effusion. Mediport stable. No pneumothorax. Underly ing COPD suggested. Heart size normal. Is a 7 mm nodule overlying the lateral margin the left midlung . IMPRESSION: Interval mild progression of bibasilar infiltrate small effusion.
[2021-07-28 11:18] LABS: Basophils # (A) 0.04 X 10*3/uL (0.00-0.10); Basophils % (A) 0.4 %; Eosinophils # (A) 0.14 X 10*3/uL (0.04-0.35); Eosinophils % (A) 1.6 %; HCT 35.3 % (39.6-50.0); HGB 10.7 g/dL (13.0-17.0); Lymphocytes # (A) 0.99 X 10*3/uL (0.90-5.00); MCH 28.9 pg (27.0-32.0); MCHC 30.3 g/dL (32.0-37.0); MCV 95.4 fL (80.0-97.0); Mean Platelet Volume 10.4 fL (9.5-12.2); Monocytes # (A) 0.61 X 10*3/uL (0.20-1.00); Monocytes % (A) 6.8 %; Neutrophils # (A) 7.12 X 10*3/uL (1.80-7.70); Neutrophils % (A) 79.3 %; Platelet Count 347 X 10*3/uL (140-440); RDW 17.1 % (11.5-14.5); WBC 8.98 X 10*3/uL (4.50-10.00)
[2021-07-28 11:43] LABS: Prothrombin Time 10.8 sec (9.0-12.0)
[2021-07-28] MEDS: SODIUM CHLORIDE 0.9% 1,000 ML IV SCH ×2 (11:49→20:35)
[2021-07-28 14:02] LABS: Magnesium 1.9 mg/dL (1.5-2.4)
--- NOTE | 2021-07-28 14:18 | P.CONS ---
History of Present Illness - Reason for Consult Consult date: 07/27/21 Recent Diagnosis Gastric Cancer Requesting physician: Alcon Becerra - Chief Complaint Nausea and vomiting and diarrhea - History of Present Illness Mr. Lundberg is a pleasant 70 year old patient who was recently seen in our office for initial consultation with Dr. Velazquez for new diagnosis of metastatic Gastric Cancer. Symptoms began in Early March of this year when he started to notice difficulty with swallowing, lack of appetite, abdominal distention, and unintentional weight loss. CT Chest in May did not reveal any metastatic disease in lungs, CT abdomen and Pelvis in May revealed abdominal ascites and concern of peritoneal carcinamatosis, which prompted paracentesis. Paracentesis cytology was negative x2. On 06/30/21 he under went EGD. During exam a lesion in body of stomach was identified and biopsied. Pathology revealed invasive adenocarcarcinoma, signet cells. His pathology has been sent for further testing, [id number] is negative. MSI and PDL1 are still pending. He was scheduled for chemoteach tomorrow in office for FOLFOX and Opdivo. He was schedu led for Mediport placement with Dr. Lemon and day one of chemotherapy and immune therapy was scheduled for 08/01/21. He now presents to emergency Review of Systems All systems: negative Constitutional: Reports as per HPI Past Medical History Past Medical History: Cancer, CVA/TIA, GERD/Reflux, Hyperlipidemia, Hypertension Additional Past Medical History / Comment(s): Severe B12 deficiency, allergic rhinitis, stomach cancer History of Any Multi-Drug Resistant Organisms: None Reported Past Surgical History: Cholecystectomy Additional Past Surgical History / Comment(s): mediport right chest, EGD with biopsy that showed stomach cancer June 28 but has not yet started chemotherapy, paracentesis times 2 with last one July 13 6.6 liters removed Past Anesthesia/Blood Transfusion Reactions: No Reported Reaction Additional Past Anesthesia/Blood Transfusion Reaction / Comm: no previous blood transfusion Past Psychological History: No Psychological Hx Reported Additional Psychological History / Comment(s): Pt resides with his spouse. He is independent. He is retired. Smoking Status: Former smoker Past Alcohol Use History: Heavy Additional Past Alcohol Use History / Comment(s): Pt started smoking as a teen and quit in February of 2019. Heavy drinker in the past. Past Drug Use History: None Reported Additional Drug Use History / Comment(s): Pt used to smoke marijuana on occasion. - Past Family History Father Family Medical History: Congestive Heart Failure (CHF) Additional Family Medical History / Comment(s): Father at the age of 82 yrs from CHF. Mother Family Medical History: No Reported History Additional Family Medical History / Comment(s): Mother was healthy, not on any medications and lived to be 92 yrs old. Medications and Allergies Home Medications Medication Instructions Recorded Confirmed Type Atorvastatin [Lipitor] 80 mg PO HS #90 tab 03/18/19 07/27/21 Rx Clopidogrel [Plavix] 75 mg PO DAILY #90 tab 03/18/19 07/27/21 Rx carvediloL [Coreg] 3.125 mg PO BID-W/MEALS #180 tab 03/18/19 07/27/21 Rx lisinopriL [Zestril] 5 mg PO DAILY 07/07/21 07/27/21 History Allergies Allergy/AdvReac Type Severity Reaction Status Date / Time No Known Allergies Allergy Verified 07/27/21 11:07 Physical Exam Vitals: Vital Signs Temp Pulse Pulse Resp BP BP Pulse Ox 07/27/21 20:00 16 07/27/21 19:42 98.0 F 77 16 120/77 96 07/27/21 14:59 97.8 F 80 16 137/86 96 07/27/21 13:53 74 18 153/99 96 07/27/21 11:57 91 18 134/82 96 07/27/21 10:09 98.1 F 83 18 117/82 100 Intake and Output 07/27/21 07/27/21 07/27/21 06:59 14:59 22:59 Intake Total 1350 Balance 1350 Intake: Intake, IV Titration 1350 Amount Azithromycin 500 mg In 250 Sodium Chloride 0.9% 250 ml @ 250 mls/hr IVPB ONCE STA Rx#:[id number] Sodium Chloride 0.9% 1, 1000 000 ml @ 75 mls/hr IV . [id number] [facility] Rx#:[id number] cefTRIAXone 2 gm In 50 Sodium Chloride 0.9% 50 ml @ 100 mls/hr IVPB ONCE STA Rx#:[id number] cefTRIAXone 2 gm In 50 Sodium Chloride 0.9% 50 ml @ 100 mls/hr IVPB Q24H [facility] Rx#:[id number] Other: Voiding Method Toilet Weight 77.111 kg 77.111 kg - Constitutional General appearance: cooperative, no acute distress - EENT Eyes: EOMI ENT: NA/AT - Neck Neck: normal ROM - Respiratory Respiratory: bilateral: diminished - Cardiovascular Rhythm: regularly irregular - Gastrointestinal General gastrointestinal: soft, tenderness - Integumentary Integumentary: pale - Musculoskeletal Musculoskeletal: generalized weakness - Psychiatric Psychiatric: A&O x's 3 Results CBC & Chem 7: 07/28/21 07:27 07/27/21 11:53 Labs: Abnormal Lab Results - Last 24 Hours (Table) 07/27/21 07/27/21 07/27/21 Range/Units 11:53 11:53 17:18 WBC 13.2 H (3.8-10.6) k/uL RBC 4.03 L (4.30-5.90) m/uL Hgb 12.1 L (13.0-17.5) gm/dL Hct 37.5 L (39.0-53.0) % RDW 16.3 H (11.5-15.5) % Neutrophils # 11.5 H (1.3-7.7) k/uL Glucose 117 H (74-99) mg/dL AST 14 L (17-59) U/L Total Protein 6.0 L (6.3-8.2) g/dL Albumin 2.8 L (3.5-5.0) g/dL Urine Protein 2+ H (Negative) Urine Ketones 3+ H (Negative) Urine Bilirubin 2+ H (Negative) Calcium Oxalate Crystal Rare H (None) /hpf Hyaline Casts 5 H (0-2) /lpf Urine Mucus Many H (None) /hpf Assessment and Plan (1) Gastric adenocarcinoma Current Visit: Yes Status: Acute Code(s): C16.9 - MALIGNANT NEOPLASM OF STOMACH, UNSPECIFIED SNOMED Code(s): 707372925 Plan: New Diagnosis of Gastric Cancer - Patient admitted with persistent nausea and vomiting, denies relationship to phlegm - Gastric cancer with likely carcinamatosis - concern of tumor burden resulting in ileus/obstruction - CT abdomen and pelvis to re-evalaute (last in early May prior to diagnosis) - He has not begun treatment yet, is suppose to start 08/01/21, MP with Dr. Lemon and teach 11/4. - If N/V persists without identified etiology will need to consider further evaluation for metastatic disease to brain (less common await supportive care measures, NPO bowel rest and CT evaluation). - Therapeutic Paracentesis will also be ordered. Will also check baseline labs for immune therapy which is planned to be given with chemotherapy FOLFOX Physician Attest: I have completed the full history and physical and agree with above dictation, dictated as a ascribe.
--- NOTE | 2021-07-28 15:17 | P.CONS ---
History of Present Illness - Reason for Consult Consult date: 07/28/21 Intractable nausea and vomiting, ileus versus small bowel obstruction Requesting physician: Alcon Becerra - Chief Complaint Nausea and vomiting, weakness - History of Present Illness This a 70-year-old male who presented to the emergency department with complaints of nausea vomiting and weakness. Yesterday apparently the patient had complaints of vomiting multiple times throughout the day. States he felt very weak and dehydrated and came to the emergency department for further evaluation. He was recently diagnosed with a gastric cancer with possible meniscal tear stenosis approximately 4 weeks ago By [facility] gastroenterology. States he had an EGD for decreased appetite and weight loss up to 50 pounds since March, therefore he underwent an EGD with with biopsy reporting gastric cancer. Patient has been following with Dr. Velazquez and has a port that was placed recently for impending chemotherapy. Patient states he's been started chemotherapy yet. He also has recently diagnosed with ascites within the last 6 weeks and has undergone paracentesis with fluid studies that showed no concern for malignant cells. Patient does have a past medical history of significant alcohol abuse which for which he states he has been heavy drinker for multiple years and quit drinking 4-6 weeks ago. His last paracentesis was on 07/13/2021 was 6.6 L of fluid removed. Gastroenterology was consulted in regards to his nausea and vomiting. Today he states he has not had any further nausea or vomiting. He is tolerating clear liquid diet. He states that his bowel movements have been normal and he goes daily. Last bowel movement was yesterday. CT of abdomen and pelvis showed bilateral moderate pleural effusion increased compared to old exam. Massive abdominal ascites fluid not significantly different from old exam. There is evidence of some small bowel ileus which is increased compared to old exam. Patient states he has no abdominal pain, other than some abdominal distention. No further nausea or vomiting, has been afebrile. On admission he did have mild leukocytosis but repeat labs today show WBC 8.9 hemoglobin 10.7 hematocrit 35 platelet count 347, 000 INR 1.0 total bilirubin 0.5 AST 14 ALT 6 alkaline phosphatase 114 amylase 41 lipase 39 Review of Systems REVIEW OF SYSTEMS: CARDIOPULMONARY: No chest pain or shortness of breath. Gastrointestinal: No abdominal pain. Multiple episodes of vomiting yesterday, none today. No hematemesis, coffee-ground emesis. No rectal bleeding, or melena. GENITOURINARY: No dysuria or hematuria. MUSCULOSKELETAL: Reports normal range of motion., Joint pain. SKIN: No rashes. No jaundice. ENDOCRINE: No chills, fevers. No polydipsia or polyuria. PSYCHIATRIC: Unremarkable. NEUROLOGY: No change in mental status. Denies dizziness, headache. ENT: Vision unremarkable. CONSTITUTIONAL: Patient has had excessive weight loss up to 50 pounds over the last couple months. No fever, chills, night sweats. Past Medical History Past Medical History: Cancer, CVA/TIA, GERD/Reflux, Hyperlipidemia, Hypertension Additional Past Medical History / Comment(s): Severe B12 deficiency, allergic rhinitis, stomach cancer History of Any Multi-Drug Resistant Organisms: None Reported Past Surgical History: Cholecystectomy Additional Past Surgical History / Comment(s): mediport right chest, EGD with biopsy that showed stomach cancer June 28 but has not yet started chemotherapy, paracentesis times 2 with last one July 13 6.6 liters removed Past Anesthesia/Blood Transfusion Reactions: No Reported Reaction Additional Past Anesthesia/Blood Transfusion Reaction / Comm: no previous blood transfusion Past Psychological History: No Psychological Hx Reported Additional Psychological History / Comment(s): Pt resides with his spouse. He is independent. He is retired. Smoking Status: Former smoker Past Alcohol Use History: Heavy Additional Past Alcohol Use History / Comment(s): Pt started smoking as a teen and quit in February of 2019. Heavy drinker in the past. Past Drug Use History: None Reported Additional Drug Use History / Comment(s): Pt used to smoke marijuana on occasion. - Past Family History Father Family Medical History: Congestive Heart Failure (CHF) Additional Family Medical History / Comment(s): Father at the age of 82 yrs from CHF. Mother Family Medical History: No Reported History Additional Family Medical History / Comment(s): Mother was healthy, not on any medications and lived to be 92 yrs old. Medications and Allergies Home Medications Medication Instructions Recorded Confirmed Type Atorvastatin [Lipitor] 80 mg PO HS #90 tab 03/18/19 07/27/21 Rx Clopidogrel [Plavix] 75 mg PO DAILY #90 tab 03/18/19 07/27/21 Rx carvediloL [Coreg] 3.125 mg PO BID-W/MEALS #180 tab 03/18/19 07/27/21 Rx lisinopriL [Zestril] 5 mg PO DAILY 07/07/21 07/27/21 History Allergies Allergy/AdvReac Type Severity Reaction Status Date / Time No Known Allergies Allergy Verified 07/27/21 11:07 Physical Exam Vitals: Vital Signs Temp Pulse Pulse Resp BP BP Pulse Ox 07/28/21 07:03 97.7 F 73 18 123/75 95 07/28/21 02:00 98.0 F 75 16 116/65 93 L 07/27/21 20:00 16 07/27/21 19:42 98.0 F 77 16 120/77 96 07/27/21 14:59 97.8 F 80 16 137/86 96 07/27/21 13:53 74 18 153/99 96 07/27/21 11:57 91 18 134/82 96 07/27/21 10:09 98.1 F 83 18 117/82 100 Intake and Output 07/27/21 07/28/21 07/28/21 22:59 06:59 14:59 Intake Total 1350 Balance 1350 Intake: Intake, IV Titration 1350 Amount Azithromycin 500 mg In 250 Sodium Chloride 0.9% 250 ml @ 250 mls/hr IVPB ONCE STA Rx#:[id number] Sodium Chloride 0.9% 1, 1000 000 ml @ 75 mls/hr IV . [id number] [facility] Rx#:[id number] cefTRIAXone 2 gm In 50 Sodium Chloride 0.9% 50 ml @ 100 mls/hr IVPB ONCE STA Rx#:[id number] cefTRIAXone 2 gm In 50 Sodium Chloride 0.9% 50 ml @ 100 mls/hr IVPB Q24H [facility] Rx#:[id number] Other: Weight 77.111 kg General appearance: The patient is alert, oriented, appears in no acute distress. Thin. HET: Head is normocephalic and atraumatic. Conjunctiva pink. Sclera anicteric. Neck: Supple without lymphadenopathy. Trachea midline. Heart: S1 S2. Regular rate and rhythm. Lungs: Clear to auscultation. Abdomen: Soft, thin, nontender, nondistended with bowel sounds. No guarding or rigidity. Skin: No rashes. No jaundice. Extremities: Normal skin color and turgor. No pedal edema. Neurological: No focal deficits. Alert and oriented x3. Results CBC & Chem 7: 07/28/21 07:27 07/27/21 11:53 Labs: Abnormal Lab Results - Last 24 Hours (Table) 07/27/21 07/27/21 07/27/21 Range/Units 11:53 11:53 16:04 WBC 13.2 H (3.8-10.6) k/uL RBC 4.03 L (4.30-5.90) m/uL Hgb 12.1 L (13.0-17.5) gm/dL Hct 37.5 L (39.0-53.0) % RDW 16.3 H (11.5-15.5) % Neutrophils # 11.5 H (1.3-7.7) k/uL Glucose 117 H (74-99) mg/dL AST 14 L (17-59) U/L Total Protein 6.0 L (6.3-8.2) g/dL Albumin 2.8 L (3.5-5.0) g/dL Procalcitonin 0.19 H (0.02-0.09) ng/mL Urine Protein (Negative) Urine Ketones (Negative) Urine Bilirubin (Negative) Calcium Oxalate Crystal (None) /hpf Hyaline Casts (0-2) /lpf Urine Mucus (None) /hpf 07/27/21 Range/Units 17:18 WBC (3.8-10.6) k/uL RBC (4.30-5.90) m/uL Hgb (13.0-17.5) gm/dL Hct (39.0-53.0) % RDW (11.5-15.5) % Neutrophils # (1.3-7.7) k/uL Glucose (74-99) mg/dL AST (17-59) U/L Total Protein (6.3-8.2) g/dL Albumin (3.5-5.0) g/dL Procalcitonin (0.02-0.09) ng/mL Urine Protein 2+ H (Negative) Urine Ketones 3+ H (Negative) Urine Bilirubin 2+ H (Negative) Calcium Oxalate Crystal Rare H (None) /hpf Hyaline Casts 5 H (0-2) /lpf Urine Mucus Many H (None) /hpf CT scan - abdomen: report reviewed Assessment and Plan (1) Nausea & vomiting Narrative/Plan: 70-year-old male who presented to the hospital with weakness, intractable nausea and vomiting and dehydration. Patient was recently diagnosed with gastric cancer approximately 4 weeks ago. Apparently patient had been following with [facility] [employer] technical [employer] and underwent an EGD 4-5 weeks ago for loss of appetite and significant weight loss. Biopsies were apparently consistent with a gastric adenocarcinoma. He is currently under the care of Dr. Velazquez and plan is to start chemotherapy. Yesterday he had intractable nausea and vomiting states that he had vomited several times throughout the day. The nausea and vomiting has improved. He denied any coffee-ground or hematemesis. Patient does have a significant history of alcohol abuse for which he states he quit drinking within the last few weeks. CT of the abdomen and pelvis showed some concerns for ileus as well as a moderate amount of ascites. Patient states he has been having bowel movements regularly. Loose and he goes daily. He denies any abdominal pain and states no further nausea or vomiting today. He is tolerating popsicles and ice chips without any symptoms. No nausea and vomiting likely related to underlying gastric adenocarcinoma however other possible etiologies need to be considered. At this time patient has had no further nausea and vomiting. Antiemetics are on board. Current Visit: Yes Status: Acute Code(s): R11.2 - NAUSEA WITH VOMITING, UNSPECIFIED SNOMED Code(s): 65956108 (2) History of alcohol abuse Current Visit: Yes Status: Acute Code(s): F10.11 - ALCOHOL ABUSE, IN REMISSION SNOMED Code(s): 379995481 (3) Gastric adenocarcinoma Narrative/Plan: Hematology following Current Visit: Yes Status: Acute Code(s): C16.9 - MALIGNANT NEOPLASM OF STOMACH, UNSPECIFIED SNOMED Code(s): 656772685 (4) Ascites Narrative/Plan: Patient scheduled for therapeutic paracentesis Current Visit: No Status: Acute Priority: High Code(s): R18.8 - OTHER ASCI ANDRE SNOMED Code(s): 122804875 (5) Pleural effusion Current Visit: No Status: Acute Code(s): J90 - PLEURAL EFFUSION, NOT ELSEWHERE CLASSIFIED SNOMED Code(s): 90942674 Plan: 1. Continue symptomatic and supportive care 2. Continue IV hydration 3. Advance diet to clear liquid diet, advance as tolerated 4. Continue antiemetics as needed 5. Continue recommendations from hematology 6. Recommend continued alcohol abstinence 7. Therapeutic paracentesis as needed Thank you for this consultation, we will continue to follow. Dr. Corrine Mix I agree with the dictator's note, documented as a scribe by Alejandrina Garcia.
--- NOTE | 2021-07-28 15:21 | US ---
Ultrasound-guided paracentesis. DATE OF EXAM: 07/28/2021 CLINICAL HISTORY: Ascites The procedure was discussed with the patient. The risks, complications, benefits, and alternatives we re discussed and any questions were answered. Informed consent was obtained. The patient was placed s upine on the ultrasound table and prepped and draped in the usual sterile fashion. All elements of maximal barrier technique were utilized. Under ultrasound guidance, access into the right lower quadrant was obtained, via the paracentesis catheter system and direct ultrasound guidanc e. Approximately 4.1 liters of straw-colored fluid was removed. The patient was stable throughout the pr ocedure and remained stable upon discharge from Department of Radiology. IMPRESSION: Successful paracentesis under ultrasound guidance.
--- NOTE | 2021-07-28 15:31 | P.PN ---
<Alcon Becerra - Last Filed: 07/28/21 15:18> Subjective Progress Note Date: 07/28/21 History of Presenting Illness: Patient is a very pleasant 70-year-old male with past medical history of hypertension, hyperlipidemia, GERD, and recently diagnosed stomach cancer with metastasis. He presented to the hospital with a chief complaint of intractable nausea and vomiting. Patient reports this began approximately 3 days ago when he began to feel fatigued, nauseous, and decreased appetite and states that over the past 24 hours has had persistent nausea and vomiting accompanied by previous reported weakness and fatigue as well as dizziness and lightheadedness upon standing. Patient states he is currently being worked up by Dr. Gunn with plans to possibly begin chemotherapy for his stomach cancer with metastasis. Patient reports that he had a chemo port placed last week, but states they have not discussed treatment plan at this time. Patient's at bedside reports th at they have another appointment next week for education/teaching regarding care of port. Patient states he has also been receiving biweekly paracentesis secondary to extensive abdominal ascites resulting from this metastatic cancer. Patient reports last paracentesis 07/13/21 with next scheduled paracentesis 08/02/21. Patient denies having any other complaints including recent fevers, headache, chills, diaphoresis, chest pain, palpitations, shortness of breath at rest, cough or congestion, sore throat or difficulty with swallowing, or experiencing any new onset or changes in his abdominal pain/discomfort. He continues to report feeling his "usual" abdominal fullness and distention along with shortness of breath with exertion, but denies any changes in this pain or discomfort. In the emergency department, patient was seen and fully evaluated. KUB showing air-fluid levels with gas-filled loops of small bowel in the left hemiabdomen cannot exclude small bowel obstruction versus ileus versus enteritis with suspected ascites. Chest x-ray revealing probable basilar atelectasis and associated effusion with underlying emphysema. Labs: CBC revealing mild leukocytosis with WBC count of 13.2, stable normocytic normochromic anemia with hemoglobin of 12.1, and hypoalbuminemia with albumin of 2.8. Vital signs stable. Patient was given IV antibiotics: Rocephin and azithromycin admitted u nder our services for intractable nausea and vomiting with consultation to GI and oncology. Physical exam: Patient was seen and fully evaluated at bedside this morning. He is awaiting to go down for paracentesis ordered by oncologist, Dr. Nguyễn. Patient reports diffuse abdominal pain but states nausea has improved and denies further episodes of vomiting and reports continued normal bowel function. Patient experiencing increased oxygenation needs and was previously 100% on room air, patient now 90-91% on 2 L O2 via nasal cannula. He remains on azithromycin and Rocephin for concerns of right lower lobe pneumonia. Encouraged incentive spirometry use 10-15 times hourly while awake. Patient does report shortness of breath with exertion, denies shortness of breath at rest or experiencing any chest pain or palpitations. Vital signs reviewed and stable. General: Nontoxic, no acute distress, very thin/frail and chronically ill appearing. Derm: Skin warm and dry, normal coloration for ethnicity. Port to right chest, healing incision with no surrounding erythema, edema, or drainage. Small area of bruising to left lower abdomen beneath umbilicus. Head: Atraumatic, normocephalic and symmetric. Eyes: EOMs intact, no lid lag, and anicteric sclera Mouth: no lip lesions, mucus membranes dry Cardiovascular: regular rate and rhythm with normal S1S2, no murmur, positive posterior tibial pulses bilaterally, and cap refill < 2 seconds. Lungs: Respirations even, regular, and unlabored on room air. Lungs CTA bilaterally, no rhonchi, no rales, no wheezing, and no accessory muscle usage. Abdominal: Distended cirrhotic abdomen, taught, diffuse tenderness upon palpation. Ext: ROM intact. No gross muscle atrophy, no edema, no contractures Neuro: Speech clear, face symmetrical and CN II-XII grossly intact with no noted focal neuro deficits Psych: Alert and oriented to person, place, time, and situation. Appropriate and pleasant affect. Assessment and Plan of Care: Intractable nausea and vomiting Stomach cancer with metastasis Small bowel ileus, concerns for possible SBO Vs enteritis Abdominal ascites -Patient admitted under our services with consultation to GI and oncology. -KUB showing air-fluid levels with gas-filled loops of small bowel in the left hemiabdomen cannot exclude small bowel obstruction versus ileus versus enteritis with suspected ascites. -We will provide symptomatic care and pain management. -Gentle hydration with IV fluids. -Continue antibiotics with: Rocephin and azithromycin -Oncology following, placed order for paracentesis -Consultation to GI, currently recommending to advance diet to clear liquid diet, appreciate further recommendations -Continue Antiemetics with Compazine -Pro-calcitonin slightly elevated at 0.19 -Blood cultures pending -Continued close monitoring with repeat a.m. labs. Basilar atelectasis Emphysema/COPD Possible right lower lobe pneumonia -Chest x-ray revealing probable basilar atelectasis and associated effusion with underlying emphysema. -Encourage use of incentive spirometry 10-15 times hourly while awake. -Monitor for any development of cough or congestion. -Continue treatment with antibiotics Rocephin and azithromycin. -Continue oxygenation as needed to maintain SpO2 greater than or equal to 90% at all times. -Covid PCR negative. Hypertension Monitor vital signs. Patient reports being taken off of antihypertensive medications one week ago. Normocytic normochromic anemia, stable -We will continue to monitor with repeat a.m. labs, currently hemoglobin stable at 12.1. Hypoalbuminemia -Albumin 2.8, likely secondary to moderate ascites and recent biweekly paracentesis. We will continue to monitor closely. GERD GI prophylaxis with Protonix 40 mg IVP daily. CODE STATUS: Full code DVT prophylaxis: Heparin Discussed with: Patient and RN Anticipated discharge date: Clinical course to determine Anticipated discharge place: Home A total of 40 minutes was spent on the care of this complex patient more than 50% of the time was spent in counseling and care coordination. Objective - Vital Signs Vital signs: Vital Signs Temp 97.7 F 07/28/21 07:03 Pulse 73 07/28/21 07:03 Resp 18 07/28/21 07:03 BP 123/75 07/28/21 07:03 Pulse Ox 95 07/28/21 07:03 Intake & Output 07/27/21 07/28/21 07/28/21 18:59 06:59 18:59 Intake Total 1350 Balance 1350 Weight 77.111 kg Intake: Intake, IV Titration 1350 Amount Azithromycin 500 mg In 250 Sodium Chloride 0.9% 250 ml @ 250 mls/hr IVPB ONCE STA Rx#:[id number] Sodium Chloride 0.9% 1, 1000 000 ml @ 75 mls/hr IV . [id number] [facility] Rx#:[id number] cefTRIAXone 2 gm In 50 Sodium Chloride 0.9% 50 ml @ 100 mls/hr IVPB ONCE STA Rx#:[id number] cefTRIAXone 2 gm In 50 Sodium Chloride 0.9% 50 ml @ 100 mls/hr IVPB Q24H [facility] Rx#:[id number] Other: Voiding Method Toilet - Labs CBC & Chem 7: 07/28/21 07:27 07/27/21 11:53 Labs: Abnormal Lab Results - Last 24 Hours (Table) 07/27/21 07/27/21 07/27/21 Range/Units 11:53 11:53 16:04 WBC 13.2 H (3.8-10.6) k/uL RBC 4.03 L (4.30-5.90) m/uL Hgb 12.1 L (13.0-17.5) gm/dL Hct 37.5 L (39.0-53.0) % RDW 16.3 H (11.5-15.5) % Neutrophils # 11.5 H (1.3-7.7) k/uL Glucose 117 H (74-99) mg/dL AST 14 L (17-59) U/L Total Protein 6.0 L (6.3-8.2) g/dL Albumin 2.8 L (3.5-5.0) g/dL Procalcitonin 0.19 H (0.02-0.09) ng/mL Urine Protein (Negative) Urine Ketones (Negative) Urine Bilirubin (Negative) Calcium Oxalate Crystal (None) /hpf Hyaline Casts (0-2) /lpf Urine Mucus (None) /hpf 07/27/21 Range/Units 17:18 WBC (3.8-10.6) k/uL RBC (4.30-5.90) m/uL Hgb (13.0-17.5) gm/dL Hct (39.0-53.0) % RDW (11.5-15.5) % Neutrophils # (1.3-7.7) k/uL Glucose (74-99) mg/dL AST (17-59) U/L Total Protein (6.3-8.2) g/dL Albumin (3.5-5.0) g/dL Procalcitonin (0.02-0.09) ng/mL Urine Protein 2+ H (Negative) Urine Ketones 3+ H (Negative) Urine Bilirubin 2+ H (Negative) Calcium Oxalate Crystal Rare H (None) /hpf Hyaline Casts 5 H (0-2) /lpf Urine Mucus Many H (None) /hpf <Swetha Alonzo - Last Filed: 07/28/21 22:04> Subjective Patient seen and examined independently. Patient was also seen by Alcon Becerra NP and case was discussed. I am in agreement with subjective, physical exam, assessment and plan as written above and amended below. Patient is feeling better after having an paracentesis today. Abdominal pain nausea and vomiting are better. He is anxious to go home. General: no distress, appears at stated age Derm: warm, dry Head: atraumatic, normocephalic, symmetric Eyes: EOMI, no lid lag, anicteric sclera Mouth: no lip lesion, mucus membranes moist Cardiovascular: S1S2 reg, no murmur, positive posterior tibial pulse bilateral, Lungs: CTA bilateral, no rhonchi, no rales , no accessory muscle use Abdominal: soft, nontender to palpation, no guarding, no appreciable organ omegaly Ext: no gross muscle atrophy, 2+ edema, no contractures Neuro: CN II-XI grossly intact, no focal neuro deficits Psych: Alert, oriented, appropriate affect Objective - Vital Signs Vital signs: Vital Signs Temp 98.1 F 07/28/21 19:06 Pulse 83 07/28/21 20:00 Resp 17 07/28/21 20:00 BP 122/72 07/28/21 19:06 Pulse Ox 93 L 07/28/21 19:06 Intake & Output 07/28/21 07/28/21 07/29/21 06:59 18:59 06:59 Intake Total 1350 240 Balance 1350 240 Intake: Intake, IV Titration 1350 Amount Azithromycin 500 mg In 250 Sodium Chloride 0.9% 250 ml @ 250 mls/hr IVPB ONCE STA Rx#:[id number] Sodium Chloride 0.9% 1, 1000 000 ml @ 75 mls/hr IV . [id number] [facility] Rx#:[id number] cefTRIAXone 2 gm In 50 Sodium Chloride 0.9% 50 ml @ 100 mls/hr IVPB ONCE STA Rx#:[id number] cefTRIAXone 2 gm In 50 Sodium Chloride 0.9% 50 ml @ 100 mls/hr IVPB Q24H [facility] Rx#:[id number] Oral 240 Other: Voiding Method Toilet - Labs CBC & Chem 7: 07/28/21 07:27 07/27/21 11:53 Labs: Abnormal Lab Results - Last 24 Hours (Table) 07/27/21 07/27/21 07/28/21 Range/Units 15:42 16:04 07:27 RBC 3.70 L (4.40-5.60) X 10*6/uL Hgb 10.7 L (13.0-17.0) g/dL Hct 35.3 L (39.6-50.0) % MCHC 30.3 L (32.0-37.0) g/dL RDW 17.1 H (11.5-14.5) % Immature Gran # 0.08 H (0.00-0.04) X 10*3/uL Procalcitonin 0.19 H (0.02-0.09) ng/mL Ur Specific [place] >1.050 H (1.001-1.035) Urine Protein 1+ H (Negative) Urine Ketones 2+ H (Negative) Urine Bilirubin 1+ H (Negative) Urine Mucus Moderate H (None) /hpf Microbiology - Last 24 Hours (Table) 07/27/21 16:04 Blood Culture - Preliminary Blood No Growth after 24 hours 07/27/21 15:50 Blood Culture - Preliminary Blood No Growth after 24 hours 07/28/21 11:15 Sputum Culture - Preliminary Sputum
[2021-07-28 16:11] LABS: Appearance,Urine Clear (Clear); Bilirubin,Urine 1+ (Negative); Blood,Urine Negative (Negative); Color,Urine Yellow; Glucose,Urine (UA) Negative (Negative); Ketones,Urine 2+ (Negative); Leukocyte Esterase,Urine Negative (Negative); Mucus,Urine Moderate /hpf; Nitrite,Urine Negative (Negative); PH, Urine 6.5 (5.0-8.0); Protein,Urine 1+ (Negative); RBC,Urine 2 /hpf (0-5); Squamous Epithelial Cell,Urine <1 /hpf (0-4); Urobilinogen,Urine <2.0 mg/dL (<2.0); WBC,Urine 1 /hpf (0-5)
[2021-07-28 16:15] LABS: Specific Gravity,Urine >1.050 (1.001-1.035)
[2021-07-28] MEDS: AZITHROMYCIN 500 MG TAB PO SCH (16:22)
--- NOTE | 2021-07-28 21:35 | P.PN ---
Progress Note - Text Progress Note Date: 07/28/21 Advanced Care Planning: Diagnoses: Gastric cancer Discussion: Person(s) present and participating in discussion: Patient, Summary: Patient with recent diagnosis of gastric cancer, has required recurrent paracentesis with coming off of Plavix. PCP is working with him and getting paracentesis done at [facility] where he does not need to come off of Plavix prior to procedure. and patient declared that he would like to be a DO NOT RESUSCITATE meaning that if he should pass away we will allow and do not intervene. We also had a lengthy discussion about possible need for palliative care to help with symptomatic management and coordination of appointments. They will consider it, the patient feels he might not need it until after he starts chemo, but is considering. They're aware that they have a long road ahead of them with initiation of chemo A total of 16 minutes of face to face time was spent discussing advanced care planning.
[2021-07-29 04:59] LABS: Albumin, Fluid Source Paracentesis Fluid
[2021-07-29] MEDS: AZITHROMYCIN 500 MG TAB PO SCH (07:44)
[2021-07-29] MEDS: PANTOPRAZOLE 40 MG/10 ML VIAL IVP SCH (07:44)
[2021-07-29] MEDS: HEPARIN SODIUM,PORCINE/PF 5,000 UNIT/0.5 ML SYRINGE SQ SCH ×2 (07:45→16:14)
[2021-07-29] MEDS: HYDROcodone/APAP 5-325MG 1 EACH TAB PO PRN ×3 (07:47→22:11)
[2021-07-29 09:09] LABS: ALT <5 U/L (10-49); AST 13 U/L (14-35); African American GFR (CKD) 89.2 (60.0-200.0); Albumin 2.6 g/dL (3.8-4.9); Alkaline Phosphatase 92 U/L (41-126); Calcium 11.4 mg/dL (8.7-10.3); Carbon Dioxide 15.9 mmol/L (21.6-31.8); Chloride 108 mmol/L (96-109); Globulin 2.6 g/dL (1.6-3.3); Glucose 94 mg/dL (70-110); Potassium 5.6 mmol/L (3.5-5.5); Sodium 145 mmol/L (135-145); Total Protein 5.2 g/dL (6.2-8.2)
--- NOTE | 2021-07-29 13:10 | P.PN ---
Subjective Progress Note Date: 07/29/21 Principal diagnosis: Nausea and vomiting, dehydration 70-year-old male with a history of gastric carcinoma recently diagnosed within the last 4 weeks from [facility] gastroenterology after undergoing an EGD for significant weight loss. Patient has a history of significant alcohol abuse for many years. He is being followed by Dr. Gunn from oncology and recently had a port placed for plans to initiate chemotherapy. Gastroenterology was consulted for nausea and vomiting which patient has not had any since the day before admission. Patient is denying any abdominal pain, nausea, or vomiting. States he is having multiple loose stools. He states he had 3-4 since last night. He underwent a therapeutic paracentesis yesterday with removal of 4.1 L of fluid. States abdominal distention improved. He's been afebrile. Objective - Vital Signs Vital signs: Vital Signs Temp 98.1 F 07/29/21 07:56 Pulse 77 07/29/21 07:56 Resp 18 07/29/21 07:56 BP 115/72 07/29/21 07:56 Pulse Ox 92 L 07/29/21 07:56 Intake & Output 07/28/21 07/29/21 07/29/21 18:59 06:59 18:59 Intake Total 240 Balance 240 Intake: Oral 240 Other: Voiding Method Toilet Toilet - Exam General appearance: The patient is alert, oriented, appears in no acute distress. HET: Head is normocephalic and atraumatic. Conjunctiva pink. Sclera anicteric. Neck: Supple without lymphadenopathy. Abdomen: Soft, nontender, nondistended with bowel sounds. No guarding or rigidity. Extremities: Normal skin color and turgor. No pedal edema Skin: No rashes, no jaundice Neurological: No focal deficits. Alert and oriented x 3. - Labs CBC & Chem 7: 07/28/21 07:27 07/28/21 07:27 Labs: Abnormal Lab Results - Last 24 Hours (Table) 07/27/21 07/28/21 07/28/21 Range/Units 15:42 07:27 07:27 RBC 3.70 L (4.40-5.60) X 10*6/uL Hgb 10.7 L (13.0-17.0) g/dL Hct 35.3 L (39.6-50.0) % MCHC 30.3 L (32.0-37.0) g/dL RDW 17.1 H (11.5-14.5) % Immature Gran # 0.08 H (0.00-0.04) X 10*3/uL Potassium 5.6 H (3.5-5.5) mmol/L Carbon Dioxide 15.9 L (21.6-31.8) mmol/L Anion Gap 21.10 H (4.00-12.00) mmol/L Calcium 11.4 H (8.7-10.3) mg/dL Total Bilirubin 0.20 L (0.30-1.20) mg/dL AST 13 L (14-35) U/L ALT <5 L (10-49) U/L Total Protein 5.2 L (6.2-8.2) g/dL Albumin 2.6 L (3.8-4.9) g/dL Albumin/Globulin Ratio 1.00 L (1.60-3.17) g/dL Ur Specific [place] >1.050 H (1.001-1.035) Urine Protein 1+ H (Negative) Urine Ketones 2+ H (Negative) Urine Bilirubin 1+ H (Negative) Urine Mucus Moderate H (None) /hpf Microbiology - Last 24 Hours (Table) 07/28/21 11:15 Gram Stain - Preliminary Sputum Sputum Culture - Preliminary 07/28/21 14:13 Gram Stain - Preliminary Ascites Fluid Body Fluid Culture - Preliminary 07/28/21 14:13 Anaerobic Culture - Preliminary Ascites Fluid 07/27/21 16:04 Blood Culture - Preliminary Blood No Growth after 24 hours 07/27/21 15:50 Blood Culture - Preliminary Blood No Growth after 24 hours Assessment and Plan (1) Nausea & vomiting Narrative/Plan: 70-year-old male who presented to the hospital with weakness, intractable nausea and vomiting and dehydration. Patient was recently diagnosed with gastric cancer approximately 4 weeks ago. 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 Biopsies were apparently consistent with a gastric adenocarcinoma. He is currently under the care of Dr. Velazquez and plan is to start chemotherapy. Yesterday he had intractable nausea and vomiting states that he had vomited several times throughout the day. The nausea and vomiting has improved. He denied any coffee-ground or hematemesis. Patient does have a significant history of alcohol abuse for which he states he quit drinking within the last few weeks. CT of the abdomen and pelvis showed some co ncerns for ileus as well as a moderate amount of ascites. Patient states he has been having bowel movements regularly. Loose and he goes daily. He denies any abdominal pain and states no further nausea or vomiting today. He is tolerating popsicles and ice chips without any symptoms. No nausea and vomiting likely related to underlying gastric adenocarcinoma however other possible etiologies need to be considered. At this time patient has had no further nausea and vomiting. Antiemetics are on board. Nausea and vomiting resolved. Current Visit: Yes Status: Acute Code(s): R11.2 - NAUSEA WITH VOMITING, UNSPECIFIED SNOMED Code(s): 83559795 (2) History of alcohol abuse Current Visit: Yes Status: Acute Code(s): F10.11 - ALCOHOL ABUSE, IN REMISSION SNOMED Code(s): 192975090 (3) Gastric adenocarcinoma Narrative/Plan: Hematology following Current Visit: Yes Status: Acute Code(s): C16.9 - MALIGNANT NEOPLASM OF STOMACH, UNSPECIFIED SNOMED Code(s): 931105199 (4) Ascites Narrative/Plan: Patient scheduled for therapeutic paracentesis Current Visit: No Status: Acute Priority: High Code(s): R18.8 - OTHER ASCITES SNOMED Code(s): 674822309 (5) Pleural effusion Current Visit: No Status: Acute Code(s): J90 - PLEURAL EFFUSION, NOT ELSEWHERE CLASSIFIED SNOMED Code(s): 76892460 (6) Diarrhea Current Visit: Yes Status: Acute Code(s): R19.7 - DIARRHEA, UNSPECIFIED SNOMED Code(s): 34652229 Plan: 1. Continue symptomatic and supportive care 2. Continue antiemetics as needed 3. Please collect for C. diff 4. C. diff negative may start on antidiarrheals such as pneumonia as needed, however used cautiously as patient had a concern for possible ileus. 5. Diet tolerated Thank you for allowing us to participate in the care of the patient, the GI service will sign off, gastroenterology will not be available at the hospital this weekend and through next week. If further evaluation by gastroenterology is required the patient will need transfer as per the primary team's discretion. Dr. Corrine Mix I agree with the dictator's note, documented as a scribe by Alejandrina Garcia.
[2021-07-29 15:49] LABS: Anisocytosis Slight; Basophils % (A) 0 %; Eosinophils % (A) 0 %; HCT 33.9 % (39.0-53.0); Lymphocytes # (A) 0.8 k/uL (1.0-4.8); Lymphocytes % (A) 8 %; MCH 30.2 pg (25.0-35.0); MCHC 32.4 g/dL (31.0-37.0); MCV 93.2 fL (80.0-100.0); Mean Platelet Volume 8.1; Monocytes # (A) 0.5 k/uL (0-1.0); Monocytes % (A) 4 %; Neutrophils # (A) 9.5 k/uL (1.3-7.7); Neutrophils % (A) 87 %; Platelet Count 319 k/uL (150-450); RBC 3.63 m/uL (4.30-5.90); RDW 16.1 % (11.5-15.5); WBC 10.9 k/uL (3.8-10.6)
--- NOTE | 2021-07-29 15:58 | XR ---
2 view abdomen HISTORY: Ileus follow-up 2 views the abdomen submitted on 3 images and correlated prior exam 07/27/2021 There is no bowel distention or obstruction evident. There are air-fluid levels present centrally wit hin the abdomen. Lung bases show some possible effusion, difficult to exclude airspace disease. No ev ident pneumoperitoneum. There is contrast within the urinary bladder. Possible injection granuloma no skip in the left gluteal region, there is overlying artifact. IMPRESSION: Suspect underlying ascites.
[2021-07-29] MEDS: SODIUM CHLORIDE 0.9% 1,000 ML IV SCH (16:14)
--- NOTE | 2021-07-29 16:17 | CT ---
EXAMINATION TYPE: CT angio chest DATE OF EXAM: 07/29/2021 COMPARISON: CT 07/09/2021 HISTORY: Hypoxia, hypercoaguable. CT DLP: 333.9 mGycm Automated exposure control for dose reduction was used. CONTRAST: CTA scan of the thorax is performed with IV Contrast, patient injected with 100 mL of Isovue 370, pul monary embolism protocol. MIP images are created and reviewed. 3D reconstructed images are created on an independent workstation and reviewed. FINDINGS: LUNGS: The lungs show bilateral pleural effusions and associated atelectasis, there is no concerning parenchymal mass or nodule identified. Emphysematous changes are present within the lungs. There is no pneumothorax seen. The tracheobronchial tree is patent. AORTA: No dissection is seen. Aortic root is a 3.9 cm, proximal descending aorta 3.9 cm MEDIASTINUM: There is satisfactory enhancement of the pulmonary artery and its branches, there is no CT evidence for pulmonary embolism. Aorticopulmonary window adenopathy is present, axial image 53 as on prior. Small pericardial effusion is seen. OTHER: Abdominal ascites are present, suspect there are possible mesenteric masses, there is a right adrenal mass, stomach shows a thickened appearance. Questionable nodular contour of the liver. IMPRESSION: NO EVIDENT PULMONARY EMBOLISM. BILATERAL PLEURAL EFFUSIONS. EMPHYSEMA. MEDIASTINAL ADENOPATHY. FINDIN GS CONSISTENT WITH PATIENT'S HISTORY OF GASTRIC CANCER
[2021-07-29 16:29] LABS: ALT 9 U/L (4-49); AST 14 U/L (17-59); African American GFR (CKD) >90 (>60 ml/min/1.73 sqM); Albumin/Globulin Ratio 0.8; Alkaline Phosphatase 76 U/L (38-126); Anion Gap 5 mmol/L; Blood Urea Nitrogen 15 mg/dL (9-20); Calcium 7.8 mg/dL (8.4-10.2); Carbon Dioxide 24 mmol/L (22-30); Chloride 104 mmol/L (98-107); Globulin 2.6 g/dL; Glucose 119 mg/dL (74-99); Magnesium 1.7 mg/dL (1.6-2.3); Non-African American GFR(CKD) >90 (>60 ml/min/1.73 sqM); Potassium 3.8 mmol/L (3.5-5.1); Sodium 133 mmol/L (137-145); Total Bilirubin 0.2 mg/dL (0.2-1.3); Total Protein 4.6 g/dL (6.3-8.2)
--- NOTE | 2021-07-29 17:37 | P.PN ---
<Alcon Becerra - Last Filed: 07/29/21 17:18> Subjective Progress Note Date: 07/29/21 History of Presenting Illness: Patient is a very pleasant 70-year-old male with past medical history of hypertension, hyperlipidemia, GERD, and recently diagnosed stomach cancer with metastasis. He presented to the hospital with a chief complaint of intractable nausea and vomiting. Patient reports this began approximately 3 days ago when he began to feel fatigued, nauseous, and decreased appetite and states that over the past 24 hours has had persistent nausea and vomiting accompanied by previous reported weakness and fatigue as well as dizziness and lightheadedness upon standing. Patient states he is currently being worked up by Dr. Gunn with plans to possibly begin chemotherapy for his stomach cancer with metastasis. Patient reports that he had a chemo port placed last week, but states they have not discussed treatment plan at this time. Patient's at bedside reports th at they have another appointment next week for education/teaching regarding care of port. Patient states he has also been receiving biweekly paracentesis secondary to extensive abdominal ascites resulting from this metastatic cancer. Patient reports last paracentesis 07/13/21 with next scheduled paracentesis 08/02/21. Patient denies having any other complaints including recent fevers, headache, chills, diaphoresis, chest pain, palpitations, shortness of breath at rest, cough or congestion, sore throat or difficulty with swallowing, or experiencing any new onset or changes in his abdominal pain/discomfort. He continues to report feeling his "usual" abdominal fullness and distention along with shortness of breath with exertion, but denies any changes in this pain or discomfort. In the emergency department, patient was seen and fully evaluated. KUB showing air-fluid levels with gas-filled loops of small bowel in the left hemiabdomen cannot exclude small bowel obstruction versus ileus versus enteritis with suspected ascites. Chest x-ray revealing probable basilar atelectasis and associated effusion with underlying emphysema. Labs: CBC revealing mild leukocytosis with WBC count of 13.2, stable normocytic normochromic anemia with hemoglobin of 12.1, and hypoalbuminemia with albumin of 2.8. Vital signs stable. Patient was given IV antibiotics: Rocephin and azithromycin admitted u nder our services for intractable nausea and vomiting with consultation to GI and oncology. Physical exam: Patient was seen and fully evaluated at bedside this morning. Patient underwent therapeutic paracentesis on 07/28/21 with removal of 4.1 L of fluid. Patient reports having a difficult night overnight stating multiple episodes of diarrhea. We will place order for stool culture and C. diff and plan to repeat KUB tomorrow morning as previous KUB revealed air-fluid levels with gas-filled loops of small bowel in the hemiabdomen unable to completely rule out obstruction versus ileus versus enteritis. At this time patient reports improvement of abdominal pain and denies having any further episodes of nausea or vomiting. If patient develops recurrent pain in abdomen and/or nausea and vomiting returns will likely consult general surgery for evaluation to further rule out ileus versus obstruction. Patient tolerating clear liquid diet and ice chips, diet advanced to full liquid diet at this time. Patient remains on azithromycin and Rocephin, had mild leukocytosis today with WBC count of 10.9 and mild hyponatremia with sodium of 133. Once stool cultures have resulted may consider antidiarrheal agent. Patient reports since paracentesis he has had improvement in previously reported shortness of breath, decreased abdominal distention, and continues to deny any headache, lightheadedness, dizziness, chest pain, palpitations, or experiencing any numbness/tingling/weakness in his extremities. Patient did have episode of hypoxia overnight requiring 2 L O2 via nasal cannula to maintain SpO2 of 90%. Patient currently on 2 L O2 via nasal cannula with SpO2 of 92% at time of assessment this morning. Vital signs reviewed and stable. General: Nontoxic, no acute distress, very thin/frail and chronically ill appearing. Derm: Skin warm and dry, normal coloration for ethnicity. Port to right chest, healing incision with no surrounding erythema, edema, or drainage. Small area of bruising to left lower abdomen beneath umbilicus. Head: Atraumatic, normocephalic and symmetric. Eyes: EOMs intact, no lid lag, and anicteric sclera Mouth: no lip lesions, mucus membranes dry Cardiovascular: regular rate and rhythm with normal S1S2, no murmur, positive posterior tibial pulses bilaterally, and cap refill < 2 seconds. Lungs: Respirations even, regular, and unlabored on room air. Lungs CTA bilaterally, no rhonchi, no rales, no wheezing, and no accessory muscle usage. Abdominal: Distended cirrhotic abdomen, nontender upon palpation this morning. Ext: ROM intact. No gross muscle atrophy, no edema, no contractures Neuro: Speech clear, face symmetrical and CN II-XII grossly intact with no noted focal neuro deficits Psych: Alert and oriented to person, place, time, and situation. Appropriate and pleasant affect. Assessment and Plan of Care: Intractable nausea and vomiting, resolved Diarrhea Gastric adenocarcinoma with metastasis Small bowel ileus, concerns for possible SBO vs enteritis Abdominal ascites -We will continue to provide symptomatic care and pain management. -Gentle hydration with IV fluids. -Continue antibiotics with: Rocephin and azithromycin -Oncology following, appreciate further recommendations -Consultation to GI, appreciate further recommendations -Continue Antiemetics with Compazine -Pro-calcitonin slightly elevated at 0.19 -Blood cultures showing no growth after 24 hours -Patient underwent therapeutic paracentesis on 07/28/21 with removal of 4.1 L of ascitic fluid. -Gram stain and ascitic fluid cultures pending. -Continued close monitoring with repeat a.m. labs. -Stool culture and C. diff to be obtained. Basilar atelectasis Emphysema/COPD Possible right lower lobe pneumonia -Chest x-ray revealing probable basilar atelectasis and associated effusion with underlying emphysema. -Encourage use of incentive spirometry 10-15 times hourly while awake. -Monitor for any development of cough or congestion. -Continue treatment with antibiotics Rocephin and azithromycin. -Continue oxygenation as needed to maintain SpO2 greater than or equal to 90% at all times. Patient currently requiring 2 L O2 via nasal cannula to maintain SpO2 at 90%. -Covid PCR negative. Hypertension Monitor vital signs. Patient reports being taken off of antihypertensive medications one week ago. Normocytic normochromic anemia, stable -We will continue to monitor with repeat a.m. labs, currently hemoglobin stable at 12.1. Hypoalbuminemia -Albumin 2.0, secondary to moderate ascites and recent biweekly paracentesis. We will continue to monitor closely. -Blood pressure is stable, if patient becomes hypotensive may consider albumin infusion. GERD GI prophylaxis with Protonix 40 mg IVP daily. CODE STATUS: Full code DVT prophylaxis: Heparin Discussed with: Patient and RN Anticipated discharge date: Clinical course to determine Anticipated discharge place: Home A total of 40 minutes was spent on the care of this complex patient more than 50% of the time was spent in counseling and care coordination. Objective - Vital Signs Vital signs: Vital Signs Temp 98.1 F 07/29/21 07:56 Pulse 77 07/29/21 07:56 Resp 18 07/29/21 07:56 BP 115/72 07/29/21 07:56 Pulse Ox 92 L 07/29/21 07:56 Intake & Output 07/28/21 07/29/21 07/29/21 18:59 06:59 18:59 Intake Total 240 Balance 240 Intake: Oral 240 Other: Voiding Method Toilet Toilet - Labs CBC & Chem 7: 07/29/21 15:29 07/29/21 15:29 Labs: Abnormal Lab Results - Last 24 Hours (Table) 07/27/21 07/28/21 Range/Units 15:42 07:27 Potassium 5.6 H (3.5-5.5) mmol/L Carbon Dioxide 15.9 L (21.6-31.8) mmol/L Anion Gap 21.10 H (4.00-12.00) mmol/L Calcium 11.4 H (8.7-10.3) mg/dL Total Bilirubin 0.20 L (0.30-1.20) mg/dL AST 13 L (14-35) U/L ALT <5 L (10-49) U/L Total Protein 5.2 L (6.2-8.2) g/dL Albumin 2.6 L (3.8-4.9) g/dL Albumin/Globulin Ratio 1.00 L (1.60-3.17) g/dL Ur Specific [place] >1.050 H (1.001-1.035) Urine Protein 1+ H (Negative) Urine Ketones 2+ H (Negative) Urine Bilirubin 1+ H (Negative) Urine Mucus Moderate H (None) /hpf Microbiology - Last 24 Hours (Table) 07/28/21 11:15 Gram Stain - Preliminary Sputum Sputum Culture - Preliminary 07/28/21 14:13 Gram Stain - Preliminary Ascites Fluid Body Fluid Culture - Preliminary 07/28/21 14:13 Anaerobic Culture - Preliminary Ascites Fluid 07/27/21 16:04 Blood Culture - Preliminary Blood No Growth after 24 hours 07/27/21 15:50 Blood Culture - Preliminary Blood No Growth after 24 hours <Swetha Alonzo - Last Filed: 07/29/21 22:25> Subjective Alcon Becerra NP rendered care for this patient independently, reviewed the findings and plan as documented in the note above. I did not physically speak with or examine the patient on this date. Objective - Vital Signs Vital signs: Vital Signs Temp 97.3 F L 07/29/21 14:02 Pulse 83 07/29/21 20:00 Resp 18 07/29/21 20:00 BP 114/78 07/29/21 14:02 Pulse Ox 95 07/29/21 14:02 Intake & Output 07/29/21 07/29/21 07/30/21 06:59 18:59 06:59 Intake Total 240 480 Balance 240 480 Intake: Oral 240 480 Other: Voiding Method Toilet Toilet Toilet - Labs CBC & Chem 7: 07/29/21 15:29 07/29/21 15:29 Labs: Abnormal Lab Results - Last 24 Hours (Table) 07/28/21 07/29/21 07/29/21 Range/Units 07:27 15:29 15:29 WBC 10.9 H (3.8-10.6) k/uL RBC 3.63 L (4.30-5.90) m/uL Hgb 11.0 L (13.0-17.5) gm/dL Hct 33.9 L (39.0-53.0) % RDW 16.1 H (11.5-15.5) % Neutrophils # 9.5 H (1.3-7.7) k/uL Lymphocytes # 0.8 L (1.0-4.8) k/uL Sodium 133 L (137-145) mmol/L Potassium 5.6 H (3.5-5.5) mmol/L Carbon Dioxide 15.9 L (21.6-31.8) mmol/L Anion Gap 21.10 H (4.00-12.00) mmol/L Glucose 119 H (74-99) mg/dL Calcium 11.4 H 7.8 L (8.7-10.3) mg/dL Total Bilirubin 0.20 L (0.30-1.20) mg/dL AST 13 L 14 L (14-35) U/L ALT <5 L (10-49) U/L Total Protein 5.2 L 4.6 L (6.2-8.2) g/dL Albumin 2.6 L 2.0 L (3.8-4.9) g/dL Albumin/Globulin Ratio 1.00 L (1.60-3.17) g/dL Microbiology - Last 24 Hours (Table) 07/27/21 16:04 Blood Culture - Preliminary Blood No Growth after 48 hours 07/27/21 15:50 Blood Culture - Preliminary Blood No Growth after 48 hours 07/28/21 11:15 Gram Stain - Preliminary Sputum Sputum Culture - Preliminary 07/28/21 14:13 Gram Stain - Preliminary Ascites Fluid Body Fluid Culture - Preliminary 07/28/21 14:13 Anaerobic Culture - Preliminary Ascites Fluid
--- NOTE | 2021-07-29 22:25 | P.PN ---
Subjective Progress Note Date: 07/29/21 Principal diagnosis: Recent Diagnosis of Gastric Cancer Increased Shortness of breath today. He is status post Paracentesis. Abdominal xray without evidence of obstruction, CTA without evidence of PE. Objective - Vital Signs Vital signs: Vital Signs Temp 98.1 F 07/29/21 07:56 Pulse 77 07/29/21 07:56 Resp 18 07/29/21 07:56 BP 115/72 07/29/21 07:56 Pulse Ox 92 L 07/29/21 07:56 Intake & Output 07/28/21 07/29/21 07/29/21 18:59 06:59 18:59 Intake Total 240 Balance 240 Intake: Oral 240 Other: Voiding Method Toilet Toilet - Exam - Constitutional General appearance: cooperative, no acute distress - EENT Eyes: EOMI ENT: NA/AT - Neck Neck: normal ROM - Respiratory Respiratory: bilateral: diminished - Cardiovascular Rhythm: regularly irregular - Gastrointestinal General gastrointestinal: soft, tenderness - Integumentary Integumentary: pale - Musculoskeletal Musculoskeletal: generalized weakness - Psychiatric Psychiatric: A&O x's 3 - Labs CBC & Chem 7: 07/29/21 15:29 07/29/21 15:29 Labs: Abnormal Lab Results - Last 24 Hours (Table) 07/27/21 07/28/21 Range/Units 15:42 07:27 Potassium 5.6 H (3.5-5.5) mmol/L Carbon Dioxide 15.9 L (21.6-31.8) mmol/L Anion Gap 21.10 H (4.00-12.00) mmol/L Calcium 11.4 H (8.7-10.3) mg/dL Total Bilirubin 0.20 L (0.30-1.20) mg/dL AST 13 L (14-35) U/L ALT <5 L (10-49) U/L Total Protein 5.2 L (6.2-8.2) g/dL Albumin 2.6 L (3.8-4.9) g/dL Albumin/Globulin Ratio 1.00 L (1.60-3.17) g/dL Ur Specific [place] >1.050 H (1.001-1.035) Urine Protein 1+ H (Negative) Urine Ketones 2+ H (Negative) Urine Bilirubin 1+ H (Negative) Urine Mucus Moderate H (None) /hpf Microbiology - Last 24 Hours (Table) 07/28/21 11:15 Gram Stain - Preliminary Sputum Sputum Culture - Preliminary 07/28/21 14:13 Gram Stain - Preliminary Ascites Fluid Body Fluid Culture - Preliminary 07/28/21 14:13 Anaerobic Culture - Preliminary Ascites Fluid 07/27/21 16:04 Blood Culture - Preliminary Blood No Growth after 24 hours 07/27/21 15:50 Blood Culture - Preliminary Blood No Growth after 24 hours Assessment and Plan (1) Gastric adenocarcinoma Current Visit: Yes Status: Acute Code(s): C16.9 - MALIGNANT NEOPLASM OF STOMACH, UNSPECIFIED SNOMED Code(s): 653274327 Plan: New Diagnosis of Gastric Cancer - Patient admitted with persistent nausea and vomiting, denies relationship to phlegm - Gastric cancer with likely carcinamatosis - concern of tumor burden resulting in ileus/obstruction - CT abdomen and pelvis to re-evalaute (last in early May prior to diagnosis) - He has not begun treatment yet, is suppose to start 08/01/21, MP with Dr. Lemon and teach 07/28. - If N/V persists without identified etiology will need to consider further evaluation for metastatic disease to brain (less common await supportive care measures, NPO bowel rest and CT evaluation). - Status post Paracentesis. Will also check baseline labs for immune therapy which is planned to be given with chemotherapy FOLFOX CTA today for increased oxygen need Abdominal Xray to reassess after paracentesis for obstruction Physician Attest: I have completed the full history and physical and agree with above dictation, dictated as a ascribe.
[2021-07-30] MEDS: HEPARIN SODIUM,PORCINE/PF 5,000 UNIT/0.5 ML SYRINGE SQ SCH ×4 (06:01→19:45)
[2021-07-30 06:50] LABS: ALT 7 U/L (4-49); AST 13 U/L (17-59); African American GFR (CKD) >90 (>60 ml/min/1.73 sqM); Albumin/Globulin Ratio 0.7; Alkaline Phosphatase 83 U/L (38-126); Anion Gap 5 mmol/L; Blood Urea Nitrogen 13 mg/dL (9-20); Calcium 7.9 mg/dL (8.4-10.2); Carbon Dioxide 23 mmol/L (22-30); Chloride 105 mmol/L (98-107); Globulin 2.7 g/dL; Glucose 98 mg/dL (74-99); Non-African American GFR(CKD) >90 (>60 ml/min/1.73 sqM); Potassium 3.5 mmol/L (3.5-5.1); Sodium 133 mmol/L (137-145); Total Bilirubin 0.2 mg/dL (0.2-1.3); Total Protein 4.7 g/dL (6.3-8.2)
[2021-07-30] MEDS: PANTOPRAZOLE 40 MG/10 ML VIAL IVP SCH (07:59)
[2021-07-30] MEDS: PROCHLORPERAZINE INJ 10 MG/2 ML VIAL IVP PRN ×2 (08:00→17:35)
[2021-07-30] MEDS: HYDROcodone/APAP 5-325MG 1 EACH TAB PO PRN (08:05)
[2021-07-30] MEDS: FUROSEMIDE 40 MG TAB PO SCH ×2 (08:05→15:58)
[2021-07-30] MEDS: AZITHROMYCIN 500 MG TAB PO SCH (08:05)
[2021-07-30 09:11] LABS: Basophils # (A) 0.05 X 10*3/uL (0.00-0.10); Basophils % (A) 0.4 %; Eosinophils # (A) 0.14 X 10*3/uL (0.04-0.35); Eosinophils % (A) 1.2 %; HCT 33.9 % (39.6-50.0); HGB 10.8 g/dL (13.0-17.0); Lymphocytes # (A) 1.23 X 10*3/uL (0.90-5.00); Lymphocytes % (A) 10.6 %; MCHC 31.9 g/dL (32.0-37.0); MCV 91.1 fL (80.0-97.0); Monocytes # (A) 0.73 X 10*3/uL (0.20-1.00); Monocytes % (A) 6.3 %; Neutrophils # (A) 9.34 X 10*3/uL (1.80-7.70); Neutrophils % (A) 80.6 %; Platelet Count 319 X 10*3/uL (140-440); RBC 3.72 X 10*6/uL (4.40-5.60); RDW 16.7 % (11.5-14.5)
--- NOTE | 2021-07-30 16:49 | P.PN ---
<Alcon Becerra - Last Filed: 07/30/21 16:37> Subjective Progress Note Date: 07/30/21 History of Presenting Illness: Patient is a very pleasant 70-year-old male with past medical history of hypertension, hyperlipidemia, GERD, and recently diagnosed stomach cancer with metastasis. He presented to the hospital with a chief complaint of intractable nausea and vomiting. Patient reports this began approximately 3 days ago when he began to feel fatigued, nauseous, and decreased appetite and states that over the past 24 hours has had persistent nausea and vomiting accompanied by previous reported weakness and fatigue as well as dizziness and lightheadedness upon standing. Patient states he is currently being worked up by Dr. Gunn with plans to possibly begin chemotherapy for his stomach cancer with metastasis. Patient reports that he had a chemo port placed last week, but states they have not discussed treatment plan at this time. Patient's at bedside reports th at they have another appointment next week for education/teaching regarding care of port. Patient states he has also been receiving biweekly paracentesis secondary to extensive abdominal ascites resulting from this metastatic cancer. Patient reports last paracentesis 07/13/21 with next scheduled paracentesis 08/02/21. Patient denies having any other complaints including recent fevers, headache, chills, diaphoresis, chest pain, palpitations, shortness of breath at rest, cough or congestion, sore throat or difficulty with swallowing, or experiencing any new onset or changes in his abdominal pain/discomfort. He continues to report feeling his "usual" abdominal fullness and distention along with shortness of breath with exertion, but denies any changes in this pain or discomfort. In the emergency department, patient was seen and fully evaluated. KUB showing air-fluid levels with gas-filled loops of small bowel in the left hemiabdomen cannot exclude small bowel obstruction versus ileus versus enteritis with suspected ascites. Chest x-ray revealing probable basilar atelectasis and associated effusion with underlying emphysema. Labs: CBC revealing mild leukocytosis with WBC count of 13.2, stable normocytic normochromic anemia with hemoglobin of 12.1, and hypoalbuminemia with albumin of 2.8. Vital signs stable. Patient was given IV antibiotics: Rocephin and azithromycin admitted u nder our services for intractable nausea and vomiting with consultation to GI and oncology. Physical exam: Patient was seen and fully evaluated at bedside this morning. He reports having a better night last night reporting diarrhea has improved. Fluids discontinued and patient restarted on Lasix 40 mg by mouth twice daily to assist with diuresis. Patient's oxygen needs have increased and he is currently on 4 L O2 via nasal cannula with SpO2 of 93%. KUB was completed yesterday afternoon showing underlying ascites. CTA of chest also negative for pulmonary embolism revealing bilateral pleural effusions and emphysema with mediastinal a dental past the findings consistent with patient's history of gastric cancer with metastasis. Patient reports feeling very tired today and states he has tolerated a full liquid diet, we will advance to low fiber diet at this time. C. diff negative. Stool culture pending. Blood culture showing no growth after 48 hours. And cultures of ascites fluid resulted negative. Patient denies having any headache, lightheadedness, dizziness, chest pain, palpitations, or experiencing any numbness/tingling/weakness in his extremities. Vital signs stable. Vital signs reviewed and stable. General: Nontoxic, no acute distress, very thin/frail and chronically ill appearing. Derm: Skin warm and dry, normal coloration for ethnicity. Port to right chest, healing incision with no surrounding erythema, edema, or drainage. Small area of bruising to left lower abdomen beneath umbilicus. Head: Atraumatic, normocephalic and symmetric. Eyes: EOMs intact, no lid lag, and anicteric sclera Mouth: no lip lesions, mucus membranes dry Cardiovascular: regular rate and rhythm with normal S1S2, no murmur, positive posterior tibial pulses bilaterally, and cap refill < 2 seconds. Lungs: Respirations even, regular, and unlabored on room air. Lungs CTA bilaterally, no rhonchi, no rales, no wheezing, and no accessory muscle usage. Abdominal: Distended cirrhotic abdomen, nontender upon palpation this morning. Ext: ROM intact. No gross muscle atrophy, no edema, no contractures Neuro: Speech clear, face symmetrical and CN II-XII grossly intact with no noted focal neuro deficits Psych: Alert and oriented to person, place, time, and situation. Appropriate and pleasant affect. Assessment and Plan of Care: Intractable nausea and vomiting, resolved Diarrhea Gastric adenocarcinoma with metastasis Small bowel ileus, concerns for possible SBO vs enteritis Abdominal ascites -We will continue to provide symptomatic care and pain management. -Gentle hydration with IV fluids. -Continue antibiotics with: Rocephin and azithromycin -Oncology following, appreciate further recommendations -Consultation to GI, appreciate further recommendations -Continue Antiemetics with Compazine -Pro-calcitonin slightly elevated at 0.19 -C. diff negative. Stool culture pending. Blood culture showing no growth after 48 hours. Gram stain and ascitic fluid cultures resulted negative. -Patient underwent therapeutic paracentesis on 07/28/21 with removal of 4.1 L of ascitic fluid. -Continued close monitoring with repeat a.m. labs. Basilar atelectasis Emphysema/COPD Possible right lower lobe pneumonia -Chest x-ray revealing probable basilar atelectasis and associated effusion with underlying emphysema. -CTA of chest also negative for pulmonary embolism revealing bilateral pleural effusions and emphysema with mediastinal a dental past the findings consistent with patient's history of gastric cancer with metastasis. -Encourage use of incentive spirometry 10-15 times hourly while awake. -Monitor for any development of cough or congestion. -Continue treatment with antibiotics Rocephin and azithromycin. -Continue oxygenation as needed to maintain SpO2 greater than or equal to 90% at all times. Patient currently requiring 2 L O2 via nasal cannula to maintain SpO2 at 90%. -Covid PCR negative. Hypertension Monitor vital signs. Patient reports being taken off of antihypertensive medications one week ago. Normocytic normochromic anemia, stable -We will continue to monitor with repeat a.m. labs, currently hemoglobin stable at 12.1. Hypoalbuminemia -Albumin 2.0, secondary to moderate ascites and recent biweekly paracentesis. We will continue to monitor closely. -Blood pressure is stable, if patient becomes hypotensive may consider albumin infusion. GERD GI prophylaxis with Protonix 40 mg IVP daily. CODE STATUS: Full code DVT prophylaxis: Heparin Discussed with: Patient and RN Anticipated discharge date: Clinical course to determine Anticipated discharge place: Home A total of 40 minutes was spent on the care of this complex patient more than 50% of the time was spent in counseling and care coordination. Objective - Vital Signs Vital signs: Vital Signs Temp 97.7 F 07/30/21 08:00 Pulse 74 07/30/21 08:00 Resp 18 07/30/21 08:00 BP 118/70 07/30/21 08:00 Pulse Ox 91 L 07/30/21 08:00 Intake & Output 07/29/21 07/30/21 07/30/21 18:59 06:59 18:59 Intake Total 480 Balance 480 Intake: Oral 480 Other: Voiding Method Toilet Toilet - Labs CBC & Chem 7: 07/30/21 06:17 07/30/21 06:17 Labs: Abnormal Lab Results - Last 24 Hours (Table) 07/29/21 07/29/21 07/30/21 Range/Units 15:29 15:29 06:17 WBC 10.9 H 11.60 H (3.8-10.6) k/uL RBC 3.63 L 3.72 L (4.30-5.90) m/uL Hgb 11.0 L 10.8 L (13.0-17.5) gm/dL Hct 33.9 L 33.9 L (39.0-53.0) % MCHC 31.9 L (32.0-37.0) g/dL RDW 16.1 H 16.7 H (11.5-15.5) % Immature Gran # 0.11 H (0.00-0.04) X 10*3/uL Neutrophils # 9.5 H 9.34 H (1.3-7.7) k/uL Lymphocytes # 0.8 L (1.0-4.8) k/uL Sodium 133 L (137-145) mmol/L Glucose 119 H (74-99) mg/dL Calcium 7.8 L (8.4-10.2) mg/dL AST 14 L (17-59) U/L Total Protein 4.6 L (6.3-8.2) g/dL Albumin 2.0 L (3.5-5.0) g/dL 07/30/21 Range/Units 06:17 WBC (3.8-10.6) k/uL RBC (4.30-5.90) m/uL Hgb (13.0-17.5) gm/dL Hct (39.0-53.0) % MCHC (32.0-37.0) g/dL RDW (11.5-15.5) % Immature Gran # (0.00-0.04) X 10*3/uL Neutrophils # (1.3-7.7) k/uL Lymphocytes # (1.0-4.8) k/uL Sodium 133 L (137-145) mmol/L Glucose (74-99) mg/dL Calcium 7.9 L (8.4-10.2) mg/dL AST 13 L (17-59) U/L Total Protein 4.7 L (6.3-8.2) g/dL Albumin 2.0 L (3.5-5.0) g/dL Microbiology - Last 24 Hours (Table) 07/28/21 11:15 Gram Stain - Final Sputum Sputum Culture - Final Ana albicans 07/29/21 19:04 Stool Culture - Preliminary Stool 07/28/21 14:13 Gram Stain - Preliminary Ascites Fluid Body Fluid Culture - Preliminary 07/27/21 16:04 Blood Culture - Preliminary Blood No Growth after 48 hours 07/27/21 15:50 Blood Culture - Preliminary Blood No Growth after 48 hours <Swetha Alonzo - Last Filed: 07/30/21 18:50> Subjective Alcon Becerra NP rendered care for this patient independently, reviewed the findings and plan as documented in the note above. I did not physically speak with or examine the patient on this date. Objective - Vital Signs Vital signs: Vital Signs Temp 98.2 F 07/30/21 14:21 Pulse 87 07/30/21 14:21 Resp 18 07/30/21 14:21 BP 123/67 07/30/21 14:21 Pulse Ox 97 07/30/21 14:21 Intake & Output 07/29/21 07/30/21 07/30/21 18:59 06:59 18:59 Intake Total 480 Balance 480 Intake: Oral 480 Other: Voiding Method Toilet Toilet # Voids 3 - Labs CBC & Chem 7: 07/30/21 06:17 07/30/21 06:17 Labs: Abnormal Lab Results - Last 24 Hours (Table) 07/30/21 07/30/21 Range/Units 06:17 06:17 WBC 11.60 H (4.50-10.00) X 10*3/uL RBC 3.72 L (4.40-5.60) X 10*6/uL Hgb 10.8 L (13.0-17.0) g/dL Hct 33.9 L (39.6-50.0) % MCHC 31.9 L (32.0-37.0) g/dL RDW 16.7 H (11.5-14.5) % Immature Gran # 0.11 H (0.00-0.04) X 10*3/uL Neutrophils # 9.34 H (1.80-7.70) X 10*3/uL Sodium 133 L (137-145) mmol/L Calcium 7.9 L (8.4-10.2) mg/dL AST 13 L (17-59) U/L Total Protein 4.7 L (6.3-8.2) g/dL Albumin 2.0 L (3.5-5.0) g/dL Microbiology - Last 24 Hours (Table) 07/27/21 16:04 Blood Culture - Preliminary Blood No Growth after 72 hours 07/27/21 15:50 Blood Culture - Preliminary Blood No Growth after 72 hours 07/28/21 11:15 Gram Stain - Final Sputum Sputum Culture - Final Ana albicans 07/29/21 19:04 Stool Culture - Preliminary Stool 07/28/21 14:13 Gram Stain - Preliminary Ascites Fluid Body Fluid Culture - Preliminary
[2021-07-30] MEDS ORDERED: ALPRAZolam 0.5 MG TAB PO PRN (17:58)
--- NOTE | 2021-07-31 06:50 | XR ---
EXAMINATION TYPE: XR chest 1V portable DATE OF EXAM: 07/31/2021 COMPARISON: 07/28/2021 HISTORY: Follow-up right lower lobe infiltrate TECHNIQUE: Single frontal view of the chest is obtained. FINDINGS: There is been significant improvement in the right lower lobe infiltrate compared to previ ous. There is some residual mild interstitial markings in the right base which could represent atelec tasis or mild residual infiltrate. The left lung is clear. There is no pneumothorax. There is a right-sided port the tip of which is in the SVC/R junction. The heart size is normal and the pulmonary vasculature is not congested. The osseous structures are intact. IMPRESSION: Marked interval improvement in the right lower lobe infiltrate as described above.
[2021-07-31 08:19] VITALS: BP 98/69; PULSE 95; RESP 18; TEMP 98.6
[2021-07-31] MEDS: AZITHROMYCIN 500 MG TAB PO SCH (08:26)
[2021-07-31] MEDS: FUROSEMIDE 40 MG TAB PO SCH (08:27)
[2021-07-31] MEDS: HEPARIN SODIUM,PORCINE/PF 5,000 UNIT/0.5 ML SYRINGE SQ SCH (08:28)
[2021-07-31] MEDS: PANTOPRAZOLE 40 MG/10 ML VIAL IVP SCH (08:42)
--- NOTE | 2021-07-31 17:12 | P.PN ---
Subjective Progress Note Date: 07/31/21 Discharge Diagnosis: Intractable nausea and vomiting, resolved Diarrhea Gastric adenocarcinoma with metastasis Small bowel ileus, SBO ruled out Abdominal ascites Basilar atelectasis Emphysema/COPD Right lower lobe pneumonia Hypertension Normocytic normochromic anemia, stable Hypoalbuminemia GERD Hospital Course: Patient is a very pleasant 70-year-old male with past medical history of hypertension, hyperlipidemia, GERD, and recently diagnosed stomach cancer with metastasis. He presented to the hospital with a chief complaint of intractable nausea and vomiting. Patient reports this began approximately 3 days ago when he began to feel fatigued, nauseous, and decreased appetite and states that over the past 24 hours has had persistent nausea and vomiting accompanied by previous reported weakness and fatigue as well as dizziness and lightheadedness upon standing. Patient states he is currently being worked up by Dr. Gunn with [facility] to possibly begin chemotherapy for his stomach cancer with metastasis. Patient reports that he had a chemo port placed last week, but states they have not discussed treatment plan at this time. Patient's at bedside reports that they have another appointment next week for education/teaching regarding care of port. Patient states he has also been receiving biweekly paracentesis secondary to extensive abdominal ascites resulting from this metastatic cancer. Patient reports last paracentesis 07/13/21 with next scheduled paracentesis 08/02/21. Patient denies having any other complaints including recent fevers, headache, chills, diaphoresis, chest pain, palpitations, shortness of breath at rest, cough or congestion, sore throat or difficulty with swallowing, or experiencing any new onset or changes in his abdominal pain/discomfort. He continues to report feeling his "usual" abdominal fullness and distention along with shortness of breath with exertion, but denies any changes in this pain or discomfort. In the emergency department, patient was seen and fully evaluated. KUB showing air-fluid levels with gas-filled loops of small bowel in the left hemiabdomen cannot exclude small bowel obstruction versus ileus versus enteritis with suspected ascites. Chest x-ray revealing probable basilar atelectasis and associated effusion with underlying emphysema. Labs: CBC revealing mild leukocytosis with WBC count of 13.2, stable normocytic normochromic anemia with hemoglobin of 12.1, and hypoalbuminemia with albumin of 2.8. Vital signs stable. Patient was given IV antibiotics: Rocephin and azithromycin admitted under our services for intractable nausea and vomiting with consultation to GI and oncology. During hospitalization, patient received gentle hydration with IV fluids completion of IV antibiotic Rocephin and continued antibiotic with azithromycin. Patient had stool cultures completed was C. diff negative and stool culture preliminary results negative. Blood culture showed no growth after 72 hours and patient underwent therapeutic paracentesis on 07/28/21 with r emoval of 4.1 L of ascitic fluid. Gram culture and ascitic fluid cultures negative. Patient reports feeling much better and requesting discharge home. Patient scheduled to follow-up outpatient with a Dr. Velazquez and Dr. Cheung. Patient being discharged home with [facility] palliative care. Physical exam: Patient was seen and fully evaluated at bedside this morning reported feeling much better. Patient's at bedside patient and requesting discharge understanding they will need to follow up as scheduled with oncologist and PCP. Patient being discharged home with [facility] services. Patient currently denies having any headache, lightheadedness, dizziness, chest pain, palpitations, shortness of breath or experiencing any numbness/tingling/weakness in his extremities. Vital signs stable. Patient ambulatory throughout room without difficulties. Vital signs reviewed and stable. General: Nontoxic, no acute distress, very thin/frail and chronically ill appearing. Derm: Skin warm and dry, normal coloration for ethnicity. Port to right chest, healing incision with no surrounding erythema, edema, or drainage. Small area of bruising to left lower abdomen beneath umbilicus. Head: Atraumatic, normocephalic and symmetric. Eyes: EOMs intact, no lid lag, and anicteric sclera Mouth: no lip lesions, mucus membranes dry Cardiovascular: regular rate and rhythm with normal S1S2, no murmur, positive posterior tibial pulses bilaterally, and cap refill < 2 seconds. Lungs: Respirations even, regular, and unlabored on room air. Lungs CTA bilaterally, no rhonchi, no rales, no wheezing, and no accessory muscle usage. Abdominal: Distended cirrhotic abdomen, nontender upon palpation. Ext: ROM intact. No gross muscle atrophy, no edema, no contractures Neuro: Speech clear, face symmetrical and CN II-XII grossly intact with no noted focal neuro deficits Psych: Alert and oriented to person, place, time, and situation. Appropriate and pleasant affect. A total of 45 minutes of time were spent preparing this complex discharge summary. Objective - Vital Signs Vital signs: Vital Signs Temp 98.6 F 07/31/21 08:18 Pulse 95 07/31/21 08:18 Resp 18 07/31/21 08:18 BP 98/69 07/31/21 08:18 Pulse Ox 92 L 07/31/21 08:30 Intake & Output 07/30/21 07/31/21 07/31/21 19:59 06:59 18:59 Intake Total Balance Intake: Oral Other: Voiding Method # Voids - Labs CBC & Chem 7: 07/30/21 06:17 07/30/21 06:17 Labs: Microbiology - Last 24 Hours (Table) 07/28/21 14:13 Anaerobic Culture - Preliminary Ascites Fluid 07/28/21 14:13 Gram Stain - Preliminary Ascites Fluid Body Fluid Culture - Preliminary 07/27/21 16:04 Blood Culture - Preliminary Blood No Growth after 72 hours 07/27/21 15:50 Blood Culture - Preliminary Blood No Growth after 72 hours 07/28/21 11:15 Gram Stain - Final Sputum Sputum Culture - Final Ana albicans
--- NOTE | 2021-07-31 20:15 | P.PN ---
Subjective Progress Note Date: 07/31/21 Principal diagnosis: Recent Diagnosis of Gastric Cancer Patient seen and evalauted prior to discharge. he states he is still nauseated, not eating. We discussed this concern prior to starting treatment. We will evlauate and set new treatment date in office this week, will discuss further imaging of brain as well for persistent nausea Objective - Vital Signs Vital signs: Vital Signs Temp 98.6 F 07/31/21 08:18 Pulse 95 07/31/21 08:18 Resp 18 07/31/21 08:18 BP 98/69 07/31/21 08:18 Pulse Ox 92 L 07/31/21 08:30 Intake & Output 07/31/21 07/31/21 08/01/21 06:59 18:59 06:59 Intake Total Balance Intake: Oral Other: Voiding Method Toilet - Exam - Constitutional General appearance: cooperative, no acute distress - EENT Eyes: EOMI ENT: NA/AT - Neck Neck: normal ROM - Respiratory Respiratory: bilateral: diminished - Cardiovascular Rhythm: regularly irregular - Gastrointestinal General gastrointestinal: soft, tenderness - Integumentary Integumentary: pale - Musculoskeletal Musculoskeletal: generalized weakness - Psychiatric Psychiatric: A&O x's 3 - Labs CBC & Chem 7: 07/30/21 06:17 07/30/21 06:17 Labs: Microbiology - Last 24 Hours (Table) 07/27/21 16:04 Blood Culture - Preliminary Blood No Growth after 96 hours 07/27/21 15:50 Blood Culture - Preliminary Blood No Growth after 96 hours 07/28/21 14:13 Anaerobic Culture - Preliminary Ascites Fluid 07/28/21 14:13 Gram Stain - Preliminary Ascites Fluid Body Fluid Culture - Preliminary Assessment and Plan (1) Gastric adenocarcinoma Status: Acute Code(s): C16.9 - MALIGNANT NEOPLASM OF STOMACH, UNSPECIFIED SNOMED Code(s): 826876037 Plan: New Diagnosis of Gastric Cancer - Patient admitted with persistent nausea and vomiting, denies relationship to phlegm - Gastric cancer with likely carcinamatosis - concern of tumor burden resulting in ileus/obstruction - CT abdomen and pelvis to re-evalaute (last in early May prior to diagnosis) - He has not begun treatment yet, is suppose to start 08/01/21, MP with Dr. Lemon and teach 07/28. - If N/V persists without identified etiology will need to consider further evaluation for metastatic disease to brain (less common await supportive care measures, NPO bowel rest and CT evaluation). - Status post Paracentesis. Will also check baseline labs for immune therapy which is planned to be given with chemotherapy FOLFOX Appt will be reset for this week for teach and chemotherapy to start
--- NOTE | 2021-08-01 07:17 | P.DS ---
<Alcon Becerra - Last Filed: 08/01/21 07:15> Providers Expected date of discharge: 07/31/21 Hospital Course: Discharge Diagnosis: Intractable nausea and vomiting, resolved Diarrhea Gastric adenocarcinoma with metastasis Small bowel ileus, SBO ruled out Abdominal ascites Basilar atelectasis Emphysema/COPD Right lower lobe pneumonia Hypertension Normocytic normochromic anemia, stable Hypoalbuminemia GERD Hospital Course: Patient is a very pleasant 70-year-old male with past medical history of hypertension, hyperlipidemia, GERD, and recently diagnosed stomach cancer with metastasis. He presented to the hospital with a chief complaint of intractable nausea and vomiting. Patient reports this began approximately 3 days ago when he began to feel fatigued, nauseous, and decreased appetite and states that over the past 24 hours has had persistent nausea and vomiting accompanied by previous reported weakness and fatigue as well as dizziness and lightheadedness upon standing. Patient states he is currently being worked up by Dr. Gunn with plans to possibly begin chemotherapy for his stomach cancer with metastasis. Patient reports that he had a chemo port placed last week, but states they have not discussed treatment plan at this time. Patient's at bedside reports that they have another appointment next week for education/teaching regarding care of port. Patient states he has also been receiving biweekly paracentesis secondary to extensive abdominal ascites resulting from this metastatic cancer. Patient reports last paracentesis 07/13/21 with next scheduled paracentesis 08/02/21. Patient denies having any other complaints including recent fevers, headache, chills, diaphoresis, chest pain, palpitations, shortness of breath at rest, cough or congestion, sore throat or difficulty with swallowing, or experiencing any new onset or changes in his abdominal pain/discomfort. He continues to report feeling his "usual" abdominal fullness and distention along with shortness of breath with exertion, but denies any changes in this pain or discomfort. In the emergency department, patient was seen and fully evaluated. KUB showing air-fluid levels with gas-filled loops of small bowel in the left hemiabdomen cannot exclude small bowel obstruction versus ileus versus enteritis with suspected ascites. Chest x-ray revealing probable basilar atelectasis and associated effusion with underlying emphysema. Labs: CBC revealing mild leukocytosis with WBC count of 13.2, stable normocytic normochromic anemia with hemoglobin of 12.1, and hypoalbuminemia with albumin of 2.8. Vital signs stable. Patient was given IV antibiotics: Rocephin and azithromycin admitted under our services for intractable nausea and vomiting with consultation to GI and oncology. During hospitalization, patient received gentle hydration with IV fluids completion of IV antibiotic Rocephin and continued antibiotic with azithromycin. Patient had stool cultures completed was C. diff negative and stool culture preliminary results negative. Blood culture showed no growth after 72 hours and patient underwent therapeutic paracentesis on 07/28/21 with removal of 4.1 L of ascitic fluid. Gram culture and ascitic fluid cultures negative. Patient reports feeling much better and requesting discharge home. Patient scheduled to follow-up outpatient with a Dr. Velazquez and Dr. Cheung. Patient being discharged home with [facility] palliative care. Physical exam: Patient was seen and fully evaluated at bedside this morning reported feeling much better. Patient's at bedside patient and requesting discharge understanding they will need to follow up as scheduled with oncologist and PCP. Patient being discharged home with [facility] services. Patient currently denies having any headache, lightheadedness, dizziness, chest pain, palpitations, shortness of breath or experiencing any numbness/tingling/weakness in his extremities. Vital signs stable. Patient ambulatory throughout room without difficulties. Vital signs reviewed and stable. General: Nontoxic, no acute distress, very thin/frail and chronically ill appearing. Derm: Skin warm and dry, normal coloration for ethnicity. Port to right chest, healing incision with no surrounding erythema, edema, or drainage. Small area of bruising to left lower abdomen beneath umbilicus. Head: Atraumatic, normocephalic and symmetric. Eyes: EOMs intact, no lid lag, and anicteric sclera Mouth: no lip lesions, mucus membranes dry Cardiovascular: regular rate and rhythm with normal S1S2, no murmur, positive posterior tibial pulses bilaterally, and cap refill < 2 seconds. Lungs: Respirations even, regular, and unlabored on room air. Lungs CTA bilaterally, no rhonchi, no rales, no wheezing, and no accessory muscle usage. Abdominal: Distended cirrhotic abdomen, nontender upon palpation. Ext: ROM intact. No gross muscle atrophy, no edema, no contractures Neuro: Speech clear, face symmetrical and CN II-XII grossly intact with no noted focal neuro deficits Psych: Alert and oriented to person, place, time, and situation. Appropriate and pleasant affect. A total of 45 minutes of time were spent preparing this complex discharge summary. Initial discharge summary placed under progress note format. Patient Condition at Discharge: Fair Plan - Discharge Summary New Discharge Prescriptions: New Prochlorperazine [Compazine] 10 mg PO Q6H PRN #30 tab PRN Reason: Nausea And Vomiting Furosemide [Lasix] 40 mg PO BID@0900,1600 30 Days #60 tab HYDROcodone/APAP 5-325MG [[place] 5-325] 1 each PO Q4HR PRN 3 Days #18 tab PRN Reason: Moderate Pain Pantoprazole [Protonix] 40 mg PO DAILY 30 Days #30 tab Azithromycin [Zithromax] 500 mg PO DAILY 1 Days #1 tab Continue Atorvastatin [Lipitor] 80 mg PO HS #90 tab Clopidogrel [Plavix] 75 mg PO DAILY #90 tab Discontinued carvediloL [Coreg] 3.125 mg PO BID-W/MEALS #180 tab lisinopriL [Zestril] 5 mg PO DAILY Discharge Medication List Atorvastatin [Lipitor] 80 mg PO HS #90 tab 03/18/19 [Rx] Clopidogrel [Plavix] 75 mg PO DAILY #90 tab 03/18/19 [Rx] Azithromycin [Zithromax] 500 mg PO DAILY 1 Days #1 tab 07/31/21 [Rx] Furosemide [Lasix] 40 mg PO BID@0900,1600 30 Days #60 tab 07/31/21 [Rx] HYDROcodone/APAP 5-325MG [[place] 5-325] 1 each PO Q4HR PRN 3 Days #18 tab 07/31/21 [Rx] Pantoprazole [Protonix] 40 mg PO DAILY 30 Days #30 tab 07/31/21 [Rx] Prochlorperazine [Compazine] 10 mg PO Q6H PRN #30 tab 07/31/21 [Rx] Follow up Appointment(s)/Referral(s): Timo Cheung MD [Primary Care Provider] - 1-2 days [facility] [NON-STAFF] - As Needed Paty Velazquez MD [STAFF PHYSICIAN] - 3 Days Ambulatory/Diagnostic Orders: Complete Blood Count w/diff [LAB.AMB] Location: None Selected Comprehensive Metabolic Panel [LAB.AMB] Time Frame: 3 Days, Location: None Selected Magnesium [LAB.AMB] Location: None Selected Activity/Diet/Wound Care/Special Instructions: Activity: As tolerated. Take breaks as needed. Diet: Heart healthy and carb consistent diet. Avoid salts, or foods with hidden salts such as canned or boxed foods and frozen dinners. Extra salt makes your heart work harder and traps the fluid in your body for longer. Special Instructions: Take all of your medications as directed and remember to keep all of your doctor's appointments and follow-up as needed. Thank you for allowing us to participate in your care, it was truly a pleasure having you for our patient!!! Discharge Disposition: HOME WITH HOME HEALTH SERVICES <Swetha Alonzo - Last Filed: 08/01/21 07:54> Providers Date of admission: 07/27/21 15:08 Attending physician: Swetha Alonzo DO Consults: 07/27/21 15:37 Consult Physician Routine Consulting Provider: Chad Nguyễn Consult Reason/Comments: Stomach cancer with metastases, intractable nausea and vomiting Do you want consulting provider notified?: Yes 07/27/21 15:59 Consult Physician Routine Consulting Provider: Lenore Mix Consult Reason/Comments: intractable n/v, poss illeus vs SBO vs enteritis in pt w/ stomach ca w/mets Do you want consulting provider notified?: Yes Primary care physician: Timo Cheung MD Hospital Course: Alcon Becerra NP rendered care for this patient independently, reviewed the findings and plan as documented in the note above. I did not physically speak with or examine the patient on this date.
== END 2021-07-31 15:10 | disposition home health service (06) | DRG 388 ==
LOC: EC 09:59 → 4SSUR 15:08
PROVIDERS: ADMIT Internal Medicine; ATTEND Internal Medicine
PROC: 0W9G3ZX Drainage of Peritoneal Cavity, Percutaneous Approach, Diagnostic (ICD-10-PCS; principal; 2021-07-28)
DX: K56.7 Ileus, unspecified (principal); J18.9 Pneumonia, unspecified organism; C16.9 Malignant neoplasm of stomach, unspecified; C79.9 Secondary malignant neoplasm of unspecified site; J90 Pleural effusion, not elsewhere classified; J98.11 Atelectasis; R18.8 Other ascites; D64.9 Anemia, unspecified; E78.5 Hyperlipidemia, unspecified; E86.0 Dehydration; E88.09 Other disorders of plasma-protein metabolism, not elsewhere classified; F10.11 Alcohol abuse, in remission; I10 Essential (primary) hypertension; J43.9 Emphysema, unspecified; K21.9 Gastro-esophageal reflux disease without esophagitis; R63.4 Abnormal weight loss; E53.8 Deficiency of other specified B group vitamins; J30.9 Allergic rhinitis, unspecified; Z51.5 Encounter for palliative care; Z20.822 Contact with and (suspected) exposure to COVID-19; Z79.02 Long term (current) use of antithrombotics/antiplatelets; Z79.899 Other long term (current) drug therapy; Z82.49 Family history of ischemic heart disease and other diseases of the circulatory system; Z86.73 Personal history of transient ischemic attack (TIA), and cerebral infarction without residual deficits; Z87.891 Personal history of nicotine dependence; Z68.20 Body mass index [BMI] 20.0-20.9, adult; Z90.49 Acquired absence of other specified parts of digestive tract
CPT/HCPCS: 36415; 49083; 71045; 71046; 71275; 74018; 74019; 74177; 80053; 81001; 82042; 82150; 82533; 83605; 83615; 83690; 83735; 84145; 84443; 85025; 85610; 87040; 87045; 87046; 87070; 87075; 87205; 87324; 87635; 88108; 88305; 88341; 88342; 94760; 96361; 96374; 99285

== ENCOUNTER → 2021-08-04 | Outpatient (CLI) | payer MEDICARE ==
--- NOTE | 2021-08-04 14:01 | MR ---
EXAMINATION TYPE: MR brain wo/w con DATE OF EXAM: 08/04/2021 COMPARISON: CT brain March 17, 2019 HISTORY: Carcinoma of stomach 06-28-21 newly diagnosed. TECHNIQUE: Multiplanar, multisequence images of the brain and brainstem is performed without and with IV contras t, utilizing 7.5 mL intravenous Gadavist . FINDINGS: Diffusion weighted images demonstrate no evidence of a recent infarct or other diffusion ab normality. The ventricular system and cisternal spaces are normal in size and appearance. The brain volume is age appropriate. There is occasional tiny focus of T2 hyperintensity scattered throughout t he white matter bilaterally. Less than 5 small lesions are present. Midline structures demonstrate normal morphology. The craniocervical junction appears within normal limits. Post contrast images demonstrate no abnormal enhancement. The dural venous sinuses appear pa tent. The visualized sinuses are clear and the globes are intact. IMPRESSION: No suspicious enhancing masses to suggest metastatic disease to the brain.
== END | disposition home or self-care (01) ==
LOC: RADMRIMAIN 12:41
PROVIDERS: ATTEND Internal Medicine Hematology & Oncology
DX: C16.9 Malignant neoplasm of stomach, unspecified (principal)
CPT/HCPCS: 70553; A9585

== ENCOUNTER 2021-08-11 12:53 | Day surgery (SDC) | payer MEDICARE ==
[2021-08-11 13:40] LABS: Mean Platelet Volume 7.4; Platelet Count 428 k/uL (150-450)
[2021-08-11 13:43] VITALS: RESP 16; TEMP 97.9
[2021-08-11 13:52] LABS: INR 1.1 (<1.2); Prothrombin Time 11.3 sec (9.0-12.0)
[2021-08-11 14:53] VITALS: BP 109/71; PULSE 75
--- NOTE | 2021-08-11 16:12 | US ---
Ultrasound-guided paracentesis. DATE OF EXAM: 08/11/2021 CLINICAL HISTORY: Ascites The procedure was discussed with the patient. The risks, complications, benefits, and alternatives we re discussed and any questions were answered. Informed consent was obtained. The patient was placed s upine on the ultrasound table and prepped and draped in the usual sterile fashion. All elements of maximal barrier technique were utilized. Under ultrasound guidance, access into the right lower quadrant was obtained, via the paracentesis catheter system and direct ultrasound guidanc e. Approximately 2.5 liters of straw-colored fluid was removed. The patient was stable throughout the pr ocedure and remained stable upon discharge from Department of Radiology. IMPRESSION: Successful paracentesis under ultrasound guidance.
== END 2021-08-11 14:56 | disposition home or self-care (01) ==
LOC: RADPROMAIN 12:53
PROVIDERS: ATTEND Internal Medicine
DX: R18.8 Other ascites (principal)
CPT/HCPCS: 49083; 85049; 85610

== ENCOUNTER 2021-08-11 15:12 | Observation (INO) | payer MEDICARE ==
--- NOTE | 2021-08-11 17:32 | ED ---
General Adult HPI - General Chief complaint: Recheck/Abnormal Lab/Rx Stated complaint: Low potassium-Dr. Velazquez Time Seen by Provider: 08/11/21 17:22 Source: patient Mode of arrival: wheelchair Limitations: no limitations - History of Present Illness Initial comments: Dictation was produced using [employer] dictation software. please excuse any grammatical, word or spelling errors. Chief Complaint: 70-year-old male presents to the emergency department for abnormal outpatient lab. History of Present Illness: Patient is a 62-year-old male presents emergency department for abnormal outpatient lab. He just started chemotherapy recently after being diagnosed with stomach cancer approximately one month ago. Patient had surveillance labs performed in the oncologist office 2 days ago. He was told about abnormal result today of low potassium. is at the bedside reports that he did not receive a value just told him to come to the ER. Patient states he feels tired. He has no other complaints otherwise. The ROS documented in this emergency department record has been reviewed and confirmed by me. Those systems with pertinent positive or negative responses have been documented in the HPI. All other systems are other negative and/or noncontributory. PHYSICAL EXAM: General Impression: Alert and oriented x3, not in acute distress HEENT: Normocephalic atraumatic, extra-ocular movements intact, pupils equal and reactive to light bilaterally, mucous membranes moist. Cardiovascular: Heart regular rate and rhythm Chest: Able to complete full sentences, no retractions, no tachypnea Abdomen: abdomen soft, non-tender, non-distended, no organomegaly Musculoskeletal: Pulses present and equal in all extremities, no peripheral edema Motor: no focal deficits noted Neurological: CN II-XII grossly intact, no focal motor or sensory deficits noted Skin: Intact with no visualized rashes Psych: Normal affect and mood ED course: 70-year-old male presents to the emergency department for abnormal outpatient lab. He was told that he has critically low potassium level. EKG shows prolonged QT but no bradycardia or hyperacute T waves Laboratory evaluation obtained. CBC is within acceptable limits. Metabolic panel shows sodium 132. This is around his baseline. Potassium is 3.0. There does not appear to be a critically low potassium. Rest metabolic panel is within acceptable limits. Patient reevaluated bedside at 7:20 PM. Repeat EKG shows QTC of 454. EKG performed at 7:30 shows sinus tachycardia 114, IN interva l 120, QRS 82, QTc 454Patient given oral potassium. He has an appointment with his oncologist next week. Patient given prescription for oral potassium. He is also advised to increase potassium-containing foods in his diet. Patient and family member agreeable discharge. EKG interpretation: Ventricular rate 107, sinus tachycardia,. 124, QRS 86, QTC 550. No IN prolongation, no ST or T-wave changes noted. Prolonged QT - Related Data Home Medications Medication Instructions Recorded Confirmed Clopidogrel [Plavix] 75 mg PO DIRECTED 08/11/21 08/11/21 HYDROcodone/APAP 5-325MG [[place] 1 tab PO Q4HR PRN 08/11/21 08/11/21 5-325] carvediloL [Coreg] 3.125 mg PO DIRECTED 08/11/21 08/11/21 lisinopriL [Zestril] 5 mg PO DIRECTED 08/11/21 08/11/21 Previous Rx's Medication Instructions Recorded Atorvastatin [Lipitor] 80 mg PO HS #90 tab 03/18/19 Furosemide [Lasix] 40 mg PO BID@0900,1600 30 Days #60 07/31/21 tab Pantoprazole [Protonix] 40 mg PO DAILY 30 Days #30 tab 07/31/21 Prochlorperazine [Compazine] 10 mg PO Q6H PRN #30 tab 07/31/21 Potassium Chloride ER [K-Dur 20] 20 meq PO BID 3 Days #6 tab 08/11/21 Allergies Allergy/AdvReac Type Severity Reaction Status Date / Time No Known Allergies Allergy Verified 08/11/21 18:19 Review of Systems ROS Statement: Those systems with pertinent positive or pertinent negative responses have been documented in the HPI. ROS Other: All systems not noted in ROS Statement are negative. Past Medical History Past Medical History: Cancer, CVA/TIA, GERD/Reflux, Hyperlipidemia, Hypertension Additional Past Medical History / Comment(s): Severe B12 deficiency, allergic rhinitis, stomach cancer History of Any Multi-Drug Resistant Organisms: None Reported Past Surgical History: Cholecystectomy Additional Past Surgical History / Comment(s): mediport right chest, EGD with biopsy that showed stomach cancer June 28 but has not yet started chemotherapy, paracentesis times 2 with last one July 13 6.6 liters removed Past Anesthesia/Blood Transfusion Reactions: No Reported Reaction Additional Past Anesthesia/Blood Transfusion Reaction / Comment(s): no previous blood transfusion Past Psychological History: No Psychological Hx Reported Smoking Status: Never smoker Past Alcohol Use History: Heavy Past Drug Use History: None Reported - Past Family History Father Family Medical History: Congestive Heart Failure (CHF) Additional Family Medical History / Comment(s): Father at the age of 82 yrs from CHF. Mother Family Medical History: No Reported History Additional Family Medical History / Comment(s): Mother was healthy, not on any medications and lived to be 92 yrs old. General Exam Limitations: no limitations Course Vital Signs 08/11/21 16:31 Temperature 96.9 F L Pulse Rate 68 Respiratory 18 Rate Blood Pressure 78/51 O2 Sat by Pulse 87 L Oximetry Medical Decision Making - Lab Data Result diagrams: 08/11/21 17:52 08/11/21 17:52 Lab Results 08/11/21 08/11/21 Range/Units 17:52 17:52 WBC 13.6 H (3.8-10.6) k/uL RBC 4.03 L (4.30-5.90) m/uL Hgb 12.2 L (13.0-17.5) gm/dL Hct 36.4 L (39.0-53.0) % MCV 90.4 (80.0-100.0) fL MCH 30.4 (25.0-35.0) pg MCHC 33.6 (31.0-37.0) g/dL RDW 17.8 H (11.5-15.5) % Plt Count 443 (150-450) k/uL MPV 7.6 Neutrophils % 94 % Lymphocytes % 5 % Monocytes % 1 % Eosinophils % 0 % Basophils % 0 % Neutrophils # 12.7 H (1.3-7.7) k/uL Lymphocytes # 0.6 L (1.0-4.8) k/uL Monocytes # 0.2 (0-1.0) k/uL Eosinophils # 0.0 (0-0.7) k/uL Basophils # 0.0 (0-0.2) k/uL Anisocytosis Slight Sodium 132 L (137-145) mmol/L Potassium 3.0 L (3.5-5.1) mmol/L Chloride 91 L (98-107) mmol/L Carbon Dioxide 32 H (22-30) mmol/L Anion Gap 9 mmol/L BUN 49 H (9-20) mg/dL Creatinine 1.34 H (0.66-1.25) mg/dL Est GFR (CKD-EPI)AfAm 63 (>60 ml/min/1.73 sqM) Est GFR (CKD-EPI)NonAf 54 (>60 ml/min/1.73 sqM) Glucose 126 H (74-99) mg/dL Calcium 8.8 (8.4-10.2) mg/dL Magnesium 2.2 (1.6-2.3) mg/dL Disposition Clinical Impression: Hypokalemia Disposition: HOME SELF-CARE Condition: Fair Instructions (If sedation given, give patient instructions): Hypokalemia (ED) Prescriptions: Potassium Chloride ER [K-Dur 20] 20 meq PO BID 3 Days #6 tab Is patient prescribed a controlled substance at d/c from ED?: No Referrals: Paty Velazquez MD [Family Provider] - 1-2 days
[2021-08-11 18:30] LABS: Anisocytosis Slight; Basophils % (A) 0 %; Eosinophils % (A) 0 %; HCT 36.4 % (39.0-53.0); HGB 12.2 gm/dL (13.0-17.5); Lymphocytes # (A) 0.6 k/uL (1.0-4.8); Lymphocytes % (A) 5 %; MCH 30.4 pg (25.0-35.0); MCHC 33.6 g/dL (31.0-37.0); MCV 90.4 fL (80.0-100.0); Mean Platelet Volume 7.6; Monocytes # (A) 0.2 k/uL (0-1.0); Monocytes % (A) 1 %; Neutrophils # (A) 12.7 k/uL (1.3-7.7); Neutrophils % (A) 94 %; Platelet Count 443 k/uL (150-450); RBC 4.03 m/uL (4.30-5.90); RDW 17.8 % (11.5-15.5); WBC 13.6 k/uL (3.8-10.6)
[2021-08-11 18:43] LABS: Calcium 8.8 mg/dL (8.4-10.2); Magnesium 2.2 mg/dL (1.6-2.3)
[2021-08-11] MEDS ORDERED: POTASSIUM CHLORIDE ER 20 MEQ TAB.ER PO STA (19:10)
[2021-08-11] MEDS ORDERED: SODIUM CHLORIDE 0.9% 1,000 ML IV STA (19:50)
[2021-08-11] MEDS ORDERED: POTASSIUM CHLORIDE 20 MEQ in WATER FOR INJECTION 1 100ML.BAG IVPB STA (19:51)
--- NOTE | 2021-08-11 19:52 | ED ---
Medical Decision Making - Medical Decision Making Patient is reevaluated at the bedside at 7:50 PM. Nurse rechecked vitals and it was still slightly low. This likely secondary dehydration. Patient will be given intravenous fluids. And will be monitored closely in the emergency room. at the bedside began to lose peaked more about patient's history of present illness patient states that patient has low blood pressure measurements at home. Patient does not have any history of hypertension. Patient have a hypoxic measurements however with poor waveform. Apparently we have a lot of nonfunctioning equipment here in the emergency room. Family was able to get a good pulse ox monitor. Patient continually hypoxic. Patient placed on supple oxygen with persistently improved oxygen. Patient has normal x-ray and he does not complain of any shortness of breath. However he does have history of gastric cancer and he is hypoxic there is concern of pulmonary embolus. Chart review was performed. Patient had similar episode during last admission earlier this month. A CTA that was negative for PE. Pneumonia. Does not appear to be any sort of evaluation by welfare centre manager. Nonetheless patient has gastric cancer and is hypoxic requiring oxygen. There is concern of pulmonary embolus. Patient not complaining of shortness of breath. He is not tachypneic or dyspneic. VQ scan ordered. Patient empirically started on heparin at this time to VQ scan can be ordered. Patient will be admitted per case discussed with Dr. Clarke is willing to accept patient's care. Pulmonology will be consulted. Dr. Clarke agrees to follow-up with the computed tomography scan results and determine need for continuation of heparin. His pressure significantly improved with intravenous fluids. Since to be admitted patient was given parenteral potassium along with his oral potassium. - Lab Data Result diagrams: 08/11/21 17:52 08/11/21 17:52 Lab Results 08/11/21 08/11/21 Range/Units 17:52 17:52 WBC 13.6 H (3.8-10.6) k/uL RBC 4.03 L (4.30-5.90) m/uL Hgb 12.2 L (13.0-17.5) gm/dL Hct 36.4 L (39.0-53.0) % MCV 90.4 (80.0-100.0) fL MCH 30.4 (25.0-35.0) pg MCHC 33.6 (31.0-37.0) g/dL RDW 17.8 H (11.5-15.5) % Plt Count 443 (150-450) k/uL MPV 7.6 Neutrophils % 94 % Lymphocytes % 5 % Monocytes % 1 % Eosinophils % 0 % Basophils % 0 % Neutrophils # 12.7 H (1.3-7.7) k/uL Lymphocytes # 0.6 L (1.0-4.8) k/uL Monocytes # 0.2 (0-1.0) k/uL Eosinophils # 0.0 (0-0.7) k/uL Basophils # 0.0 (0-0.2) k/uL Anisocytosis Slight Sodium 132 L (137-145) mmol/L Potassium 3.0 L (3.5-5.1) mmol/L Chloride 91 L (98-107) mmol/L Carbon Dioxide 32 H (22-30) mmol/L Anion Gap 9 mmol/L BUN 49 H (9-20) mg/dL Creatinine 1.34 H (0.66-1.25) mg/dL Est GFR (CKD-EPI)AfAm 63 (>60 ml/min/1.73 sqM) Est GFR (CKD-EPI)NonAf 54 (>60 ml/min/1.73 sqM) Glucose 126 H (74-99) mg/dL Calcium 8.8 (8.4-10.2) mg/dL Magnesium 2.2 (1.6-2.3) mg/dL Disposition Clinical Impression: Hypokalemia, Hypoxia Disposition: ADMITTED IP TO THIS HOSP Condition: Critical Instructions (If sedation given, give patient instructions): Hypokalemia (ED) Prescriptions: Potassium Chloride ER [K-Dur 20] 20 meq PO BID 3 Days #6 tab Referrals: Paty Velazquez MD [Family Provider] - 1-2 days
--- NOTE | 2021-08-11 20:24 | XR ---
EXAMINATION TYPE: XR chest 1V portable DATE OF EXAM: 08/11/2021 CLINICAL HISTORY: hypoxia. TECHNIQUE: Portable frontal view of the chest. COMPARISON: 08/10/2021 FINDINGS: Right-sided MediPort redemonstrated. The cardiomediastinal silhouette is within normal harding its for size. Pulmonary vasculature is normal. There is persistent right basilar mild airspace opacit y, which is decreased versus 07/31/2021. No pleural effusion. No pneumothorax seen. No acute displace d osseous fracture. IMPRESSION: Mild interval decrease of right basilar airspace opacity versus 07/31/2021.
[2021-08-11] MEDS ORDERED: HEPARIN SODIUM 1,000 UN/ML (10ML VL) IV ONE (22:38)
[2021-08-11] MEDS ORDERED: HEPARIN SODIUM 1,000 UN/ML (10ML VL) IV PRN (22:38)
[2021-08-11] MEDS ORDERED: HEPARIN SOD,PORK IN 0.45% NACL 25,000 UNIT in 0.45% NACL 1 250ML.BAG IV SCH (22:45)
[2021-08-11] MEDS ORDERED: NALOXONE 0.4 MG/ML 1 ML VIAL IV PRN (22:47)
[2021-08-11] MEDS ORDERED: ACETAMINOPHEN TAB 325 MG TAB PO PRN (22:47)
[2021-08-12] MEDS: SODIUM CHLORIDE 0.9% 1,000 ML IV SCH ×2 (00:03→09:20)
[2021-08-12] MEDS ORDERED: HYDROcodone/APAP 5-325MG 1 EACH TAB PO PRN (00:18)
--- NOTE | 2021-08-12 00:27 | P.HPIM ---
History of Present Illness H&P Date: 08/12/21 Chief Complaint: Hypoxemia 70-year-old male with history of hypertension and hyperlipidemia Age and chief complaint is feeling rundown and tired since his chemotherapy couple days ago Patient recently diagnosed with gastric cancer about 6 weeks ago. He had received his first round of chemotherapy about couple days ago. He tolerated well denies any abdominal pain nausea or vomiting. He went to his oncologist today for follow-up on blood work he was told that he has low potassium and was sent to the ER for evaluation. Upon evaluation in the ED he was found to have low potassium and hypotension he was given IV fluid and potassium replacement however just before discharge she was noticed to have hypoxemia which was confirmed with different devices. Due to patient acute kidney injury CTA of the chest was not feasible to be done at this time. However patient has elevated d- dimer. Patient had the similar complaints about a month ago CTA of the chest was done at that time showing no acute PE. Patient denies any recent travel or hospitalization otherwise however he does have new diagnosis of gastric cancer. He denies any hemoptysis or coughing he denies any chest pain or trouble breathing he denies any fevers or chills he denies any leg cramps or tenderness. However he does have bilateral leg swelling which has been going on for a few weeks now. Patient was started on heparin empirically for presumed underlying PE, VQ scan to be checked in the morning patient admitted for further care Review of Systems Pertinent positives as noted in HPI. All other systems were reviewed and are negative Past Medical History Past Medical History: Cancer, CVA/TIA, GERD/Reflux, Hyperlipidemia, Hypertension Additional Past Medical History / Comment(s): Severe B12 deficiency, allergic rhinitis, stomach cancer History of Any Multi-Drug Resistant Organisms: None Reported Past Surgical History: Cholecystectomy Additional Past Surgical History / Comment(s): mediport right chest, EGD with b iopsy that showed stomach cancer June 28 but has not yet started chemotherapy, paracentesis times 2 with last one July 13 6.6 liters removed Past Anesthesia/Blood Transfusion Reactions: No Reported Reaction Additional Past Anesthesia/Blood Transfusion Reaction / Comment(s): no previous blood transfusion Past Psychological History: No Psychological Hx Reported Smoking Status: Never smoker Past Alcohol Use History: Heavy Past Drug Use History: None Reported - Past Family History Father Family Medical History: Congestive Heart Failure (CHF) Additional Family Medical History / Comment(s): Father at the age of 82 yrs from CHF. Mother Family Medical History: No Reported History Additional Family Medical History / Comment(s): Mother was healthy, not on any medications and lived to be 92 yrs old. Medications and Allergies Home Medications Medication Instructions Recorded Confirmed Type Atorvastatin [Lipitor] 80 mg PO HS #90 tab 03/18/19 08/11/21 Rx Furosemide [Lasix] 40 mg PO BID@0900,1600 30 Days #60 07/31/21 08/11/21 Rx tab Pantoprazole [Protonix] 40 mg PO DAILY 30 Days #30 tab 07/31/21 08/11/21 Rx Prochlorperazine [Compazine] 10 mg PO Q6H PRN #30 tab 07/31/21 08/11/21 Rx Clopidogrel [Plavix] 75 mg PO DIRECTED 08/11/21 08/11/21 History HYDROcodone/APAP 5-325MG [[place] 1 tab PO Q4HR PRN 08/11/21 08/11/21 History 5-325] Potassium Chloride ER [K-Dur 20] 20 meq PO BID 3 Days #6 tab 08/11/21 Rx carvediloL [Coreg] 3.125 mg PO DIRECTED 08/11/21 08/11/21 History lisinopriL [Zestril] 5 mg PO DIRECTED 08/11/21 08/11/21 History Allergies Allergy/AdvReac Type Severity Reaction Status Date / Time No Known Allergies Allergy Verified 08/11/21 18:19 Physical Exam Vitals: Vital Signs Temp Pulse Resp BP Pulse Ox 08/12/21 00:07 79 17 100/69 95 08/12/21 00:06 79 17 100/69 95 08/11/21 23:48 81 16 97/65 96 08/11/21 21:47 98 16 99/77 93 L 08/11/21 16:31 96.9 F L 68 18 78/51 87 L Intake and Output 08/11/21 08/11/21 08/12/21 14:59 22:59 06:59 Other: Weight 68.039 kg Constitutional: No acute distress, conversant, cooperative, cachectic disheveled Eyes: Anicteric sclerae, moist conjunctiva, Pupils equal round reactive to light ENMT: NC/AT Oropharynx clear, no erythema, or exudates Neck: Supple, FROM, no masses, or JVD No carotid bruits No thyromegaly Lungs: Clear to auscultation Clear to percussion Normal respiratory effort, no accessory muscle use Cardiovascular: Heart regular in rate and rhythm, No murmurs, gallops, or rubs Post to bilateral peripheral edema Abdominal: Soft Nontender, no guarding, rebound or rigidity Abdomen moving with respiration Normoactive bowel sounds No hepatomegaly, No splenomegaly No palpable mass No abdominal wall hernia noted Skin: Normal temperature, tone, texture, turgor No induration No subcutaneous nodules No rash, lesions No ulcers Extremities: No digital cyanosis No clubbing Pedal pulses intact and symmetrical Radial pulses intact and symmetrical No calf tenderness Psychiatric: Alert and oriented to person, place and time Appropriate affect fair judgement Neuro Muscles Strength 4/5 in all 4 extremities Sensation to light touch grossly present throughout Cranial nerves II-XII grossly intact Lymphatics: no palpable cervical or supraclavicular , or inguinal lymph nodes Results CBC & Chem 7: 08/11/21 17:52 08/11/21 17:52 Labs: Abnormal Lab Results - Last 24 Hours (Table) 08/11/21 08/11/21 08/11/21 Range/Units 17:52 17:52 23:13 WBC 13.6 H (3.8-10.6) k/uL RBC 4.03 L (4.30-5.90) m/uL Hgb 12.2 L (13.0-17.5) gm/dL Hct 36.4 L (39.0-53.0) % RDW 17.8 H (11.5-15.5) % Neutrophils # 12.7 H (1.3-7.7) k/uL Lymphocytes # 0.6 L (1.0-4.8) k/uL APTT (22.0-30.0) sec D-Dimer 10.63 H (<0.60) mg/L FEU Sodium 132 L (137-145) mmol/L Potassium 3.0 L (3.5-5.1) mmol/L Chloride 91 L (98-107) mmol/L Carbon Dioxide 32 H (22-30) mmol/L BUN 49 H (9-20) mg/dL Creatinine 1.34 H (0.66-1.25) mg/dL Glucose 126 H (74-99) mg/dL 08/11/21 Range/Units 23:44 WBC (3.8-10.6) k/uL RBC (4.30-5.90) m/uL Hgb (13.0-17.5) gm/dL Hct (39.0-53.0) % RDW (11.5-15.5) % Neutrophils # (1.3-7.7) k/uL Lymphocytes # (1.0-4.8) k/uL APTT 20.0 L (22.0-30.0) sec D-Dimer (<0.60) mg/L FEU Sodium (137-145) mmol/L Potassium (3.5-5.1) mmol/L Chloride (98-107) mmol/L Carbon Dioxide (22-30) mmol/L BUN (9-20) mg/dL Creatinine (0.66-1.25) mg/dL Glucose (74-99) mg/dL Assessment and Plan Assessment: Acute hypoxic respiratory failure rule out underlying acute PE Hypokalemia Dehydration Acute kidney injury Plan Hold nephrotoxic meds Check VQ scan in a.m. IV fluid hydration with normal saline Replace potassium Supplemental oxygen as needed Heparin drip for possible underlying PE Recent CTA of the chest done a month ago showed no acute PE Check bilateral lower extremity venous Doppler ultrasound D-dimer elevated Check magnesium, follow potassium level, follow-up renal function level Chronic conditions Hypertension currently hypotensive, continue with Coreg with hold parameters Hyperlipidemia continue statin Full code DVT prophylaxis: On heparin drip for possible PE Discussed with: Patient, ER, RN Anticipated length of stay more than [address]: Home A total of 65 minutes was spent on the care of this complex patient more than 50% of the time was spent in counseling and care coordination.
[2021-08-12 00:36] VITALS: RESP 18
[2021-08-12] MEDS ORDERED: PANTOPRAZOLE 40 MG TABLET PO SCH (07:30)
[2021-08-12] MEDS ORDERED: CLOPIDOGREL 75 MG TAB PO SCH (09:00)
[2021-08-12] MEDS ORDERED: PANTOPRAZOLE 40 MG/10 ML VIAL IV SCH (09:00)
[2021-08-12] MEDS ORDERED: carvediloL 3.125 MG TAB PO SCH (09:00)
[2021-08-12 09:08] VITALS: TEMP 98
[2021-08-12 09:34] LABS: Anisocytosis Slight; Basophils % (A) 0 %; Eosinophils % (A) 0 %; Lymphocytes # (A) 0.7 k/uL (1.0-4.8); Lymphocytes % (A) 7 %; MCH 30.7 pg (25.0-35.0); MCHC 33.2 g/dL (31.0-37.0); MCV 92.6 fL (80.0-100.0); Mean Platelet Volume 7.9; Monocytes # (A) 0.1 k/uL (0-1.0); Monocytes % (A) 1 %; Neutrophils # (A) 8.8 k/uL (1.3-7.7); Neutrophils % (A) 91 %; Platelet Count 370 k/uL (150-450); RBC 3.89 m/uL (4.30-5.90); RDW 17.6 % (11.5-15.5); WBC 9.7 k/uL (3.8-10.6)
[2021-08-12 09:48] LABS: Albumin 2.6 g/dL (3.5-5.0); Calcium 8.6 mg/dL (8.4-10.2); Magnesium 2.3 mg/dL (1.6-2.3); Potassium 4.4 mmol/L (3.5-5.1); Total Bilirubin 0.9 mg/dL (0.2-1.3); Total Protein 5.7 g/dL (6.3-8.2)
[2021-08-12] MEDS ORDERED: IPRATROPIUM-ALBUTEROL 3 ML NEB INHALATION PRN (10:23)
--- NOTE | 2021-08-12 10:35 | US ---
EXAMINATION TYPE: US venous doppler duplex LE DATE OF EXAM: 08/12/2021 12:30 AM COMPARISON: NONE CLINICAL HISTORY: dvt. difficulty breathing SIDE PERFORMED: Bilateral TECHNIQUE: The lower extremity deep venous system is examined utilizing real time linear array sonog miky with graded compression, doppler sonography and color-flow sonography. VESSELS IMAGED: Common Femoral Vein Deep Femoral Vein Greater Saphenous Vein * Femoral Vein Popliteal Vein Small Saphenous Vein * Proximal Calf Veins (* superficial vessels) There is normal flow, compressibility, vascular waveforms. Right Leg: Negative for DVT Left Leg: Negative for DVT IMPRESSION: No evident deep venous thrombosis within the lower extremities from the level of the knee s centrally
--- NOTE | 2021-08-12 10:59 | P.CNPUL ---
History of Present Illness Consult date: 08/12/21 Requesting physician: Fallon Bajwa Reason for consult: other (Low oxygen saturation.) Chief complaint: Feeling rundown History of present illness: This is a 70-year-old white male with history of recently diagnosed gastric cancer about 6 weeks ago. Patient received his first round of chemotherapy couple of days ago. Patient tolerated chemotherapy well, however he was seen on follow-up by the oncologist, and he was noted to have low potassium of 3.0. Hence the patient was advised to go to the ER for treatment of his hypokalemia. Patient came into the ER, and his received potassium replacement therapy intravenously, and he was about to be discharged home, however his O2 saturation was noted to be low. Apparently his O2 saturation was as low as 87% on room air, and the patient had no symptoms of shortness of breath cough or wheezing whatsoever. Patient has been a heavy smoker over the years, but he was never diagnosed with COPD. Recently the patient had ascites, and he underwent multiple paracentesis procedures since his diagnosis of cancer was made. Cytology on the peritoneal fluid was negative. But back on 07/29/21, patient had a CT of the chest/CT angiogram because of elevated d-dimer, and there was no evidence of pulmonary embolism, there was evidence of bilateral pleural effusions. His last paracentesis was done on 08/11 and again, he had 2.5 L of fluid drained from his peritoneal cavity. Cytology is pending again. His renal function was borderline on this admission, and considering that the patient had a relatively normal chest x-ray, there was no evidence of pleural effusion on his recent chest x-ray, the admitting physician was concerned about his elevated d-dimer and his low O2 saturation, but could not order a CT angiogram not to mention the patient had a CT angiogram only 2 weeks ago. He ordered a venous Doppler, and it came back negative for DVT in both lower extremities. During my evaluation, the patient had no symptoms of shortness of breath, no cough, no wheezing. I believe his low O2 saturation is related to underlying COPD and r ecurrent pleural effusion buildup bilaterally related to his peritoneal fluid/ascites. Hence I'm recommending that the patient could be discharged home on oxygen if he qualifies and on bronchodilators. I don't see any value of repeating his CT angiogram at this point. Review of Systems Constitutional: Negative HEENT: Negative Pulmonary: As noted in HPI, no cough no wheezing no shortness of breath no chest pain. Cardiac: Negative GI: As noted in HPI patient has recurrent ascites. Genitourinary: Negative Muscular skeletal: Negative Skin: Negative Neuropsych: Negative Endocrine: Negative Neurologic: Negative Past Medical History Past Medical History: Cancer, CVA/TIA, GERD/Reflux, Hyperlipidemia, Hypertension Additional Past Medical History / Comment(s): Severe B12 deficiency, allergic rhinitis, stomach cancer History of Any Multi-Drug Resistant Organisms: None Reported Past Surgical History: Cholecystectomy Additional Past Surgical History / Comment(s): mediport right chest, EGD with biopsy that showed stomach cancer June 28 but has not yet started chemotherapy, paracentesis times 2 with last one July 13 6.6 liters removed Past Anesthesia/Blood Transfusion Reactions: No Reported Reaction Additional Past Anesthesia/Blood Transfusion Reaction / Comment(s): no previous blood transfusion Past Psychological History: No Psychological Hx Reported Smoking Status: Never smoker Past Alcohol Use History: Heavy Past Drug Use History: None Reported - Past Family History Father Family Medical History: Congestive Heart Failure (CHF) Additional Family Medical History / Comment(s): Father at the age of 82 yrs from CHF. Mother Family Medical History: No Reported History Additional Family Medical History / Comment(s): Mother was healthy, not on any medications and lived to be 92 yrs old. Medications and Allergies Home Medications Medication Instructions Recorded Confirmed Type Atorvastatin [Lipitor] 80 mg PO HS #90 tab 03/18/19 08/11/21 Rx Furosemide [Lasix] 40 mg PO BID@0900,1600 30 Days #60 07/31/21 08/11/21 Rx tab Pantoprazole [Protonix] 40 mg PO DAILY 30 Days #30 tab 07/31/21 08/11/21 Rx Prochlorperazine [Compazine] 10 mg PO Q6H PRN #30 tab 07/31/21 08/11/21 Rx Clopidogrel [Plavix] 75 mg PO DIRECTED 08/11/21 08/11/21 History HYDROcodone/APAP 5-325MG [[place] 1 tab PO Q4HR PRN 08/11/21 08/11/21 History 5-325] Potassium Chloride ER [K-Dur 20] 20 meq PO BID 3 Days #6 tab 08/11/21 Rx carvediloL [Coreg] 3.125 mg PO DIRECTED 08/11/21 08/11/21 History lisinopriL [Zestril] 5 mg PO DIRECTED 08/11/21 08/11/21 History Allergies Allergy/AdvReac Type Severity Reaction Status Date / Time No Known Allergies Allergy Verified 08/11/21 18:19 Physical Exam Vitals: Vital Signs Temp Pulse Pulse Resp BP BP Pulse Ox 08/12/21 08:00 98.0 F 98 18 114/74 94 L 08/12/21 04:00 98.1 F 76 18 99/62 97 08/12/21 02:00 77 08/12/21 00:14 98.9 F 77 18 119/69 98 08/12/21 00:07 79 17 100/69 95 08/12/21 00:06 79 17 100/69 95 08/11/21 23:48 81 16 97/65 96 08/11/21 21:47 98 16 99/77 93 L 08/11/21 16:31 96.9 F L 68 18 78/51 87 L Intake and Output 08/11/21 08/12/21 08/12/21 22:59 06:59 14:59 Other: Voiding Method Urinal Urinal Diaper Diaper # Voids 1 Weight 68.039 kg 68.2 kg General Impression: Revealed a 70-year-old white male in no distress, on 4 L nasal cannula, O2 saturation 97%. HEENT: Normocephalic atraumatic, extra-ocular movements intact, pupils equal and reactive to light bilaterally, dry mucous membranes noted. Cardiovascular: Normal S1 and S2, no S3 gallop. Chest: Symmetrical chest expansion, diminished breath sound bilaterally, no rhonchi and no wheezes. Abdomen: abdomen soft, non-tender, non-distended, no organomegaly Musculoskeletal: No deformities noted limitation range of motion Extremities: No clubbing trace of bipedal edema noted in the lower extremities above the ankles. Neurological: Alert and oriented 3 no focal deficits. Skin: No rashes. Psych: Normal mood affect and normal mental status examination. Results - Laboratory Findings CBC and BMP: 08/12/21 07:49 08/12/21 07:49 PT/INR, D-dimer D-Dimer 10.63 mg/L FEU (<0.60) H 08/11/21 23:13 Abnormal lab findings: Abnormal Labs 08/11/21 08/11/21 08/11/21 17:52 17:52 23:13 WBC 13.6 H RBC 4.03 L Hgb 12.2 L Hct 36.4 L RDW 17.8 H Neutrophils # 12.7 H Lymphocytes # 0.6 L APTT D-Dimer 10.63 H Sodium 132 L Potassium 3.0 L Chloride 91 L Carbon Dioxide 32 H BUN 49 H Creatinine 1.34 H Glucose 126 H Alkaline Phosphatase Total Protein Albumin 08/11/21 08/12/21 08/12/21 23:44 07:49 07:49 WBC RBC 3.89 L Hgb 12.0 L Hct 36.0 L RDW 17.6 H Neutrophils # 8.8 H Lymphocytes # 0.7 L APTT 20.0 L D-Dimer Sodium 135 L Potassium Chloride 97 L Carbon Dioxide BUN 45 H Creatinine Glucose 118 H Alkaline Phosphatase 133 H Total Protein 5.7 L Albumin 2.6 L 08/12/21 07:49 WBC RBC Hgb Hct RDW Neutrophils # Lymphocytes # APTT 59.2 H D-Dimer Sodium Potassium Chloride Carbon Dioxide BUN Creatinine Glucose Alkaline Phosphatase Total Protein Albumin - Diagnostic Findings Chest x-ray: image reviewed (Chest x-ray on this admission showed almost near complete resolution of his right lower lobe infiltrate which was present a few weeks ago.) CT scan - chest: image reviewed (CT angiogram of the chest from 2 weeks ago showed emphysematous changes in both lungs, bilateral pleural effusions, no evidence of pulmonary embolism, he was also found to have mediastinal adenopathy) Assessment and Plan Assessment: Impression: Acute hypoxic respiratory failure, strongly doubt pulmonary embolism, I believe his hypoxia is related to his underlying COPD and I believe it is probably chronic rather than acute. It is also related to the fact that the patient keeps developing ascites and bilateral pleural effusions related to his underlying gastric malignancy. Considering the patient is asymptomatic and he has no active pulmonary symptoms and considering the patient has had a CT angiogram of the chest showing no evidence of pulmonary embolism I would suggest patient could be discharged home and follow up on outpatient basis. Patient could be sent on home oxygen if he qualifies for home oxygen with low O2 satu ration on room air or with a 6 minute walk. Considering the patient is asymptomatic, he may not even use his oxygen. Underlying COPD is strongly suspected. History of recurrent bilateral pleural effusions and ascites. Acute kidney injury, most likely prerenal azotemia, and the related to dehydration, would not recommend CT angiogram of the chest repeated at this point specially with negative recent CT angiogram of the chest and negative venous Doppler today. Hypokalemia on presentation, resolved. Recommendation: Will clear the patient to be discharged home on oxygen, DuoNeb updrafts, Symbicort, and follow-up on outpatient basis. Patient should continue to follow-up with his oncologist. We will sign off and see the patient on when necessary basis. Time with Patient: Greater than 30
[2021-08-12 12:21] VITALS: BMI 18.3
--- NOTE | 2021-08-12 13:12 | NM ---
EXAMINATION TYPE: NM pul vent and perfuse DATE OF EXAM: 08/12/2021 COMPARISON: Chest x-ray 08/11/2021, CT 07/29/2021 HISTORY: Hypoxia, rule out PE, difficulty breathing TECHNIQUE: Utilizing inhalation of 34.2 mCi Tc 99m DTPA aerosol and intravenous injection of 4.5 mCi of Tc 99m MAA, ventilation and perfusion images are acquired post injection in multiple projections. FINDINGS: There is abnormal low radiopharmaceutical uptake on both ventilation and perfusion imaging in the up per lobes, patient with underlying emphysema. Matching defects present within the left lower lobe, ri ght lower lobe are sizable, additionally a right upper lobe anteriorly shows a mismatch seen on the l ateral exam, anterior this matched defects also present on the left. Some central clumping of intrame niscal noted on the ventilation imaging. Multiple subsegmental mismatch defects are also present bila terally. IMPRESSION: High probability of pulmonary embolus. A Red level critical message alert has been initiated for Fallon Bajwa MD via the [employer] Critical Results System on 08/12/2021 1:08 PM. This message alert has been sent to Fallon wild MD via the preferences provided by the clinician for the receipt of Radiology Critical Findings. Mukund essage ID [id number].
[2021-08-12 13:13] VITALS: BP 125/79; PULSE 72
[2021-08-12] MEDS ORDERED: SODIUM CHLORIDE 0.9% 1,000 ML IV SCH (13:45)
--- NOTE | 2021-08-12 13:59 | P.DS ---
Providers Date of admission: 08/11/21 22:47 Expected date of discharge: 08/12/21 Attending physician: Fallon Bajwa MD Consults: 08/11/21 22:48 Consult Physician Routine Consulting Provider: Irais Hay Consult Reason/Comments: hypoxic respiratory failure Do you want consulting provider notified?: Yes Primary care physician: Timo Cheung MD Hospital Course: This is a 70-year-old male with recently diagnosed gastric cancer approximately 6 weeks ago status post first round of chemotherapy that presented to the emergency room sent by his oncologist for hypokalemia and potassium replacement. Apparently ER staff ordered a d-dimer for unclear reasons any evidence elevated secondary to underlying cancer. Patient was then admitted to the hospital to rule out PE. Of note, patient had a CT angiogram last week that was negative for PE. Patient had a mild acute kidney injury on presentation and was treated with aggressive IV fluid hydration with improvement in his creatinine. Doppler ultrasound was negative for DVT in both lower extremities. VQ scan showed high probability for PE. Patient denies any shortness of breath or chest pain. No hemoptysis. No clinical suspicion for underlying PE other than high risk secondary to underlying malignancy. Patient was seen and evaluated by pulmonary. He was high suspicion of patient having underlying COPD/emphysema that may resulted in his VQ scan mismatch. Patient will be sent home with home O2. He will be discharged home in a stable condition. Follow up in the office as directed. Physical exam: General: The patient is awake and alert, in no distress Eye: there is normal conjunctiva bilaterally. Neck: The neck is supple, there is no JVD. Cardiovascular: Normal S1-S2, no S3-S4, no murmurs. Respiratory: Lungs clear to auscultation bilaterally Gastrointestinal: Abdomen is soft, nontender Musculoskeletal: There is no pedal edema. Neurological:. Speech is normal. Skin: Skin is warm and dry Patient Condition at Discharge: Fair Plan - Discharge Summary Discharge Rx Participant: No New Discharge Prescriptions: New Potassium Chloride ER [K-Dur 20] 20 meq PO BID 3 Days #6 tab Budesonide-Formot 160-4.5 Mcg [Symbicort 160-4.5 Mcg Inhaler] 2 puff INHALATION RT-BID #30 gm Continue Atorvastatin [Lipitor] 80 mg PO HS #90 tab Prochlorperazine [Compazine] 10 mg PO Q6H PRN #30 tab PRN Reason: Nausea And Vomiting Furosemide [Lasix] 40 mg PO BID@0900,1600 30 Days #60 tab carvediloL [Coreg] 3.125 mg PO DIRECTED Pantoprazole [Protonix] 40 mg PO DAILY 30 Days #30 tab HYDROcodone/APAP 5-325MG [[place] 5-325] 1 tab PO Q4HR PRN PRN Reason: Moderate Pain Clopidogrel [Plavix] 75 mg PO DIRECTED lisinopriL [Zestril] 5 mg PO DIRECTED Discharge Medication List Atorvastatin [Lipitor] 80 mg PO HS #90 tab 03/18/19 [Rx] Furosemide [Lasix] 40 mg PO BID@0900,1600 30 Days #60 tab 07/31/21 [Rx] Pantoprazole [Protonix] 40 mg PO DAILY 30 Days #30 tab 07/31/21 [Rx] Prochlorperazine [Compazine] 10 mg PO Q6H PRN #30 tab 07/31/21 [Rx] Clopidogrel [Plavix] 75 mg PO DIRECTED 08/11/21 [History] HYDROcodone/APAP 5-325MG [[place] 5-325] 1 tab PO Q4HR PRN 08/11/21 [History] Potassium Chloride ER [K-Dur 20] 20 meq PO BID 3 Days #6 tab 08/11/21 [Rx] carvediloL [Coreg] 3.125 mg PO DIRECTED 08/11/21 [History] lisinopriL [Zestril] 5 mg PO DIRECTED 08/11/21 [History] Budesonide-Formot 160-4.5 Mcg [Symbicort 160-4.5 Mcg Inhaler] 2 puff INHALATION RT-BID #30 gm 08/12/21 [Rx] Follow up Appointment(s)/Referral(s): [facility] [NON-STAFF] - [facility], [NON-STAFF] - [facility] [NON-STAFF] - Paty Velazquez MD [Family Provider] - 1-2 days Patient Instructions/Handouts: Hypokalemia (ED) Activity/Diet/Wound Care/Special Instructions: Patient will need home O2 at 4L n/c at d/c due to COPD/Emphesema.
[2021-08-12] MEDS ORDERED: SYMBICORT 160-4.5 MCG INHALER INHALATION SCH (20:00)
[2021-08-12] MEDS ORDERED: ATORVASTATIN 80 MG TAB PO SCH (21:00)
--- NOTE | 2021-08-15 12:49 | CDI ---
Documentation Clarification Form Date: 08/15/2021 12:41:13 PM From: Reji Harrison Admit Date: 08/11/2021 10:47:00 PM Patient Name: Jj Lundberg Visit Number: [id number] Discharge Date: 08/12/2021 03:30:00 PM ATTENTION: The Clinical Documentation Specialists (CDI) and [facility] Coding Staff appreciate your assistance in clarifying documentation. Please respond to the clarification below the line at the bottom and electronically sign. The CDI & [facility] Coding staff will review the response and follow-up if needed. Please note: Queries are made part of the Legal Health Record. If you have any questions, please contact the author of this message via ITS. Dr. Graham Garcia Conflicting documentation has been found in the medical record. As attending physician, please provide clarification. Consult documents acute hypoxic respiratory failure. The same document says hypoxia probably chronic rather than acute due to COPD. Discharge summary lists hypoxic respiratory failure unspecified. Need to establish the acuity of the respiratory failure as ths will affect the DRG. History/Risk Factors: diagnosis of acute respiratory failure in consult Clinical Indicators: Treatment: CXR Please clarify which diagnosis is most appropriate: [ ] acute hypoxic respiratory failure [ ] chronic hypoxic respiratory failure [ ] Other (please specify) [ ] Unable to determine [ ] acute on chronic respiratory failure MTDD
--- NOTE | 2021-08-15 12:58 | CDI ---
Documentation Clarification Form Date: 08/15/2021 12:50:59 PM From: Reji Harrison Phone: Admit Date: 08/11/2021 10:47:00 PM Patient Name: Jj Lundberg Visit Number: [id number] Discharge Date: 08/12/2021 03:30:00 PM ATTENTION: The Clinical Documentation Specialists (CDI) and [facility] Coding Staff appreciate your assistance in clarifying documentation. Please respond to the clarification below the line at the bottom and electronically sign. The CDI & [facility] Coding staff will review the response and follow-up if needed. Please note: Queries are made part of the Legal Health Record. If you have any questions, please contact the author of this message via ITS. Dr. Graham Garcia The patients principal diagnosis the diagnosis that was chiefly responsible for the admission - has not been clearly identified and clarification is requested. The patient presented with a possible pulmonary embolism which looks ruled out. Also had hypokalemia and acute renal failure. History/Risk factors: Clinical Indicators: Lab findings: Radiology findings: CXR PE could be false reading due to emphysema Vital Signs: Treatment: IV fluids, replace K+, evaluate for PE Consults: In your professional opinion, can you please clarify which diagnosis, after study, was the reason chiefly responsible for the admission? [ ] hypokalemia [ ] acute renal failure [ ] Other, please specify [ ] Unable to determine [ ] pulmonary embolism MTDD
== END 2021-08-12 15:30 | disposition home or self-care (01) ==
LOC: EC 15:12 → 3SCARD 22:47 → INTOOBSV 22:47 → UNDODISIN 08-12 15:30
PROVIDERS: ADMIT Internal Medicine; ATTEND Internal Medicine
DX: E87.6 Hypokalemia (principal); R94.31 Abnormal electrocardiogram [ECG] [EKG]; R00.0 Tachycardia, unspecified; K21.9 Gastro-esophageal reflux disease without esophagitis; E78.5 Hyperlipidemia, unspecified; I10 Essential (primary) hypertension; E53.8 Deficiency of other specified B group vitamins; J30.2 Other seasonal allergic rhinitis; C16.9 Malignant neoplasm of stomach, unspecified; N17.9 Acute kidney failure, unspecified; I95.9 Hypotension, unspecified; R79.89 Other specified abnormal findings of blood chemistry; M79.89 Other specified soft tissue disorders; E86.0 Dehydration; J96.01 Acute respiratory failure with hypoxia; J90 Pleural effusion, not elsewhere classified; Z20.822 Contact with and (suspected) exposure to COVID-19; Z92.21 Personal history of antineoplastic chemotherapy; Z79.899 Other long term (current) drug therapy; Z79.01 Long term (current) use of anticoagulants; Z86.73 Personal history of transient ischemic attack (TIA), and cerebral infarction without residual deficits; Z90.49 Acquired absence of other specified parts of digestive tract; Z71.9 Counseling, unspecified; Z82.49 Family history of ischemic heart disease and other diseases of the circulatory system
CPT/HCPCS: 96361 ×2; 96365; 96366; 96367; 99285; 36415; 93005; 85379; 80053; 80048; 83735 ×2; 84484; 85025 ×2; 85730 ×2; 87636; 71045; 93970; 78582; G0378 ×2; A9540; A9567; J3480; J1644 ×2